=== PATIENT | female | born 1935 | race Caucasian/White ===

== ENCOUNTER 2016-08-02 23:30 | Emergency (ER) | payer OTHER, MEDICARE ==
[~2016-08-02] VITALS: Ht 152.4 cm; Wt 95.0 kg
[~2016-08-02 23:30] MED LIST: DORZ2SOL20 OPR; FLV1 PO; IBUP-1449 PO; OMEP20TA14 PO; SYMIN/8045 INH; VENL37.593 PO
[2016-08-02 23:40] VITALS: Ht 152.4 cm; Wt 95.0 kg
--- NOTE | 2016-08-03 00:04 | EMERGENCY ROOM VISIT NOTE ---
History Report prepared by Maria Victoria: Sendy Stiles Under the Supervision of: Dr. Mango Leos M.D. First contact with patient: 23:50 Chief Complaint: WEAKNESS Stated Complaint: WEAKNESS,LETHARGY, INCREASED PULSE-120 History of Present Illness The patient is an 81 year old female who presents to the Emergency Room with complaints of persistent weakness that began in April, but has worsened over past week. The patient states that she has a history of mesothelioma, and states that she had chemotherapy this past summer. She states that in April she finished radiation and since then has not been feeling well. The patient notes fatigue, decrease in appetite, and a decrease in fluid intake. Per the patient's family, they came to visit the patient for her birthday and noticed that the patient wasn't feeling well. They note that they took the patients vitals and noted that she is tachycardic, so they were concerned for dehydration. The patient states that she feels dizzy if she moves too quickly. She denies any vision changes, headaches, loss of consciousness, chest pain, abdominal pain, vomiting, rash, hematochezia, or melena. The patient states that her last bowel movement was this morning and states that it was normal. She states that her urine today has been foul smelling and has been dark in color. The patient states that she has had previous UTIs, but they have not been chronic. She notes that she was slightly anemic in the past, but denies any history of blood transfusions. The patient notes a history of hypertension , but denies any history of heart problems in the past. Source of History: patient Onset: April, over the past week Position: other (global) Quality: other (weakness) Timing: worsening, other (persistent) Associated Symptoms: + fatigue, + urinary symptoms (foul smelling and dark in color), No LOC, No abdominal pain, No chest pain, No headache, No hematochezia, No melena, No rash, No vomiting Note: Associated Symptoms: tachycardic heart rate Review of Systems See HPI for pertinent positives & negatives. A total of 10 systems reviewed and were otherwise negative. 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 (10) Monoclonal gammopathy of undetermined significance (11) Osteoarthritis (12) Osteopenia (13) Pleural effusion exudative (14) Thoracic compression fracture (15) Vitamin D deficiency Surgical Problems: (1) History of back surgery (2) History of bilateral salpingo-oophorectomy (BSO) (3) History of bronchoscopy (4) History of cardiac catheterization (5) History of cholecystectomy (6) History of colonoscopy (7) History of esophagogastroduodenoscopy (8) History of hysterectomy (9) History of knee replacement Family History Cancer Diabetes mellitus FH: lung disease Gallbladder disease Heart disease Hypertension Social History Smoking Status: Never Smoker Alcohol Use: none Drug Use: none Marital Status: Housing Status: lives with family Occupation Status: unemployed, other Current/Historical Medications Scheduled Cephalexin Monohydrate (Keflex), 500 MG PO TID Dorzolamide Hcl-Timolol Maleat (Cosopt Oph), 1 DROP OPR BID Losartan Potassium & Hydrochlo (Hyzaar), 1 TAB PO DAILY Omeprazole Magnesium (Prilosec Otc), 40 MG PO DAILY Venlafaxine Hcl (Effexor Xr), 75 MG PO DAILY Scheduled PRN Budesonide/Formoterol Fumarate (Symbicort 80/4.5 Inhaler), 2 PUFFS INH BID PRN for Shortness of Breath Ibuprofen Tab (Motrin), 400 MG PO QID PRN for Pain Allergies Coded Allergies: No Known Allergies (Verified , 10/06/15) Physical Exam Vital Signs Date Time Temp Pulse Resp B/P Pulse Ox O2 Delivery O2 Flow Rate FiO2 08/03/16 02:29 37.2 103 21 136/69 97 08/03/16 01:28 107 24 139/79 95 Room Air 08/03/16 00:59 106 21 156/70 100 Room Air 08/03/16 00:15 105 08/03/16 00:01 106 20 127/69 94 Room Air 109 103/66 115 94/61 08/02/16 23:40 36.7 114 20 132/77 94 Room Air Physical Exam GENERAL: Patient is well appearing and in minimal distress. HEENT: Pale conjunctivae. No acute trauma, normocephalic atraumatic, mucous membranes dry, no nasal congestion, no scleral icterus. NECK: No stridor, no adenopathy, no meningismus, trachea is midline. LUNGS: No dyspnea. Clear to auscultation and equal bilaterally. No wheeze, no rhonchi. HEART: Tachycardic rate and regular rhythm. No murmurs, rubs, gallops appreciated. ABDOMEN: Soft, nontender, bowel sounds positive, no masses appreciated, no peritonitis. BACK: No midline tenderness, no CVA tenderness EXTREMITIES: Normal motion all extremities, no cyanosis, no edema. NEUROLOGIC: Alert and oriented, no acute motor or sensory deficits, no focal weakness, cranial nerves grossly intact. SKIN: No rash, no jaundice, no diaphoresis. Medical Decision & Procedures ER Provider Diagnostic Interpretation: X ray results are stated below per my interpretation: Chest: elevated right hemidiaphragm with mild/moderate effusion. Some diffuse scarring of lungs. Elevated diaphragm is similar to previous. Laboratory Results 08/02/16 23:58 Red Blood Count 3.79, Mean Corpuscular Volume 90.2, Mean Corpuscular Hemoglobin 31.4, Mean Corpuscular Hemoglobin Concent 34.8, Mean Platelet Volume 9.2, Neutrophils (%) (Auto) 65.8, Lymphocytes (%) (Auto) 16.9, Monocytes (%) (Auto) 10.0, Eosinophils (%) (Auto) 6.0, Basophils (%) (Auto) 0.5, Neutrophils # (Auto ) 5.06, Lymphocytes # (Auto) 1.30, Monocytes # (Auto) 0.77, Eosinophils # (Auto ) 0.46, Basophils # (Auto) 0.04 08/02/16 23:58 Test 08/02/16 23:58 08/03/16 00:30 White Blood Count 7.69 K/uL (4.8-10.8) Red Blood Count 3.79 M/uL (4.2-5.4) Hemoglobin 11.9 g/dL (12.0-16.0) Hematocrit 34.2 % (37-47) Mean Corpuscular Volume 90.2 fL (80-100) Mean Corpuscular Hemoglobin 31.4 pg (25-34) Mean Corpuscular Hemoglobin Concent 34.8 g/dl (32-36) Platelet Count 127 K/uL (130-400) Mean Platelet Volume 9.2 fL (7.4-10.4) Neutrophils (%) (Auto) 65.8 % Lymphocytes (%) (Auto) 16.9 % Monocytes (%) (Auto) 10.0 % Eosinophils (%) (Auto) 6.0 % Basophils (%) (Auto) 0.5 % Neutrophils # (Auto) 5.06 K/uL (1.4-6.5) Lymphocytes # (Auto) 1.30 K/uL (1.2-3.4) Monocytes # (Auto) 0.77 K/uL (0.11-0.59) Eosinophils # (Auto) 0.46 K/uL (0-0.5) Basophils # (Auto) 0.04 K/uL (0-0.2) RDW Standard Deviation 43.9 fL (36.4-46.3) RDW Coefficient of Variation 13.4 % (11.5-14.5) Immature Granulocyte % (Auto) 0.8 % Immature Granulocyte # (Auto) 0.06 K/uL (0.00-0.02) Prothrombin Time 12.1 SECONDS (9.0-12.0) Prothromb Time International Ratio 1.1 (0.9-1.1) Activated Partial Thromboplast Time 25.2 SECONDS (21.0-31.0) Partial Thromboplastin Ratio 1.0 Anion Gap 12.0 mmol/L (3-11) Est Creatinine Clear Calc Drug Dose 38.5 ml/min Estimated GFR () 49.4 Estimated GFR (Non- 42.7 BUN/Creatinine Ratio 22.5 (10-20) Calcium Level 9.6 mg/dl (8.5-10.1) Phosphorus Level 2.3 mg/dl (2.5-4.9) Magnesium Level 1.7 mg/dl (1.8-2.4) Total Bilirubin 0.4 mg/dl (0.2-1) Direct Bilirubin 0.1 mg/dl (0-0.2) Aspartate Amino Transf (AST/SGOT) 33 U/L (15-37) Alanine Aminotransferase (ALT/SGPT) 27 U/L (12-78) Alkaline Phosphatase 109 U/L (45-117) Total Creatine Kinase 36 U/L (26-192) Creatine Kinase MB < 0.5 ng/ml (0.5-3.6) Creatine Kinase MB Ratio (0-3.0) Troponin I < 0.015 ng/ml (0-0.045) Pro-B-Type Natriuretic Peptide 156 pg/ml (0-1800) Total Protein 7.6 gm/dl (6.4-8.2) Albumin 3.0 gm/dl (3.4-5.0) Lipase 65 U/L (73-393) Urine Color DK YELLOW Urine Appearance CLOUDY (CLEAR) Urine pH 5.0 (4.5-7.5) Urine Specific [place] 1.023 (1.000-1.030) Urine Protein NEG (NEG) Urine Glucose (UA) NEG (NEG) Urine Ketones TRACE (NEG) Urine Occult Blood NEG (NEG) Urine Nitrite NEG (NEG) Urine Bilirubin NEG (NEG) Urine Urobilinogen NEG (NEG) Urine Leukocyte Esterase MODERATE (NEG) Urine WBC (Auto) >30 /hpf (0-5) Urine RBC (Auto) 0-4 /hpf (0-4) Urine Hyaline Casts (Auto) 5-10 /lpf (0-5) Urine Epithelial Cells (Auto) >30 /lpf (0-5) Urine Bacteria (Auto) 4+ (NEG) Urine Pathogenic Casts /lpf (0) Urine Mucus PRESENT (NONE PRSENT) Laboratory results as reviewed by me. Medications Administered Medications (Trade) Dose Ordered Sig/Carol Route Start Time Stop Time Status Last Admin Dose Admin Sodium Chloride 500 ml @ 999 mls/hr Q31M STAT IV 08/03/16 00:00 08/03/16 00:30 DC 08/03/16 00:08 999 MLS/HR Sodium Chloride (Nss 500ml) 500 ml @ 999 mls/hr Q31M STAT IV 08/03/16 00:36 08/03/16 01:06 DC 08/03/16 00:42 999 MLS/HR Ceftriaxone Sodium (Rocephin Inj) 1 gm NOW STAT IV 08/03/16 01:32 08/03/16 01:34 DC 08/03/16 01:41 1 GM ECG Indication: weakness Rate (beats per minute): 110 Rhythm: sinus tachycardia Findings: no acute ischemic change, no ectopy ED Course 2351: The patient was evaluated in room B7. A complete history and physical exam was performed. 0000: Ordered Sodium Chloride 500 ml @ 999 mls/hr IV. 0036: I reevlauated the patient and she is doing well. I discussed the exam findings with her and the patient's family notes that the patient had a chest x- ray that revealed slight fluid on the right lung. Ordered Sodium Chloride 500 ml @ 999 mls/hr IV. 0128: I reevaluated the patient at this time and she is resting comfortably. I discussed the exam findings with her and her family and I discussed the treatment plan. They all verbalized complete understanding and agreement. I offered further evaluation for the treatment, but she declined. She is ready to go home and will follow up with her appointment with her PCP tomorrow. 0132: Ordered Rocephin Inj 1 gm IV. Medical Decision Differential: Sepsis, Infectious (UTI/Pneumonia/Meningitis/etc), Metabolic/ Electrolyte Abnormality, Cardiac, Hepatic, Endocrine, Toxicologic, Neurologic, amongst other pathologies entertained. 81 yr old female with generalized weakness, strong urine, and lack of appetite. She is dehydrated appearing and BP much improved with fluid boluses. She is mildly tachycardic which improved with fluid though still a bit over 100. She is not in any distress and is feeling better. CXR with right pleural effusion with some lung scarring though I suspect this is chronic and notes recent CT Chest with same (not done at this hospital). She is having no respiratory distress and is not hypoxic nor SHOB and has clear lung sounds thus I feel this is unlikely infectious lung process. UA is clearly consistent with UTI. Given symptoms felt round IV rocephin reasonable and will do Keflex as outpatient given local resistance patterns. I discussed option of watching her in hospital but she would prefer to go home and her family members (who happen to be nurses) feel comfortable with her at home. She has PCP appointment in 12 hours and I stressed importance of keeping this so that repeat vitals can be optained. Stressed keeping well hydrated and if worsening symptoms or other concerns she will need to return for further evaluation. She has no headache, no neuro deficits, no falls and after discussing with family will hold on CT head as neurologic process unlikely. Impression Primary Impression: UTI (urinary tract infection) Additional Impression: Dehydration Scribe Attestation The scribe's documentation has been prepared under my direction and personally reviewed by me in its entirety. I confirm that the note above accurately reflects all work, treatment, procedures, and medical decision making performed by me. Departure Information Dispostion Home / Self-Care Prescriptions Cephalexin Monohydrate (Keflex) 500 Mg Cap 500 MG PO TID for 7 Days, #21 CAP Prov: Mango Leos M.D. 08/03/16 Referrals Vicente Jaquez M.D. (PCP) Forms HOME CARE DOCUMENTATION FORM, IMPORTANT VISIT INFORMATION Patient Instructions A Signature Page, ED UTI Pyelonephritis Female, My [facility] Additional Instructions Please keep your appointment later today with your Primary Provider as planned. Discuss review of your chest xray, labs, and have your vital signs rechecked. Rest and make sure to keep well hydrated. Problem Qualifiers Primary Impression: UTI (urinary tract infection) Urinary tract infection type: acute cystitis Hematuria presence: without hematuria Qualified Codes: N30.00 - Acute cystitis without hematuria
[2016-08-03] MEDS ORDERED: VENL75CA PO (00:30)
[2016-08-03] MEDS ORDERED: LOSA100T2 PO (00:31)
[2016-08-03 00:35] LABS: BASO % 0.5 %; BASO ABS # 0.04 K/uL (0-0.2); COMPLETE YES; HEMATOCRIT 34.2 % (37-47); IG% 0.8 %; LYMPH % 16.9 %; MEAN CELL VOLUME 90.2 fL (80-100); MEAN CORPUSCULAR HEMOGLOBIN 31.4 pg (25-34); MEAN CORPUSCULAR HGB CONC 34.8 g/dl (32-36); MEAN PLATELET VOLUME 9.2 fL (7.4-10.4); NEUT % 65.8 %; PLATELET COUNT 127 K/uL (130-400); RED BLOOD COUNT 3.79 M/uL (4.2-5.4); WHITE BLOOD COUNT 7.69 K/uL (4.8-10.8)
[2016-08-03] MEDS ORDERED: SODIUM CHLORIDE 0.9% 500ML 500 ML IV STA ×2 (00:36)
[2016-08-03 00:46] LABS: INR 1.1 (0.9-1.1); PROTHROMBIN TIME (PATIENT) 12.1 SECONDS (9.0-12.0)
[2016-08-03 00:54] LABS: ALT/SGPT 27 U/L (12-78); AST/SGOT 33 U/L (15-37); BLOOD UREA NITROGEN 27 mg/dl (7-18); BUN/CREATININE RATIO 22.5 (10-20); CALCIUM 9.6 mg/dl (8.5-10.1); CARBON DIOXIDE 27 mmol/L (21-32); CHLORIDE 98 mmol/L (98-107); GLUCOSE 112 mg/dl (70-99); MAGNESIUM 1.7 mg/dl (1.8-2.4); POTASSIUM 3.2 mmol/L (3.5-5.1); SODIUM 137 mmol/L (136-145)
[2016-08-03 00:56] LABS: ALKALINE PHOSPHATASE 109 U/L (45-117); PHOSPHORUS 2.3 mg/dl (2.5-4.9)
[2016-08-03 01:11] LABS: URINE APPEARANCE CLOUDY (CLEAR); URINE COLOR DK YELLOW; URINE EPITHELIAL CELL AUTO >30 /lpf (0-5); URINE NITRITE NEG (NEG); URINE SPECIFIC GRAVITY 1.023 (1.000-1.030); UROBILINOGEN NEG (NEG); ZZUR CULT IF INDIC CLEAN CATCH YES
[2016-08-03 01:16] LABS: MANUAL MICROSCOPIC REQUIRED? NO; REVIEW REQ? YES
[2016-08-03 01:23] LABS: URINE BILIRUBIN NEG (NEG)
[2016-08-03 01:25] LABS: URINE MUCUS PRESENT (NONE PRSENT)
[2016-08-03] MEDS ORDERED: CEFTRIAXONE SOD INJ 1 GM ADDVIAL IV STA (01:32)
[2016-08-03] MEDS ORDERED: CEPH500C PO (01:33)
[2016-08-03 02:29] VITALS: BP 136/69; PULSE 103; TEMP 37.2; O2SAT 97
--- NOTE | 2016-08-03 07:05 | DIAGNOSTIC IMAGING REPORT ---
CHEST ONE VIEW PORTABLE CLINICAL HISTORY: Weakness. History of mesothelioma. COMPARISON STUDY: Chest CT December 28, 2015. FINDINGS: There is no pneumothorax. Right hemithorax volume loss is noted. There is elevation of the right hemidiaphragm with a suspected small to moderate right pleural effusion. There is asymmetric interstitial thickening and nodular opacities within the right lung. Left lung is clear. Cardiac size is stable. IMPRESSION: Interval development of a [id number] right pleural effusion with asymmetric interstitial thickening and nodular opacities within the right lung. While nonspecific, the findings raise the possibility of disease progression although an infectious process could appear similar. Electronically signed by: Angelito Mehta M.D. 08/03/2016 7:03 AM Dictated Date/Time: 08/03/2016 6:57 AM
== END 2016-08-03 02:27 | disposition home or self-care (01) ==
LOC: C.EDB 23:31
DX: N39.0 Urinary tract infection, site not specified (principal); N30.00 Acute cystitis without hematuria; Z85.9 Personal history of malignant neoplasm, unspecified; I10 Essential (primary) hypertension; Z98.890 Other specified postprocedural states; Z90.49 Acquired absence of other specified parts of digestive tract; Z90.710 Acquired absence of both cervix and uterus; Z96.659 Presence of unspecified artificial knee joint; Z80.9 Family history of malignant neoplasm, unspecified; Z83.3 Family history of diabetes mellitus; Z82.49 Family history of ischemic heart disease and other diseases of the circulatory system

== ENCOUNTER → 2016-08-10 | Outpatient (CLI) | payer OTHER, MEDICARE ==
[~2016-08-10] MED LIST changes: +CEPH500C PO; +CHOL2000 PO; +DEXL60CA4 PO; +FLUO1TAB12; -FLV1 PO; +LOSA100T2 PO; +LOSA100T65 PO; +MAGN250T9 PO; +VENL75CA PO
--- NOTE | 2016-08-10 14:02 | DIAGNOSTIC IMAGING REPORT ---
VIDEO SWALLOW HISTORY: Z92.3 S/P radiation [id number] TECHNIQUE: Video fluoroscopic evaluation of swallowing was performed in the AP and lateral projections by the speech pathology staff. The patient is fed nectar-thick and thin liquid barium, a barium coated wafer, and barium pudding. FLUOROSCOPY TIME: 2.5 minutes. A cine loop was submitted. COMPARISON STUDY: None. FINDINGS: There is normal hyoid excursion and epiglottic deflection. No significant penetration or aspiration identified. Swallowing function is within normal limits. Mild esophageal dysmotility. IMPRESSION: 1. No aspiration identified. Mild esophageal dysmotility. 2. Please see the speech pathologist report for detailed findings and recommendations. Electronically signed by: Justin More M.D. 08/10/2016 2:00 PM Dictated Date/Time: 08/10/2016 1:56 PM
[2016-08-10 14:27] LABS: BASO % 0.5 %; BASO ABS # 0.04 K/uL (0-0.2); COMPLETE YES; EOS % 6.3 %; HEMATOCRIT 35.1 % (37-47); IG% 0.4 %; LYMPH % 9.2 %; LYMPH ABS # 0.68 K/uL (1.2-3.4); MEAN CELL VOLUME 91.6 fL (80-100); MEAN CORPUSCULAR HEMOGLOBIN 30.8 pg (25-34); MEAN CORPUSCULAR HGB CONC 33.6 g/dl (32-36); MEAN PLATELET VOLUME 9.3 fL (7.4-10.4); MONO % 9.2 %; NEUT % 74.4 %; PLATELET COUNT 150 K/uL (130-400); RED BLOOD COUNT 3.83 M/uL (4.2-5.4); WHITE BLOOD COUNT 7.41 K/uL (4.8-10.8)
--- NOTE | 2016-08-10 14:36 | SWALLOWING EVALUATION ---
HISTORY: This 81 year-old woman was referred for a VFSS at [facility] in order to rule out aspiration due to reported choking episodes with both food and liquids. The patient reports that she feels as though she has "an obstruction" in her throat at times as well. She indicated that she had swallowing difficulties prior to receiving her radiation and chemotherapy treatments, but they have worsened since these therapies have been completed. She also reports a poor appetite as food does not taste good, in addition to weight loss. PMH is significant for: mesothelioma (diagnosed summer), s/p VATS, COPD, anxiety and anemia. Radiation and chemotherapy treatments were completed on April of 2016. Currently the patient's diet level is regular. PROCEDURE: The patient was seen in the Radiology Department of [facility] for the VFSS. Cursory examination of the oral cavity revealed adequate dentition. Movement of the articulators was wnl. The patient was seated upright in a wheelchair and was viewed in both the Anterior-Posterior (A-P) and Lateral planes. Volitional phonation exercises completed in the A-P plane revealed bilateral vocal fold movement and vocal intensity within functional limits. In the lateral plane, the patient was given the following boluses: 1 tsp. thin liquid barium x 2, single swallow thin liquid barium self-presented and clinician-presented from a cup, sequential swallows of thin liquid barium self-presented from a straw, 1 tsp. nectar-thick liquid barium, single swallow nectar-thick liquid barium self-presented and clinician-presented from a cup, 1 tsp. barium pudding, and 1 club cracker with barium paste. The patient was then repositioned into the A-P plane and given the following boluses: 1 tsp. nectar-thick liquid barium and 1 tsp. barium pudding. RESULTS: Oral Stage: Lip closure was adequate. The patient was able to orally contain a liquid bolus upon command without lateral or posterior loss. Mastication was slow as was lingual motion for bolus transport. There was a collection of retention along the tongue after the swallow. The initiation of the pharyngeal swallow was delayed and occurred when the bolus head reached the valleculae. Pharyngeal Stage: Soft palate elevation was complete. Laryngeal elevation revealed complete superior movement of the thyroid cartilage with complete approximation of the arytenoids to the epiglottic base. Anterior hyoid excursion and epiglottic deflection were complete. Laryngeal vestibular closure was complete, with no evidence of contrast or air in the vestibule at the height of the swallow. The pharyngeal stripping wave and pharyngeal contraction were complete. The opening to the pharyngoesophageal segment was complete with distention and duration, without any bolus flow obstruction. Tongue base retraction was incomplete with a narrow column of contrast being noted between the tongue base and pharyngeal wall during the swallow. There was mild retention located in the valleculae after the swallow. There was no evidence of laryngeal penetration or aspiration for this study. Retention that remained in the pharynx was minimal. Esophageal Stage: There was mid-distal esophageal retention, suggestive of esophageal dysmotility. A liquid wash assisted to clear a majority of this retention. A prominent cricopharyngeus impression was also noted. SUMMARY/RECOMMENDATIONS: This patient presents with normal oral-pharyngeal swallowing. The patient does present with signs of esophageal dysfunction. The following is recommended: 1. Regular "slippery" diet and thin liquids. 2. Aspiration precautions, straws OK. Fully upright for meals and for 30-60 minutes after meals are complete. 3. Safe swallow strategies: Alternate solids and liquids. Small frequent meals and rest breaks during meals as needed. 4. Consider follow up with PCP or GI specialist for management of esophageal dysfunction (further testing and/or management of medications as appropriate). May also need to consider a Nutrition consult as needed due to poor appetite and risk of weight loss. A summary of the results and recommendations was discussed with the patient and understanding was verbalized. Both verbal and written information was provided and reviewed with the patient to improve comfort while eating (avoiding dry, thick, pasty, or doughy foods). She verbalized understanding. The patient reported she currently takes reflux medications but does not feel this is not assisting. Thank you for referral of this patient. Please contact me at if any additional information is needed.
[2016-08-10 14:44] LABS: BLOOD UREA NITROGEN 19 mg/dl (7-18); BUN/CREATININE RATIO 20.2 (10-20); CALCIUM 9.8 mg/dl (8.5-10.1); CARBON DIOXIDE 28 mmol/L (21-32); CHLORIDE 97 mmol/L (98-107); CREATININE 0.94 mg/dl (0.60-1.20); GLUCOSE 133 mg/dl (70-99); MAGNESIUM 1.5 mg/dl (1.8-2.4); POTASSIUM 3.1 mmol/L (3.5-5.1); SODIUM 136 mmol/L (136-145)
--- NOTE | 2016-08-17 06:31 | CODING QUERY MEDICAL NECESSITY ---
SUPPORTING DIAGNOSIS NEEDED Dr. Jaquez, A supporting diagnosis is required for the test/procedure performed on this patient in order for us to be reimbursed by the patient's insurance. Please provide a supporting diagnosis for the following test/procedure listed below next to the test name along with your signature. *If there is no additional diagnosis for this patient that would support the following test/procedure please document that below next to the test/procedure. Test(s)/Procedure(s) that require a supporting diagnosis: * ([id number]) B12 VITAMIN LEVEL DIAGNOSIS: DATE OF SERVICE: 08/10/16 Provider Signature: Date: Thank you Lalo Florez [facility] Information Management Once completed, please kindly fax back to [phone] For questions please call [phone]
== END | disposition home or self-care (01) ==
LOC: C.RAD 13:00
PROVIDERS: ATTEND Internal Medicine Geriatric Medicine
DX: R13.10 Dysphagia, unspecified (principal); Z92.3 Personal history of irradiation; N39.0 Urinary tract infection, site not specified; I10 Essential (primary) hypertension; E87.6 Hypokalemia; R53.83 Other fatigue; E55.9 Vitamin D deficiency, unspecified

== ENCOUNTER → 2016-08-15 | Outpatient (CLI) | payer OTHER, MEDICARE ==
[~2016-08-15] MED LIST changes: -CEPH500C PO
--- NOTE | 2016-08-15 12:48 | DIAGNOSTIC IMAGING REPORT ---
CHEST 2 VIEWS ROUTINE CLINICAL HISTORY: Cough, shortness of breath, malaise. COMPARISON STUDY: 08/03/2016 FINDINGS: The cardiac and mediastinal contours remain stable. There is a persistent right pleural effusion. There are diffuse right lung airspace opacity similar to the prior study. There is more focal right basilar consolidation.[ IMPRESSION: Persistent right lung volume loss, right pleural effusion, and diffuse interstitial right lung opacities. Electronically signed by: Jordy Sousa M.D. 08/15/2016 12:46 PM Dictated Date/Time: 08/15/2016 12:44 PM
== END | disposition home or self-care (01) ==
LOC: C.RADBC 12:25
PROVIDERS: ATTEND Internal Medicine Geriatric Medicine
DX: J90 Pleural effusion, not elsewhere classified (principal)

== ENCOUNTER 2016-08-30 20:32 | Inpatient (IN) | payer OTHER, MEDICARE ==
[~2016-08-30] VITALS: Ht 152.4 cm; Wt 87.4 kg
[~2016-08-30 20:32] MED LIST changes: -CHOL2000 PO; -DEXL60CA4 PO; -FLUO1TAB12; -LOSA100T65 PO; -MAGN250T9 PO; -VENL37.593 PO
[2016-08-30] MEDS ORDERED: LEVALBUTEROL 1.25MG/0.5ML NEB INH STA (20:56)
[2016-08-30] MEDS ORDERED: IPRATROPIUM BROMIDE NEB SOLN 0.02% 2.5 ML VIAL INH STA (20:56)
[2016-08-30] MEDS ORDERED: SODIUM CHLORIDE 0.9% 1000ML 1,000 ML IV STA (21:00)
--- NOTE | 2016-08-30 21:02 | EMERGENCY ROOM VISIT NOTE ---
History Report prepared by Maria Victoria: Phillip Kulkarni Under the Supervision of: Dr. Josué Tello M.D. 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 Per the patient's family, the patient suffers from Mesothelioma. The patient's oxygen perfusion level at home was 84% RA. Her heart rate was in the 100s. The patient denies chest pain, fevers, or any additional associated symptoms other than a dry cough. She denies a personal history or family history of blood clots. Source of History: patient, family Onset: BUSINESS INTEGRATION MANAGER Position: other (Respiratory System ) Timing: worsening Modifying Factors (Relieving): other (None) Associated Symptoms: + cough, No chest pain, No fevers Review of Systems See HPI for pertinent positives & negatives. A total of 10 systems reviewed and were otherwise negative. 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 (10) Monoclonal gammopathy of undetermined significance (11) Osteoarthritis (12) Osteopenia (13) Pleural effusion exudative (14) SIRS (systemic inflammatory response syndrome) (15) Thoracic compression fracture (16) Vitamin D deficiency Surgical Problems: (1) History of back surgery (2) History of bilateral salpingo-oophorectomy (BSO) (3) History of bronchoscopy (4) History of cardiac catheterization (5) History of cholecystectomy (6) History of colonoscopy (7) History of esophagogastroduodenoscopy (8) History of hysterectomy (9) History of knee replacement Family History Cancer Diabetes mellitus FH: lung disease Gallbladder disease Heart disease Hypertension Social History Smoking Status: Unknown if Ever Smoked Alcohol Use: none Drug Use: none Marital Status: Housing Status: lives with family Occupation Status: unemployed, other Current/Historical Medications Scheduled Cholecalciferol (Vitamin D3), 2,000 UNIT PO QAM Dexlansoprazole (Dexilant), 60 MG PO DAILYBB Dorzolamide Hcl-Timolol Maleat (Cosopt Oph), 1 DROP OPR BID Fluoxetine Hcl (Fluoxetine Hcl), UD Losartan Potassium (Cozaar), 100 MG PO QAM Magnesium (Magnesium), 250 MG PO QPM Venlafaxine Hcl (Venlafaxine Extended Rel), 37.5 MG PO UD Allergies Coded Allergies: No Known Allergies (Verified , 08/30/16) Physical Exam Vital Signs Date Time Temp Pulse Resp B/P Pulse Ox O2 Delivery O2 Flow Rate FiO2 08/30/16 22:45 100 20 163/69 95 Nasal Cannula 2.0 08/30/16 21:12 106 20 97 Nasal Cannula 2.0 08/30/16 21:04 96 Nasal Cannula 2.0 08/30/16 21:04 96 Nasal Cannula 2.0 08/30/16 20:57 96 2.0 08/30/16 20:51 104 08/30/16 20:38 36.9 115 20 134/76 84 Room Air Physical Exam GENERAL: Patient is in no acute distress. HEENT: No acute trauma, normocephalic atraumatic, mucous membranes moist, no nasal congestion, no scleral icterus. NECK: No stridor, no adenopathy, no meningismus, trachea is midline. LUNGS: Decreased breath sounds bilaterally. Breath sounds equal. Wheezing bilaterally, crackles on right. HEART: Mild tachycardia. No murmurs. Regular rhythm. ABDOMEN: Soft, nontender, bowel sounds positive, no hernias, no peritonitis. EXTREMITIES: No cyanosis or edema, full range of motion of all the joints without pain or difficulty, no signs for acute trauma. NEUROLOGIC: Oriented x 3, no acute motor or sensory deficits, no focal weakness. SKIN: No rash, no jaundice, no diaphoresis. Medical Decision & Procedures ER Provider Diagnostic Interpretation: X ray results and stated below per my interpretation and radiologist interpretation. Other radiology results and stated below per my review and radiologist interpretation: CHEST ONE VIEW PORTABLE CLINICAL HISTORY: Respiratory distress COMPARISON STUDY: 08/15/2016 FINDINGS: The cardiac and mediastinal contours remain stable. There is elevation right hemidiaphragm. There is right-sided volume loss. There is right-sided pleural thickening/fluid. There are persistent diffuse right lung interstitial opacities. Since the prior study, the patient has developed moderate left lung interstitial opacities. Diagnostic considerations include pulmonary edema versus a bilateral inflammatory process. Clinical and radiographic follow-up is recommended.[ IMPRESSION: 1. Persistent volume loss in the right hemithorax, right-sided pleural fluid/thickening, and diffuse interstitial opacities 2. Interval development of moderate left lung interstitial opacities. 3. Diagnostic considerations include pneumonia versus pulmonary edema. Clinical and radiographic follow-up is recommended Electronically signed by: Jordy Sousa M.D. 08/30/2016 9:29 PM Dictated Date/Time: 08/30/2016 9:[address] ANGIOGRAM OF THE CHEST CLINICAL HISTORY: Respiratory distress. Atypical chest pain. Hypoxia. Mesothelioma. COMPARISON STUDY: No previous studies for comparison. TECHNIQUE: Following the IV administration of 112 mL of Optiray-320, CT angiogram of the thorax was performed from the thoracic inlet to the lung bases utilizing the pulmonary embolus protocol. Images are reviewed in the axial, sagittal, and coronal planes. IV contrast was administered without complication. MIP imaging was performed. CT DOSE: 438.56 mGy.cm FINDINGS: There is a stable 17 mm hypodensity within the left lobe of the liver. There are mildly enlarged mediastinal and hilar lymph nodes, similar to the preceding study. There was no evidence of thoracic aortic dilatation. There were no pulmonary artery filling defects to indicate acute pulmonary embolism. There is mild right-sided pleural thickening. As a small amount of perihepatic fluid on the right. There is extensive right lung pulmonary consolidation. There is bronchiectasis. There are multifocal groundglass opacities within the left lung. Diagnostic considerations include pneumonia versus pulmonary edema. There is a lower thoracic compression fracture. IMPRESSION: 1. No CT evidence of acute pulmonary embolism 2. No CT evidence of acute thoracic aortic aneurysm or dissection 3. Diffuse esophageal thickening 4. Mild mediastinal and hilar adenopathy unchanged from the prior study 5. Extensive right lung consolidation with bronchiectasis. 6. Multifocal left lung groundglass opacities, consistent with either a multifocal pneumonia or alveolar edema. Clinical and radiographic follow-up is recommended. Electronically signed by: Jordy Sousa M.D. 08/30/2016 10:31 PM Dictated Date/Time: 08/30/2016 10:25 PM Laboratory Results 08/30/16 20:35 Red Blood Count 3.89, Mean Corpuscular Volume 89.5, Mean Corpuscular Hemoglobin 30.1, Mean Corpuscular Hemoglobin Concent 33.6, Mean Platelet Volume 9.3, Neutrophils (%) (Auto) 83.6, Lymphocytes (%) (Auto) 7.1, Monocytes (%) (Auto) 6.4, Eosinophils (%) (Auto) 1.9, Basophils (%) (Auto) 0.2, Neutrophils # (Auto) 10.03, Lymphocytes # (Auto) 0.85, Monocytes # (Auto) 0.77, Eosinophils # (Auto) 0.23, Basophils # (Auto) 0.03 08/30/16 20:35 Test 08/30/16 20:35 08/30/16 22:58 White Blood Count 12.01 K/uL (4.8-10.8) Red Blood Count 3.89 M/uL (4.2-5.4) Hemoglobin 11.7 g/dL (12.0-16.0) Hematocrit 34.8 % (37-47) Mean Corpuscular Volume 89.5 fL (80-100) Mean Corpuscular Hemoglobin 30.1 pg (25-34) Mean Corpuscular Hemoglobin Concent 33.6 g/dl (32-36) Platelet Count 178 K/uL (130-400) Mean Platelet Volume 9.3 fL (7.4-10.4) Neutrophils (%) (Auto) 83.6 % Lymphocytes (%) (Auto) 7.1 % Monocytes (%) (Auto) 6.4 % Eosinophils (%) (Auto) 1.9 % Basophils (%) (Auto) 0.2 % Neutrophils # (Auto) 10.03 K/uL (1.4-6.5) Lymphocytes # (Auto) 0.85 K/uL (1.2-3.4) Monocytes # (Auto) 0.77 K/uL (0.11-0.59) Eosinophils # (Auto) 0.23 K/uL (0-0.5) Basophils # (Auto) 0.03 K/uL (0-0.2) RDW Standard Deviation 46.0 fL (36.4-46.3) RDW Coefficient of Variation 14.1 % (11.5-14.5) Immature Granulocyte % (Auto) 0.8 % Immature Granulocyte # (Auto) 0.10 K/uL (0.00-0.02) Prothrombin Time 12.7 SECONDS (9.0-12.0) Prothromb Time International Ratio 1.2 (0.9-1.1) Activated Partial Thromboplast Time 27.1 SECONDS (21.0-31.0) Partial Thromboplastin Ratio 1.0 Anion Gap 11.0 mmol/L (3-11) Est Creatinine Clear Calc Drug Dose 46.2 ml/min Estimated GFR () 66.4 Estimated GFR (Non- 57.3 BUN/Creatinine Ratio 19.6 (10-20) Calcium Level 9.5 mg/dl (8.5-10.1) Total Bilirubin 0.7 mg/dl (0.2-1) Aspartate Amino Transf (AST/SGOT) 33 U/L (15-37) Alanine Aminotransferase (ALT/SGPT) 25 U/L (12-78) Alkaline Phosphatase 144 U/L (45-117) Troponin I < 0.015 ng/ml (0-0.045) Pro-B-Type Natriuretic Peptide 508 pg/ml (0-1800) Total Protein 7.7 gm/dl (6.4-8.2) Albumin 2.5 gm/dl (3.4-5.0) Globulin 5.2 gm/dl (2.5-4.0) Albumin/Globulin Ratio 0.5 (0.9-2) Lactic Acid Level 1.1 mmol/L (0.4-2.0) Laboratory results reviewed by me. Medications Administered Medications (Trade) Dose Ordered Sig/Carol Route Start Time Stop Time Status Last Admin Dose Admin Levalbuterol (Xopenex 1.25MG/ 0.5ML Neb) 1.25 mg NOW STAT INH 08/30/16 20:56 08/30/16 21:01 DC 08/30/16 21:12 1.25 MG Ipratropium [place] 0.5 mg 0.5 mg NOW STAT INH 08/30/16 20:56 08/30/16 21:01 DC 08/30/16 21:12 0.5 MG Sodium Chloride (Nss 1000ml) 1,000 ml @ 200 mls/hr Q5H STAT IV 08/30/16 21:00 08/31/16 01:59 08/30/16 21:00 200 MLS/HR Piperacillin Sod/ Tazobactam Sod (Zosyn Iv) 4.5 gm NOW STAT IV 08/30/16 21:52 08/30/16 21:54 DC 08/30/16 22:23 4.5 GM ECG Indication: SOB/dyspnea Rate (beats per minute): 108 Rhythm: sinus tachycardia Findings: no ectopy, other (Poor r-wave progression) ED Course 2054: The patient was evaluated in room C2. A complete history and physical exam was performed. 2055: Ordered Ipratropium [place] 0.5 mg INH, Levalbuterol 1.25 mg INH. 2099: Ordered Sodium Chloride 1,000 ml @ 200 mls/hr IV. 2151: Ordered Zosyn IV 4.5 gm IV. 2237: I updated the patient of the treatment plan. She is agreeable at this time. 2242: Discussed the patient's case with Dr. Kerr ([facility] [place] The patient will be evaluated for further management. Medical Decision Differential diagnosis includes but is not limited to worsening mesothelioma, bronchitis, pneumonia, CHF, anemia, cardiac ischemia, pneumothorax, pe There is a mild leukocytosis which could be consistent with infection, no concerning anemia. No significant electrolyte abnormality, kidney failure or hepatitis. Chest x-ray shows chronic changes to the right lung, there is a pneumonia to the left lung which appears new. Blood cultures are pending. EKG shows a sinus tachycardia, no acute ischemia. Cardiac enzyme testing 1 is not consistent with acute cardiac injury. Lactic acid level is not elevated making sepsis less likely. Chest CT does show pneumonia on the left, there was no pulmonary embolus. BNP is not elevated making CHF less likely. The patient presents with hypoxia, cough and fatigue. She appears to have pneumonia by workup. She received a Xopenex Atrovent neb, IV saline. She received IV Zosyn as antibiotic coverage. The patient requires admission/observation. I did speak to the patient and to case management. I talked to the family as well. The on-call hospitalist was consulted. Consults Time Called: 2239 Consulting Physician: Dr. Kerr ([facility] [place] Returned Call: 2242 Discussed the patient's case with Dr. Kerr ([facility] [place] The patient will be evaluated for further management. Impression Primary Impression: Hypoxia Additional Impression: Pneumonia Scribe Attestation The scribe's documentation has been prepared under my direction and personally reviewed by me in its entirety. I confirm that the note above accurately reflects all work, treatment, procedures, and medical decision making performed by me. Departure Information Dispostion Being Evaluated By Hospitalist Referrals Devin Jaquez M.D. (PCP) Patient Instructions My [facility] Problem Qualifiers
[2016-08-30 21:12] VITALS: PULSE 106; O2SAT 97
--- NOTE | 2016-08-30 21:30 | DIAGNOSTIC IMAGING REPORT ---
CHEST ONE VIEW PORTABLE CLINICAL HISTORY: Respiratory distress COMPARISON STUDY: 08/15/2016 FINDINGS: The cardiac and mediastinal contours remain stable. There is elevation right hemidiaphragm. There is right-sided volume loss. There is right-sided pleural thickening/fluid. There are persistent diffuse right lung interstitial opacities. Since the prior study, the patient has developed moderate left lung interstitial opacities. Diagnostic considerations include pulmonary edema versus a bilateral inflammatory process. Clinical and radiographic follow-up is recommended.[ IMPRESSION: 1. Persistent volume loss in the right hemithorax, right-sided pleural fluid/thickening, and diffuse interstitial opacities 2. Interval development of moderate left lung interstitial opacities. 3. Diagnostic considerations include pneumonia versus pulmonary edema. Clinical and radiographic follow-up is recommended Electronically signed by: Jordy Sousa M.D. 08/30/2016 9:29 PM Dictated Date/Time: 08/30/2016 9:26 PM
[2016-08-30] MEDS ORDERED: DEXL60CA4 PO (21:33)
[2016-08-30] MEDS ORDERED: FLUO1TAB12 (21:33)
[2016-08-30] MEDS ORDERED: MAGN250T9 PO (21:33)
[2016-08-30] MEDS ORDERED: VENL37.593 PO (21:33)
[2016-08-30] MEDS ORDERED: CHOL2000 PO (21:33)
[2016-08-30] MEDS ORDERED: LOSA100T65 PO (21:33)
[2016-08-30 21:34] LABS: BASO % 0.2 %; BASO ABS # 0.03 K/uL (0-0.2); COMPLETE YES; EOS % 1.9 %; HEMATOCRIT 34.8 % (37-47); IG% 0.8 %; LYMPH % 7.1 %; LYMPH ABS # 0.85 K/uL (1.2-3.4); MEAN CELL VOLUME 89.5 fL (80-100); MEAN CORPUSCULAR HEMOGLOBIN 30.1 pg (25-34); MEAN CORPUSCULAR HGB CONC 33.6 g/dl (32-36); MEAN PLATELET VOLUME 9.3 fL (7.4-10.4); MONO % 6.4 %; NEUT % 83.6 %; PLATELET COUNT 178 K/uL (130-400); RED BLOOD COUNT 3.89 M/uL (4.2-5.4); WHITE BLOOD COUNT 12.01 K/uL (4.8-10.8)
[2016-08-30 21:40] LABS: ALT/SGPT 25 U/L (12-78); AST/SGOT 33 U/L (15-37); BLOOD UREA NITROGEN 18 mg/dl (7-18); BUN/CREATININE RATIO 19.6 (10-20); CALCIUM 9.5 mg/dl (8.5-10.1); CARBON DIOXIDE 24 mmol/L (21-32); CHLORIDE 102 mmol/L (98-107); CREATININE 0.94 mg/dl (0.60-1.20); GLUCOSE 114 mg/dl (70-99); POTASSIUM 4.3 mmol/L (3.5-5.1); SODIUM 137 mmol/L (136-145)
[2016-08-30 21:45] LABS: ALB/GLOB RATIO 0.5 (0.9-2); ALKALINE PHOSPHATASE 144 U/L (45-117); INR 1.2 (0.9-1.1); PROTHROMBIN TIME (PATIENT) 12.7 SECONDS (9.0-12.0)
[2016-08-30] MEDS ORDERED: PIPERACILLIN/TAZOBACTAM 4.5 GM/100ML D5W IV STA (21:52)
[2016-08-30] MEDS ORDERED: OPTIRAY 320 IV PRN (22:00)
--- NOTE | 2016-08-30 22:32 | DIAGNOSTIC IMAGING REPORT ---
CT ANGIOGRAM OF THE CHEST CLINICAL HISTORY: Respiratory distress. Atypical chest pain. Hypoxia. Mesothelioma. COMPARISON STUDY: No previous studies for comparison. TECHNIQUE: Following the IV administration of 112 mL of Optiray-320, CT angiogram of the thorax was performed from the thoracic inlet to the lung bases utilizing the pulmonary embolus protocol. Images are reviewed in the axial, sagittal, and coronal planes. IV contrast was administered without complication. MIP imaging was performed. CT DOSE: 438.56 mGy.cm FINDINGS: There is a stable 17 mm hypodensity within the left lobe of the liver. There are mildly enlarged mediastinal and hilar lymph nodes, similar to the preceding study. There was no evidence of thoracic aortic dilatation. There were no pulmonary artery filling defects to indicate acute pulmonary embolism. There is mild right-sided pleural thickening. As a small amount of perihepatic fluid on the right. There is extensive right lung pulmonary consolidation. There is bronchiectasis. There are multifocal groundglass opacities within the left lung. Diagnostic considerations include pneumonia versus pulmonary edema. There is a lower thoracic compression fracture. IMPRESSION: 1. No CT evidence of acute pulmonary embolism 2. No CT evidence of acute thoracic aortic aneurysm or dissection 3. Diffuse esophageal thickening 4. Mild mediastinal and hilar adenopathy unchanged from the prior study 5. Extensive right lung consolidation with bronchiectasis. 6. Multifocal left lung groundglass opacities, consistent with either a multifocal pneumonia or alveolar edema. Clinical and radiographic follow-up is recommended. Electronically signed by: Jordy Sousa M.D. 08/30/2016 10:31 PM Dictated Date/Time: 08/30/2016 10:25 PM
[2016-08-30] MEDS ORDERED: PIPERACILL/TAZOBAC IV 4.5 GM in DEXTROSE 5% 100ML 100 ML IV STA (23:24)
[2016-08-30] MEDS ORDERED: MAGNESIUM HYDROXIDE SUSP 30 ML UDC PO PRN (23:30)
[2016-08-30] MEDS ORDERED: ACETAMINOPHEN 325 MG TAB PO PRN (23:30)
[2016-08-30] MEDS ORDERED: ALUMINUM/MAGNESIUM/SIMETH (MAALOX MAX) 30 ML UDC PO PRN (23:30)
[2016-08-30] MEDS ORDERED: ONDANSETRON INJ 2 MG/ML 2 ML VIAL IV PRN (23:30)
[2016-08-31] VITALS (13 sets, daily range): BP systolic 123–145; BP diastolic 65–85; PULSE 80–98; TEMP 36.7–37.5; O2SAT 87–95; BMI 36.6
[2016-08-31] MEDS ORDERED: LEVOFLOXACIN / D5W 750 MG in PREMIXED IN D5W 150 ML IV SCH (01:01)
[2016-08-31] MEDS ORDERED: PIPERACILL/TAZOBAC CONSULT ACTIVE PRN (01:15)
[2016-08-31] MEDS ORDERED: LEVOFLOXACIN CONSULT ACTIVE PRN (01:15)
--- NOTE | 2016-08-31 03:19 | History and Physical ---
History & Physical Date & Time of Service: Aug 31, 2016 at 03:15 Chief Complaint: Hypoxia, Sirs Primary Care Physician: Vicente Jaquez M.D. History of Present Illness this is an 81 yo f with a h/o mesothelioma that is presenting to us with weakness and general fatigue which has been worsening since Aug 21. The patient states that she has been having increasing fatigue and has been checking her O2 sat periodically at home. They have been running in the 88-89% range and her pulse has been in the low hundreds. She also feels like her appetite has been becoming very poor. She denies any fever or chest pain at home but increasing SOBOE that resolves with rest. She recently was seen by her PCP for a 2 step however because of fatigue they were unable to complete it. This evening the patient had an episode of coughing and her sat dropped to the 70s which concerned the daughter and they brought her into the ED. She was evaluated in the ED and found to have a leukocytosis and a consolidation in the RLL concerning for PNA and bronchiectasis. She was given Past Medical/Surgical History Surgical Problems: (1) History of back surgery Status: Resolved (2) History of hysterectomy Status: Resolved (3) History of knee replacement Status: Resolved Family History Cancer Diabetes mellitus FH: lung disease Gallbladder disease Heart disease Hypertension Social History Smoking Status: Unknown if Ever Smoked Drug Use: none Marital Status: Occupational Status: unemployed, other Immunizations History of Influenza Vaccine: Yes Influenza Vaccine Date: May 13, 2009 History of Tetanus Vaccine?: No History of Pneumococcal: Yes Pneumococcal Date: May 27, 2005 History of Hepatitis B Vaccine: No Multi-Drug Resistant Organisms History of MDRO: No Allergies Coded Allergies: No Known Allergies (Verified , 08/30/16) Home Medications Scheduled Cholecalciferol (Vitamin D3), 2,000 UNIT PO QAM Dexlansoprazole (Dexilant), 60 MG PO DAILYBB Dorzolamide Hcl-Timolol Maleat (Cosopt Oph), 1 DROP OPR BID Fluoxetine Hcl (Fluoxetine Hcl), UD Losartan Potassium (Cozaar), 100 MG PO QAM Magnesium (Magnesium), 250 MG PO QPM Venlafaxine Hcl (Venlafaxine Extended Rel), 37.5 MG PO UD Review of Systems Constitutional: No fever Eyes: No worsening of vision ENT: No hearing loss Respiratory: + cough, + dyspnea at rest, + dyspnea on exertion, + shortness of breath, No sputum, No wheezing Cardiovascular: No chest pain Abdomen: No constipation, No diarrhea, No nausea, No pain, No vomiting Musculoskeletal: No joint pain, No muscle pain Neurologic: + balance problems, + weakness, No memory loss, No numbness/ tingling Endocrine: + fatigue Integumentary: No rash Physical Exam Vital Signs Date Time Temp Pulse Resp B/P Pulse Ox O2 Delivery O2 Flow Rate FiO2 08/31/16 01:23 36.8 94 20 143/85 94 Nasal Cannula 2.0 08/31/16 00:12 91 18 153/80 95 08/30/16 22:45 100 20 163/69 95 Nasal Cannula 2.0 08/30/16 21:12 106 20 97 Nasal Cannula 2.0 08/30/16 21:04 96 Nasal Cannula 2.0 08/30/16 21:04 96 Nasal Cannula 2.0 08/30/16 20:57 96 2.0 08/30/16 20:51 104 08/30/16 20:38 36.9 115 20 134/76 84 Room Air General Appearance: WD/WN, no apparent distress Head: normocephalic, atraumatic Eyes: normal inspection ENT: normal ENT inspection Neck: supple Respiratory/Chest: no respiratory distress, no accessory muscle use, + decreased breath sounds (right base along with crackles noted) Cardiovascular: regular rate, rhythm, no murmur Abdomen/GI: normal bowel sounds, non tender, soft Back: normal inspection Extremities/Musculoskelatal: normal inspection, no calf tenderness, no pedal edema Neurologic/Psych: alert, normal mood/affect, oriented x 3 Skin: normal color, warm/dry, no rash Lymphatic: no adenopathy Diagnostics Laboratory Results Results Past 24 Hours Test 08/30/16 20:35 08/30/16 22:58 Range/Units White Blood Count 12.01 4.8-10.8 K/uL Red Blood Count 3.89 4.2-5.4 M/uL Hemoglobin 11.7 12.0-16.0 g/dL Hematocrit 34.8 37-47 % Mean Corpuscular Volume 89.5 80-100 fL Mean Corpuscular Hemoglobin 30.1 25-34 pg Mean Corpuscular Hemoglobin Concent 33.6 32-36 g/dl Platelet Count 178 130-400 K/uL Mean Platelet Volume 9.3 7.4-10.4 fL Neutrophils (%) (Auto) 83.6 % Lymphocytes (%) (Auto) 7.1 % Monocytes (%) (Auto) 6.4 % Eosinophils (%) (Auto) 1.9 % Basophils (%) (Auto) 0.2 % Neutrophils # (Auto) 10.03 1.4-6.5 K/uL Lymphocytes # (Auto) 0.85 1.2-3.4 K/uL Monocytes # (Auto) 0.77 0.11-0.59 K/uL Eosinophils # (Auto) 0.23 0-0.5 K/uL Basophils # (Auto) 0.03 0-0.2 K/uL RDW Standard Deviation 46.0 36.4-46.3 fL RDW Coefficient of Variation 14.1 11.5-14.5 % Immature Granulocyte % (Auto) 0.8 % Immature Granulocyte # (Auto) 0.10 0.00-0.02 K/uL Prothrombin Time 12.7 9.0-12.0 SECONDS Prothromb Time International Ratio 1.2 0.9-1.1 Activated Partial Thromboplast Time 27.1 21.0-31.0 SECONDS Partial Thromboplastin Ratio 1.0 Sodium Level 137 136-145 mmol/L Potassium Level 4.3 3.5-5.1 mmol/L Chloride Level 102 98-107 mmol/L Carbon Dioxide Level 24 21-32 mmol/L Anion Gap 11.0 3-11 mmol/L Blood Urea Nitrogen 18 7-18 mg/dl Creatinine 0.94 0.60-1.20 mg/dl Est Creatinine Clear Calc Drug Dose 46.2 ml/min Estimated GFR () 66.4 Estimated GFR (Non- 57.3 BUN/Creatinine Ratio 19.6 10-20 Random Glucose 114 70-99 mg/dl Calcium Level 9.5 8.5-10.1 mg/dl Total Bilirubin 0.7 0.2-1 mg/dl Aspartate Amino Transf (AST/SGOT) 33 15-37 U/L Alanine Aminotransferase (ALT/SGPT) 25 12-78 U/L Alkaline Phosphatase 144 45-117 U/L Troponin I < 0.015 0-0.045 ng/ml Pro-B-Type Natriuretic Peptide 508 0-1800 pg/ml Total Protein 7.7 6.4-8.2 gm/dl Albumin 2.5 3.4-5.0 gm/dl Globulin 5.2 2.5-4.0 gm/dl Albumin/Globulin Ratio 0.5 0.9-2 Lactic Acid Level 1.1 0.4-2.0 mmol/L Microbiology Results 08/30/16 Blood Culture, Received Pending 08/30/16 Blood Culture, Received Pending Diagnostic Radiology [~ rep ct add3]] CT ANGIOGRAM OF THE CHEST CLINICAL HISTORY: Respiratory distress. Atypical chest pain. Hypoxia. Mesothelioma. COMPARISON STUDY: No previous studies for comparison. TECHNIQUE: Following the IV administration of 112 mL of Optiray-320, CT angiogram of the thorax was performed from the thoracic inlet to the lung bases utilizing the pulmonary embolus protocol. Images are reviewed in the axial, sagittal, and coronal planes. IV contrast was administered without complication. MIP imaging was performed. CT DOSE: 438.56 mGy.cm FINDINGS: There is a stable 17 mm hypodensity within the left lobe of the liver. There are mildly enlarged mediastinal and hilar lymph nodes, similar to the preceding study. There was no evidence of thoracic aortic dilatation. There were no pulmonary artery filling defects to indicate acute pulmonary embolism. There is mild right-sided pleural thickening. As a small amount of perihepatic fluid on the right. There is extensive right lung pulmonary consolidation. There is bronchiectasis. There are multifocal groundglass opacities within the left lung. Diagnostic considerations include pneumonia versus pulmonary edema. There is a lower thoracic compression fracture. IMPRESSION: 1. No CT evidence of acute pulmonary embolism 2. No CT evidence of acute thoracic aortic aneurysm or dissection 3. Diffuse esophageal thickening 4. Mild mediastinal and hilar adenopathy unchanged from the prior study 5. Extensive right lung consolidation with bronchiectasis. 6. Multifocal left lung groundglass opacities, consistent with either a multifocal pneumonia or alveolar edema. Clinical and radiographic follow-up is recommended. CLINICAL HISTORY: Respiratory distress COMPARISON STUDY: 08/15/2016 FINDINGS: The cardiac and mediastinal contours remain stable. There is elevation right hemidiaphragm. There is right-sided volume loss. There is right-sided pleural thickening/fluid. There are persistent diffuse right lung interstitial opacities. Since the prior study, the patient has developed moderate left lung interstitial opacities. Diagnostic considerations include pulmonary edema versus a bilateral inflammatory process. Clinical and radiographic follow-up is recommended.[ IMPRESSION: 1. Persistent volume loss in the right hemithorax, right-sided pleural fluid/thickening, and diffuse interstitial opacities 2. Interval development of moderate left lung interstitial opacities. 3. Diagnostic considerations include pneumonia versus pulmonary edema. Clinical and radiographic follow-up is recommended Impression Assessment and Plan This is an 81 yo f that is presenting to us with right lower lobe pna in the setting of SIRS. history of Mesothelioma SIRS criteria as evidenced by hypoxia, tachy most likely secondary to pulmonary source - tele admission - zosyn and levo - repeat CXR in am - O2 per nursing protocol - blood culture pending - sputum culture - duoneb - repeat cbc in am H/O mesothelioma would like a hem onc consult because they follow with someone out of town - will discuss with day team would also like palliative care discussion Depression - continue fluoxetine and venlafaxine Glaucoma - cont cospot HTN - cont losartan DVT prophylaxis - lovenox full code Advanced Directives Existing Living Will: Yes Existing Power of Fluid Pump Operator: No Resuscitation Status FULL RESUSCITATION VTE Prophylaxis VTE Risk Assessment Done? Y/N: Yes Risk Level: Moderate Given or contraindicated: Enoxaparin (Lovenox)SQ Social Service Consult None Apply Note Total Time: Critical Care 30 - 74 minutes Additional Copies To Vicente Jaquez M.D. Assessment and Plan Attending Addendum: I have physically seen and examined this patient, have directed their medical care, have supervised the medical residents activities, and agree with the H&P as noted above, with the following changes: NONE The patient is awake, well-developed and adequately nourished, alert and oriented 3, normocephalic and atraumatic, looks fatigued, lying in bed and in no acute distress. HEENT--PERRL, EOMI, mucous membranes and oropharynx dry. Neck--supple, no JVD or bruits, thyroid normal, trachea midline, no adenopathy. Heart--normal S1 and S2, no extra beats, no murmurs, rubs or gallops. Lungs--decreased breath sounds at the bases bilaterally, no respiratory distress , no accessory muscle use. Abdomen--normal bowel sounds and soft, nontender and nondistended, no hernias or masses, no organomegaly. Extremities--no cyanosis, clubbing or edema. There are good distal pulses b/l. Dermatologic--normal skin turgor, normal color, warm and dry, no abnormal lymph nodes, no rash. Neurologic--cranial nerves II through XII grossly intact, motor and sensory examination normal. Rheumatologic--normal range of motion, nontender, muscles and joints. Psychiatric--normal affect. Assessment and Plan: Mesothelioma/extensive right lung consolidation with bronchiectasis/multifocal left lung pneumonia--patient be admitted to the telemetry unit for close oxygen monitoring. We'll place on vancomycin IV renal dosing, and Zosyn IV, and Levaquin IV along with Xopenex and Atrovent nebulizers and expectorants. Continue nasal cannula 2 L O2 titrated to keep pulse ox greater than or equal to 92%. Mesothelioma--family reports that her last CT showed some progression. She follows with [facility], but does need to establish with a local oncologist , to be able to get local chemotherapy treatment. GERD--on Dexilant 60 mg by mouth daily, formulary interchange. Depression--continue fluoxetine 20mg daily, and venlafaxine ER 37.5 mg by mouth daily. Hypertension--continue losartan 100 mg every morning. Glaucoma--continue Cosopt 1 drop OPR twice a day.
[2016-08-31] MEDS: PIPERACILL/TAZOBAC IV 3.375 GM in DEXTROSE 5% 100ML IV SCH ×3 (03:44→20:27)
[2016-08-31] MEDS: PANTOprazole SOD 40 MG TAB PO SCH (06:18)
--- NOTE | 2016-08-31 07:14 | DIAGNOSTIC IMAGING REPORT ---
CHEST ONE VIEW PORTABLE CLINICAL HISTORY: pnea dyspnea COMPARISON STUDY: 09/09/2016 FINDINGS: No significant change radiographically. Diffuse increased parenchymal density right and to a lesser extent left hemithorax. Chronic elevation right hemidiaphragm. No major interval change in the prior study. No true consolidative components at the current time. IMPRESSION: Nonspecific bilateral parenchymal infiltrative and or pulmonary edematous change. No change in the prior study. Chronic elevation right hemidiaphragm. Electronically signed by: Michael Shell M.D. 08/31/2016 7:13 AM Dictated Date/Time: 08/31/2016 7:12 AM
[2016-08-31] MEDS: LOSARTAN POTASSIUM 50 MG TAB PO SCH (07:42)
[2016-08-31] MEDS: CHOLECALCIFEROL 1000 INTER.UNIT TAB PO SCH (07:42)
[2016-08-31] MEDS: DORZOLAMIDE/TIMOLOL 22.3/6.8MG/ML 10 ML BTL OPR SCH ×2 (07:43→20:28)
[2016-08-31] MEDS: ENOXAPARIN 40 MG/0.4 ML SYR SQ SCH (07:44)
[2016-08-31] MEDS: FLUOXETINE HCL 20 MG CAP PO SCH (07:44)
[2016-08-31] MEDS ORDERED: PNEUMOCOCCAL ADMINISTRATION CHARGE ONE (08:00)
[2016-08-31] MEDS ORDERED: PNEUMOCOCCAL POLYSACCHARIDES 25 MCG/0.5 ML VIAL/SYR IM. ONE (08:00)
[2016-08-31] MEDS: ALBUT/IPRATROP 3MG/0.5MG NEB 3 ML VIAL INH SCH ×4 (08:22→19:15)
[2016-08-31 10:43] LABS: INFLUENZA A PCR Neg for Influ A (NEG); INFLUENZA B PCR Neg for Influ B (NEG)
--- NOTE | 2016-08-31 11:50 | PULMONARY CONSULTATION ---
DATE OF CONSULTATION: 08/31/2016 HISTORY OF PRESENT ILLNESS: The patient is an 81-year-old female who was admitted to the hospital with shortness of breath and nonproductive cough since about 21 of August. Cami Valdez PA-C, has asked me to evaluate the patient from a pulmonary standpoint, who saw probably this morning. The patient is comfortable at the present time on oxygen and respiratory rate of 18. She states she has been having a bit of a cough since about the 06 of August. It is nonproductive. She denies fevers or night sweats or any rigors or chills. She states she has some shortness of breath and profound fatigue to the point that she has difficulty with even getting out of her house because of the fatigue. She was seen as an outpatient and attempted a 6-minute walk test was done because of the fatigue, she was unable to do that. Oxygen saturation was running about 88%. She then presented to the Emergency Room, seen by Dr. Josué Tello with worsening shortness of breath. Oxygen saturation was 84% on room air, pulse was in the 100s. She was complaining of a cough which was nonproductive. Examination in the Emergency Room revealed decreased breath sounds bilaterally, some wheezing, crackles on the right side. CT of the chest revealed some volume loss in the right hemithorax with some right-sided pleural thickening and significant interstitial opacities in the left lung as well. She has been placed on IV antimicrobial agents including Levaquin and Zosyn and states she does feel a little bit better today. She recently saw the oncologist at [facility] in [place]. 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 Apparently, oncologist is going to talk with the patient's family and the patient regarding possible further treatment versus no treatment. She carries a history of mesothelioma diagnosed in September of 2015. She underwent a VATS procedure at that time by Dr. Fortune. She has been treated with chemotherapy with cisplatin and probably Alimta and had been seen by Dr. Elizabeth in the past who gets most of her care at [facility]. She also states she received about 25 radiation treatments to the right hemithorax and all that stopped last year. She has been fairly active at home according to the patient until she developed this weakness and cough which is nonproductive about the 06 of August. No one in her family has been ill. Her travel history other than going to [place] has been unremarkable. She has no pets at home that have been ill. PAST MEDICAL HISTORY: Significant for mesothelioma, back surgery, hysterectomy, total knee arthroplasty, hypertension, anxiety and possible COPD. ALLERGIES: None. SOCIAL HISTORY: Unremarkable. From an occupational standpoint, she has not had any industrial exposures. FAMILY HISTORY: Significant for colon cancer and cancer of the ovaries, diabetes, heart disease, gallbladder disease, and hypertension. She is up to date with immunizations, although she may not have had a tetanus vaccine. Again, she has no allergies. MEDICATIONS: Noted. PHYSICAL EXAMINATION: VITAL SIGNS: She states her blood pressure has been under good control. There is no history of any coronary disease or angina. Her vital signs are stable and she is afebrile. Temperature was 36.9 at the time of admission, her pulse is 115 and is down to 80 now, respiratory rate of 18, blood pressure 138/79, oxygen saturation 93% on 4 liters. HEENT: TMs are unremarkable on exam. Nose exam unremarkable. Posterior pharynx normal with no thrush noted. NECK: No adenopathy is palpable anywhere. She is a bit weak, had difficulty with sitting up because of the weakness, but very pleasant as usual. No nodes are palpable in the supraclavicular, axillary or inguinal area. CHEST: Shows good expansion of the thorax with deep inspiration. No fremitus is noted. SKIN: Unremarkable. HEART: Regular rate and rhythm. No murmurs are heard. LUNGS: Reveal bronchial breath sounds at the right base. Left lung reveals few crackles at the left mid lung field just inferior to the left scapula. No dullness to percussion is noted. ABDOMEN: Soft and nontender. No organomegaly noted. EXTREMITIES: She has no cyanosis, clubbing or edema. She has a tattoo on her left ankle of several dolphins. DATA: The electrocardiogram reveals sinus tachycardia with poor R-wave progression across the precordium consistent with age undetermined anterior infarction, compared to previous EKG of 08/03/2016, no change is noted. LABORATORY DATA: White count is elevated at 12,000, hemoglobin and hematocrit 11.7 and 34.8% with platelet count 178,000; differential included 83.6% neutrophils and 7.1% lymphocytes. Chemistry profile was unremarkable. Glucose of 114. Liver function studies normal. Alkaline phosphatase slightly elevated at 144, troponins unremarkable. INR is 1.2. Influenza A and B, PCR pending. Blood cultures are pending. Chest x-ray revealed some consolidative changes at the right base. Volume loss of the right hemithorax, thickening of the right pleura and opacities in the left mid lung field as well. CT of the chest reveals extensive left lung infiltrates, mostly multifocal ground-glass infiltrates with change consistent with some bronchiectasis and pulmonary consolidation in the right lower lobe as well. She has a cyst in the liver, appears to be in the left hepatic lobe as well. Extensive air bronchograms are noted in the right lung with some very minimal thickening of the pleura, perhaps a very small right-sided pleural effusion. Bit of right-sided volume loss is noted as well with slight shift of the mediastinum. The nodular densities in the left lung seemed to be having more of a peripheral distribution as well. IMPRESSION: 1. Bilateral pneumonia. She has bronchial breath sounds at the left base consistent with atelectasis at the right base as well. This would explain the cough, weakness and hypoxemia and elevated white count. Community-acquired pneumonia needs to be considered. 2. Mesothelioma of the right hemithorax, status post VATS procedure September of 2015 with possible involvement of the omentum. She has received chemotherapy and radiation through [facility] in [place]. 3. History of chronic obstructive pulmonary disease, although she states she has never been a tobacco user. 4. Hypertension, under good control. 5. Very mild anemia. RECOMMENDATIONS: 1. Continue with her present medications including Levaquin and Zosyn. She is not producing any significant sputum, so I think the sputum Gram stain, [employer] LICENSE[employer] be difficult to obtain. 2. Follow blood pressure carefully on the Cozaar. 3. SCDs and Lovenox. I spoke with the patient about being up and out of bed as much as possible and she understands. 4. Sent the records from [facility] from her last visit regarding possible involvement of the omentum with mesothelioma. 5. High flow O2. Keep saturation above 90%. At this point, I do not think she needs any inhalers which she could use the DuoNeb 4 times a day as needed. Certainly, Lovenox prophylactic doses and SCDs would be helpful since she has had significant risk for developing DVT. There is no clinical evidence of DVT at this point. Thanks for asking me to evaluate Ms Jacobsen and I would be glad to following her during her hospital stay.
[2016-08-31] MEDS ORDERED: ZOLPIDEM TARTRATE 5 MG TAB PO PRN (12:15)
--- NOTE | 2016-08-31 13:15 | Hospitalist Progress Note ---
Hospitalist Progress Note Date of Service Aug 31, 2016. (Cami Valdez PA-C) Subjective Patient is still complaining of sever weakness. She has difficulty even moving around in bed. Also feeling significantly short of breath. "Can't breathe." Complaining of a dry cough. No fever or chills. No nausea, abdominal pain, chest pain or heart palpitations. Additional Comments: 6 system review negative. Please see pertinent positives in the history of present illness section. (Cami Valdez PA-C) Objective Vital Signs Date Time Temp Pulse Resp B/P Pulse Ox O2 Delivery O2 Flow Rate FiO2 08/31/16 11:29 36.7 80 20 139/67 91 Nasal Cannula 4.0 08/31/16 08:22 84 18 93 Nasal Cannula 4.0 08/31/16 08:00 Nasal Cannula 4.0 08/31/16 07:33 37.0 82 20 138/79 93 Nasal Cannula 4.0 08/31/16 04:00 94 Nasal Cannula 2.0 08/31/16 03:55 37.1 82 18 139/78 91 Nasal Cannula 2.0 08/31/16 01:23 36.8 94 20 143/85 94 Nasal Cannula 2.0 08/31/16 00:12 91 18 153/80 95 08/30/16 22:45 100 20 163/69 95 Nasal Cannula 2.0 08/30/16 21:12 106 20 97 Nasal Cannula 2.0 08/30/16 21:04 96 Nasal Cannula 2.0 08/30/16 21:04 96 Nasal Cannula 2.0 08/30/16 20:57 96 2.0 08/30/16 20:51 104 08/30/16 20:38 36.9 115 20 134/76 84 Room Air (Cami Valdez PA-C) Physical Exam General Appearance: + mild distress (mild respiratory distress) Neck: no JVD Respiratory/Chest: + pertinent finding (crackles significantly at the right base. Also mildly on the left base. No significant wheezing. Positive tachypnea. Saturating 93% on 4 L of oxygen per nasal cannula.) Cardiovascular: regular rate, rhythm Abdomen: normal bowel sounds, non tender, soft Extremities: non-tender, no pedal edema Neurologic/Psychiatric: no motor/sensory deficits, oriented x 3 Skin: warm/dry (Cami Valdez PA-C) Laboratory Results Last 24 Hours Test 08/30/16 20:35 08/30/16 22:58 08/31/16 06:30 White Blood Count 12.01 K/uL Red Blood Count 3.89 M/uL Hemoglobin 11.7 g/dL Hematocrit 34.8 % Mean Corpuscular Volume 89.5 fL Mean Corpuscular Hemoglobin 30.1 pg Mean Corpuscular Hemoglobin Concent 33.6 g/dl Platelet Count 178 K/uL Mean Platelet Volume 9.3 fL Neutrophils (%) (Auto) 83.6 % Lymphocytes (%) (Auto) 7.1 % Monocytes (%) (Auto) 6.4 % Eosinophils (%) (Auto) 1.9 % Basophils (%) (Auto) 0.2 % Neutrophils # (Auto) 10.03 K/uL Lymphocytes # (Auto) 0.85 K/uL Monocytes # (Auto) 0.77 K/uL Eosinophils # (Auto) 0.23 K/uL Basophils # (Auto) 0.03 K/uL RDW Standard Deviation 46.0 fL RDW Coefficient of Variation 14.1 % Immature Granulocyte % (Auto) 0.8 % Immature Granulocyte # (Auto) 0.10 K/uL Prothrombin Time 12.7 SECONDS Prothromb Time International Ratio 1.2 Activated Partial Thromboplast Time 27.1 SECONDS Partial Thromboplastin Ratio 1.0 Sodium Level 137 mmol/L Potassium Level 4.3 mmol/L Chloride Level 102 mmol/L Carbon Dioxide Level 24 mmol/L Anion Gap 11.0 mmol/L Blood Urea Nitrogen 18 mg/dl Creatinine 0.94 mg/dl Est Creatinine Clear Calc Drug Dose 46.2 ml/min Estimated GFR () 66.4 Estimated GFR (Non- 57.3 BUN/Creatinine Ratio 19.6 Random Glucose 114 mg/dl Calcium Level 9.5 mg/dl Total Bilirubin 0.7 mg/dl Aspartate Amino Transf (AST/SGOT) 33 U/L Alanine Aminotransferase (ALT/SGPT) 25 U/L Alkaline Phosphatase 144 U/L Troponin I < 0.015 ng/ml Pro-B-Type Natriuretic Peptide 508 pg/ml Total Protein 7.7 gm/dl Albumin 2.5 gm/dl Globulin 5.2 gm/dl Albumin/Globulin Ratio 0.5 Lactic Acid Level 1.1 mmol/L Influenza Type A (RT-PCR) Neg for Influ A Influenza Type B (RT-PCR) Neg for Influ B (Cami Valdez, PA-C) Assessment and Plan 81-year-old female presents the emergency department with severe dyspnea on exertion, progressive weakness-acute respiratory failure with hypoxia. + SIRS secondary to severe RLL PNA Acute respiratory Failure with hypoxia secondary to severe RLL PNA and underlying mesothelioma -Continue broad spectrum coverage: zosyn, levaquin -Scheduled DuoNeb Xopenex/ipratropium QID scheduled prn q 2 hr -sputum cx/blood cx pending -check MRSA swab -Pulm consult -Onc consult-(typically follows at [facility] in [place]) Wants to follow with Onc locally -f/u Flu Weakness-likely secondary to hypoxia -pt will need O2 at home -will need 2 step when close to d/c HTN-BP controlled -Cozaar 100 mg daily -Hydralazine 10 mg IV q 6 hr PRN Depression-depressed affect noted -Effexor ER 37.5 mg daily -Prozac 20 mg daily Glaucoma -Cosopt gtt DVT prophylaxis -Lovenox 40 mg subQ daily -TEDS, SCDs CODE STATUS -LEVEL I FULL CODE (Cami Valdez PA-C) PA Physician Supervision Note: I interviewed and examined the patient. Discussed with Cami Valdez PAC and agree with findings and plan as documented in the note. Any exceptions or clarifications are listed here: None PT improved with antibiotic use but significant oxygen requirement, daughters at bedside, still with high oxygen need lungs couarse rhonchi b/l R>L abd soft nt B/L pneumonia mostly on right, concern for gram negative, treat with levaquin and zosyn, augment oxygen and pulmonary med to follow Documented By: Kian Gale (Kian Gale M.D.)
--- NOTE | 2016-08-31 15:03 | Oncology Consultation ---
Oncology/Heme Consultation Date of Consultation: Aug 31, 2016. Attending Physician: Rich Kerr M.D. Reason for Consultation: History of mesothelioma History of Present Illness Ms. 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 She is received the bulk of her oncologic care at [facility]. She states that she receive 5 or 6 treatments of chemotherapy followed by radiation therapy and that was all completed in April or early May of last year. She is now minute with worsening performance status and shortness of breath. She reviews with me that with her last CT image at [facility] that there was a comment about may be her stomach being involved. She gives really no symptoms related to stomach problems. She has been losing weight she states for the past 2 months she's lost about 15 pounds. She denies nausea or vomiting or change in bowel habits or any abdominal pain. Fortunately pain recently has not been a very major issue. She denies fever or shaking chills. She denies a productive cough. Past Medical/Surgical History Medical Problems: (1) Dehydration Status: Acute (2) Hypoxia Status: Acute (3) Hypoxia Status: Acute (4) Pneumonia Status: Acute (5) Pneumonitis Status: Acute (6) UTI (urinary tract infection) Status: Acute Family History Cancer Diabetes mellitus FH: lung disease Gallbladder disease Heart disease Hypertension Social History Smoking Status: Never Smoker Drug Use: none Marital Status: Housing Status: lives with family Occupation Status: unemployed, other Allergies Coded Allergies: No Known Allergies (Verified , 08/30/16) Home Medications Scheduled Cholecalciferol (Vitamin D3), 2,000 UNIT PO QAM Dexlansoprazole (Dexilant), 60 MG PO DAILYBB Dorzolamide Hcl-Timolol Maleat (Cosopt Oph), 1 DROP OPR BID Fluoxetine Hcl (Fluoxetine Hcl), UD Losartan Potassium (Cozaar), 100 MG PO QAM Magnesium (Magnesium), 250 MG PO QPM Venlafaxine Hcl (Venlafaxine Extended Rel), 37.5 MG PO UD Current Inpatient Medications Current Inpatient Medications Medications (Trade) Dose Ordered Sig/Carol Route Start Time Stop Time Status Last Admin Dose Admin Ioversol (Optiray 320) 100 ml UD PRN IV 08/30/16 22:00 09/03/16 21:59 Acetaminophen (Tylenol Tab) 650 mg Q4H PRN PO 08/30/16 23:30 09/29/16 23:29 Al Hydrox/Mg Hydrox/Simethicone (Maalox Max Susp) 15 ml Q4H PRN PO 08/30/16 23:30 09/29/16 23:29 Magnesium Hydroxide (Milk Of Magnesia Susp) 30 ml Q12H PRN PO 08/30/16 23:30 09/29/16 23:29 Ondansetron HCl (Zofran Inj) 4 mg Q6H PRN IV 08/30/16 23:30 09/29/16 23:29 Piperacillin Sod/ Tazobactam Sod (Consult) 1 ea UD PRN N/A 08/31/16 01:15 09/30/16 01:14 Levofloxacin 1 ea 1 ea UD PRN N/A 08/31/16 01:15 09/30/16 01:14 Piperacillin Sod/ Tazobactam Sod 3.375 gm/Dextrose 115 ml @ 28.75 mls/ hr Q8H IV 08/31/16 04:00 09/07/16 03:59 08/31/16 11:22 28.75 MLS/HR Levofloxacin/Prmx (Levaquin / D5W/ Premixed D5W) 150 ml @ 100 mls/hr Q48H IV 09/02/16 02:00 09/07/16 02:30 Dorzolamide/ Timolol (Cosopt Op Soln) 1 drops BID OPR 08/31/16 09:00 09/30/16 08:59 08/31/16 07:43 1 DROPS Losartan Potassium (coZAAR TAB) 100 mg QAM PO 08/31/16 09:00 09/30/16 08:59 08/31/16 07:42 100 MG Cholecalciferol (Vitamin D Tab) 2,000 inter.unit QAM PO 08/31/16 09:00 09/30/16 08:59 08/31/16 07:42 2,000 INTER.UNIT Pantoprazole Sodium (Protonix Tab) 40 mg DAILYBB PO 08/31/16 06:00 09/30/16 05:59 08/31/16 06:18 40 MG Magnesium Oxide (Mag-Ox Tab) 400 mg QPM PO 08/31/16 21:00 09/30/16 20:59 Fluoxetine HCl (Prozac Cap) 20 mg QAM PO 08/31/16 09:00 09/30/16 08:59 08/31/16 07:44 20 MG Albuterol/ Ipratropium (Duoneb) 3 ml QIDR INH 08/31/16 08:00 09/30/16 07:59 08/31/16 08:22 3 ML Enoxaparin Sodium (Lovenox Inj) 40 mg QAM SQ 08/31/16 09:00 09/30/16 08:59 08/31/16 07:44 40 MG Venlafaxine HCl (effeXOR EXTENDED REL CAP) 37.5 mg Q3D@2100 PO 08/31/16 21:00 09/30/16 20:59 Zolpidem Tartrate (Ambien Tab) 5 mg HS PRN PO 08/31/16 12:15 09/30/16 12:14 Review of Systems Constitutional: Negative for night sweats, or fever, she has had about a 15 pound weight loss in the past 2 months. Eyes: Negative for event change of vision ENT: Negative for epistaxis, nasal discharge, sore throat, or deafness Cardiovascular: Negative for chest pain, palpitations, dizziness, diaphoresis Respiratory: Negative for new shortness of breath, although from what I can gather she is chronically short of breath, she did denies hemoptysis, or purulent cough Gastrointestinal: Negative for diarrhea, hematemesis, melena, nausea, vomiting , or dyspepsia Integumentary (skin): Negative for rash or jaundice discoloration Genitourinary: Negative for urinary frequency, hematuria, or dysuria Neurological: Negative for weakness, seizure activity, headache, or dizziness Lymphatic/Hematologic: Negative for petechiae, bleeding or new adenopathy Musculoskeletal: Negative for new joint or back pain Allergic/Immunologic: Negative for unusual rash or pruritis. Physical Exam Date Time Temp Pulse Resp B/P Pulse Ox O2 Delivery O2 Flow Rate FiO2 08/31/16 11:29 36.7 80 20 139/67 91 Nasal Cannula 4.0 08/31/16 08:22 84 18 93 Nasal Cannula 4.0 08/31/16 08:00 Nasal Cannula 4.0 08/31/16 07:33 37.0 82 20 138/79 93 Nasal Cannula 4.0 08/31/16 04:00 94 Nasal Cannula 2.0 08/31/16 03:55 37.1 82 18 139/78 91 Nasal Cannula 2.0 08/31/16 01:23 36.8 94 20 143/85 94 Nasal Cannula 2.0 08/31/16 00:12 91 18 153/80 95 08/30/16 22:45 100 20 163/69 95 Nasal Cannula 2.0 08/30/16 21:12 106 20 97 Nasal Cannula 2.0 08/30/16 21:04 96 Nasal Cannula 2.0 08/30/16 21:04 96 Nasal Cannula 2.0 08/30/16 20:57 96 2.0 08/30/16 20:51 104 08/30/16 20:38 36.9 115 20 134/76 84 Room Air Constitutional: vitals are stable. Eyes: Eyes are VIOLA EOMI without conjuctival erythema or icterus. ENT: External examination was negative for masses. Neck: Negative for masses or palpable thyromegaly Respiratory: Lung sounds were generally clear but decreased bilaterally Cardiovascular: Heart was RRR without significant murmur, gallops aoe rubs Gastrointestinal: No palpable hepatic or splenomegaly. The abdomen was soft with normal bowel sounds. Lymphatic system: there was no palpable peripheral lymphadenopathy Musculoskeletal System: The musculoskeletal system seemed concordant with age. Skin: The skin was negative for jaundice. Neurologic exam: The exam was negative for any focal findings. Deep tendon reflexes were equal and symmetrical. Psychiatric exam: Was essentially negative with normal mood and effect. Breast exam: Was not done Extremities: Negative for edema or erythema Laboratory Results Last 24 Hours Test 08/30/16 20:35 08/30/16 22:58 08/31/16 06:30 White Blood Count 12.01 K/uL Red Blood Count 3.89 M/uL Hemoglobin 11.7 g/dL Hematocrit 34.8 % Mean Corpuscular Volume 89.5 fL Mean Corpuscular Hemoglobin 30.1 pg Mean Corpuscular Hemoglobin Concent 33.6 g/dl Platelet Count 178 K/uL Mean Platelet Volume 9.3 fL Neutrophils (%) (Auto) 83.6 % Lymphocytes (%) (Auto) 7.1 % Monocytes (%) (Auto) 6.4 % Eosinophils (%) (Auto) 1.9 % Basophils (%) (Auto) 0.2 % Neutrophils # (Auto) 10.03 K/uL Lymphocytes # (Auto) 0.85 K/uL Monocytes # (Auto) 0.77 K/uL Eosinophils # (Auto) 0.23 K/uL Basophils # (Auto) 0.03 K/uL RDW Standard Deviation 46.0 fL RDW Coefficient of Variation 14.1 % Immature Granulocyte % (Auto) 0.8 % Immature Granulocyte # (Auto) 0.10 K/uL Prothrombin Time 12.7 SECONDS Prothromb Time International Ratio 1.2 Activated Partial Thromboplast Time 27.1 SECONDS Partial Thromboplastin Ratio 1.0 Sodium Level 137 mmol/L Potassium Level 4.3 mmol/L Chloride Level 102 mmol/L Carbon Dioxide Level 24 mmol/L Anion Gap 11.0 mmol/L Blood Urea Nitrogen 18 mg/dl Creatinine 0.94 mg/dl Est Creatinine Clear Calc Drug Dose 46.2 ml/min Estimated GFR () 66.4 Estimated GFR (Non- 57.3 BUN/Creatinine Ratio 19.6 Random Glucose 114 mg/dl Calcium Level 9.5 mg/dl Total Bilirubin 0.7 mg/dl Aspartate Amino Transf (AST/SGOT) 33 U/L Alanine Aminotransferase (ALT/SGPT) 25 U/L Alkaline Phosphatase 144 U/L Troponin I < 0.015 ng/ml Pro-B-Type Natriuretic Peptide 508 pg/ml Total Protein 7.7 gm/dl Albumin 2.5 gm/dl Globulin 5.2 gm/dl Albumin/Globulin Ratio 0.5 Lactic Acid Level 1.1 mmol/L Influenza Type A (RT-PCR) Neg for Influ A Influenza Type B (RT-PCR) Neg for Influ B Assessment & Plan History of mesothelioma status post chemoradiotherapy. Scans will be reviewed. Treatment for possible underlying pneumonia is ongoing. We will need to obtain records we can from [facility]. I have given the patient a contact number for this clinic and we will see that she has a follow-up in our clinic.. She would prefer to receive her get further therapy for her cancer locally.
[2016-08-31] MEDS: MAGNESIUM OXIDE 400 MG TAB PO SCH (20:28)
[2016-08-31] MEDS: VENLAFAXINE HCL XR 37.5 MG CAPXR PO SCH (20:29)
[2016-09-01] VITALS (23 sets, daily range): BP systolic 104–146; BP diastolic 48–82; PULSE 54–94; TEMP 36.4–37.3; O2SAT 84–99
--- NOTE | 2016-09-01 01:13 | Progress Note ---
Progress Note acute hypoxia and SOB repeat cxr suspicious for congestion, lasix 40 mg IV troponin, BNP, echo, CXR in am
[2016-09-01] MEDS ORDERED: FUROSEMIDE INJ 40 MG in SYRINGE 0 ML IV STA (01:21)
[2016-09-01] MEDS: ALBUT/IPRATROP 3MG/0.5MG NEB 3 ML VIAL INH SCH ×6 (01:48→23:22)
[2016-09-01] MEDS: PIPERACILL/TAZOBAC IV 3.375 GM in DEXTROSE 5% 100ML IV SCH (04:16)
[2016-09-01] MEDS: PANTOprazole SOD 40 MG TAB PO SCH (06:26)
[2016-09-01] MEDS ORDERED: VANCOMYCIN INJ 1,000 MG in SODIUM CHLORIDE 0.9% 250ML 250 ML IV STA (06:47)
--- NOTE | 2016-09-01 06:53 | DIAGNOSTIC IMAGING REPORT ---
CHEST ONE VIEW PORTABLE CLINICAL HISTORY: Desaturation hypoxia COMPARISON STUDY: 08/31/2016 FINDINGS: Unchanged study radiographically. Persistent parenchymal infiltrative change and pleural thickening right and to a somewhat lesser extent left hemithorax. Chronic elevation right hemidiaphragm. Persistent mid mediastinal fullness. IMPRESSION: No change compared to the prior study.. Electronically signed by: Michael Shell M.D. 09/01/2016 6:52 AM Dictated Date/Time: 09/01/2016 6:51 AM
[2016-09-01] MEDS ORDERED: SODIUM CHLORIDE 0.9% IV SCH (07:00)
[2016-09-01] MEDS ORDERED: VORICONAZOLE IV SCH (07:00)
[2016-09-01] MEDS ORDERED: VANCOMYCIN CONSULT ACTIVE PRN (07:15)
[2016-09-01 07:17] LABS: HEMATOCRIT 29.8 % (37-47); MEAN CELL VOLUME 89.5 fL (80-100); MEAN CORPUSCULAR HGB CONC 33.6 g/dl (32-36); MEAN PLATELET VOLUME 9.2 fL (7.4-10.4); PLATELET COUNT 125 K/uL (130-400); RED BLOOD COUNT 3.33 M/uL (4.2-5.4); WHITE BLOOD COUNT 12.72 K/uL (4.8-10.8)
[2016-09-01] MEDS ORDERED: METHYLPREDNISOLONE IV 125 MG in SYRINGE 0 ML IV ONE (07:30)
--- NOTE | 2016-09-01 07:39 | PULMONARY PROGRESS NOTE ---
DATE: 09/01/2016 The patient has deteriorated throughout the night. She developed hypoxemia with tachypnea, respiratory rate of 34, treated with Lasix with fairly good diuresis with an output of about 1550 mL. Respiratory rate has come down into the 20's. Chest x-ray shows bilateral infiltrates which are considerably worse with probable fluid on the right side and interstitial infiltrate in the entire left lung consistent with pneumonia. CBC is pending. She denies cough, just states she is weak. I did speak with her daughter extensively today. Apparently, the patient had a CAT scan done about the 21 of August at [facility] and was told that her chest looked good with minimal abnormalities at the right base with involvement of the mesothelioma probably in the mesentery. It has not been biopsied and not confirmed. Over the last 3 weeks she has had worsening shortness of breath associated with nonproductive cough. She had been placed on Levaquin and Zosyn. Presently she has a respiratory rate of 28 with no paradoxical respiratory motion. She is lying at about 40 degrees, states she is comfortable but weak. Oxygen saturation is 92% on 100% FIO2 and that is considerably worse. She was 95% on 6 liters at 8:00 p.m. last night. PHYSICAL EXAMINATION: VITAL SIGNS: Weight is 85.1 kilograms and was 85 kilograms at the time of admission. HEENT: Unremarkable. No thrush noted. No subcutaneous emphysema noted. No adenopathy is noted. HEART: Regular rate and rhythm. Heart sounds are distant. I do not detect any murmurs or rubs. LUNGS: Reveal coarse breath sounds bilaterally. Few crackles at the right base. There is no fremitus. I do not really detect any rales. ABDOMEN: Soft, nontender. It is just slightly distended. EXTREMITIES: Reveal no cyanosis, clubbing or edema and there is no clinical evidence of DVT. CBC and PRP are pending. Influenza PCR for A and B is negative. Coagulation profile was unremarkable. Blood cultures are pending. MRSA DNA surveillance screen was negative. Chest x-ray is noted as above. The report from the radiologist is pending. IMPRESSION: 1. Bilateral pneumonia. I suspect she probably has pneumonia in the right lower lobe along the area where she had the VATS procedure and also extensive pneumonitis in the left lung. She has had a good diuresis. The chest x-ray certainly could be consistent with pulmonary edema with an elevated white count and her weakness, no cardiac disease and an EKG that showed no acute changes. Still concerned about an infectious process. 2. Mesothelioma of the right pleural space with possible involvement now of the omentum or abdominal organs, status post chemotherapy and radiation therapy through [facility]. RECOMMENDATIONS: 1. Check blood gas. 2. Recommend an echocardiogram, BNP. Continue with diuresis. 3. Check magnesium and phosphorus. 4. High flow O2. Continue with her present antimicrobial agents. I would add on vancomycin as well just to cover the remote possibility of staph even though the MRSA surveillance screen is negative. 5. Transfer the patient to the intensive care unit. I spoke with the patient regarding that and she agreed. I spoke with her daughter and she agreed. Apparently she will be transferred down to room 110. If she would continue to be tachypneic or the blood gas shows an acidosis then endotracheal intubation would be warranted. After that bronchoscopy could be done to assess right lower lobe; obtain cultures if needed. She can be followed carefully in the ICU by the rail car loader.
[2016-09-01] MEDS ORDERED: [UNRECOGNIZED DRUG - REMARK] PRN (07:45)
[2016-09-01 07:46] LABS: CALCIUM 8.9 mg/dl (8.5-10.1); CREATININE 0.94 mg/dl (0.60-1.20); MAGNESIUM 1.5 mg/dl (1.8-2.4); POTASSIUM 3.2 mmol/L (3.5-5.1)
[2016-09-01 07:49] LABS: BASO % 0.2 %; BASO ABS # 0.03 K/uL (0-0.2); COMPLETE YES; IG% 0.6 %; LYMPH % 7.5 %; LYMPH ABS # 0.96 K/uL (1.2-3.4); MONO % 7.4 %; NEUT % 82.3 %; POLYCHROMASIA 1+
[2016-09-01 07:50] LABS: ISTAT ARTERIAL BLOOD GAS HCO3 26 meq/L (19-24); ISTAT ARTERIAL BLOOD GAS PCO2 38 mmHg (35-46); ISTAT ARTERIAL BLOOD GAS PO2 46 mmHg (80-95); ISTAT ARTERIAL BLOOD GAS pH 7.43 (7.35-7.45); ISTAT CARBON DIOXIDE 27 mEq/l (24-31); ISTAT HEMATOCRIT 29 % (37-47); ISTAT HEMOGLOBIN 9.9 g/dl (12.0-16.0); ISTAT SODIUM 132 mEq/L (135-144)
[2016-09-01] MEDS ORDERED: VANCOMYCIN INJ 2,100 MG in SODIUM CHLORIDE 0.9% 500ML 500 ML IV ONE (08:00)
--- NOTE | 2016-09-01 08:00 | Clinical Documentation Query ---
VERONA Finney : CLINICAL DOCUMENTATION QUERY Patient is an 81 year old female admitted with bilateral right > left pneumonia with concern for gram negative organisms. Early this a.m. (09/01), hospitalist notified of increasing oxygen requirements and labored, shallow breathing. Ascending crackles noted per nursing staff. Portable chest radiograph per nocturnal physician "suspicious for congestion". Patient was administered Lasix IV and diuresed > 1 liter. Echocardiogram is pending. Patient subsequently transferred to ICU, seen in consultation by pulmonary medicine, and was ordered Bi-PAP therapy. In your clinical opinion is this patient being managed for: ( ) Acute pulmonary edema ( ) Other explanation of clinical findings (Please Explain) ( xx ) Unable to determine (Please Define) this maybe ards or radiation pneumonitis ( ) Need to Discuss ( ) Not Agree The medical record reflects the following clinical findings, treatment, and risk factors. Clinical Indicators: As above Treatment: Patient was administered Lasix IV and diuresed > 1 liter. Echocardiogram is pending. Patient subsequently transferred to ICU, seen in consultation by pulmonary medicine, and was ordered Bi-PAP therapy. Risk Factors: Age, IVF adminstration, infection, underlying pulmonary disease. Please clarify and document your clinical opinion in the progress notes and discharge summary. Terms such as "probable", "suspected", "likely", "questionable", "possible", or "still to be ruled out" are acceptable. IF IN AGREEMENT, YOU MUST DOCUMENT ABOVE DIAGNOSTIC STATEMENT IN DAILY PROGRESS NOTES AND DISCHARGE SUMMARY. This document is not part of the patient's record. Thank You, Alfonso West, RN [phone]
--- NOTE | 2016-09-01 08:09 | Clinical Documentation Query ---
KIN Aquino : CLINICAL DOCUMENTATION QUERY Patient is an 81 year old female admitted with bilateral right > left pneumonia with concern for gram negative organisms. Early this a.m. (09/01), hospitalist notified of increasing oxygen requirements and labored, shallow breathing. Ascending crackles noted per nursing staff. Portable chest radiograph per nocturnal physician "suspicious for congestion". Progress note stated "The chest x-ray certainly could be consistent with pulmonary edema". Patient was administered Lasix IV and diuresed > 1 liter. Echocardiogram is pending. Patient subsequently transferred to ICU, seen in consultation by pulmonary medicine, and was ordered Bi-PAP therapy. In your clinical opinion is this patient being managed for: ( ) Acute pulmonary edema ( ) Other explanation of clinical findings (Please Explain) ( ) Unable to determine (Please Define) ( ) Need to Discuss ( ) Not Agree The medical record reflects the following clinical findings, treatment, and risk factors. Clinical Indicators: As above Treatment: Patient was administered Lasix IV and diuresed > 1 liter. Echocardiogram is pending. Patient subsequently transferred to ICU, seen in consultation by pulmonary medicine, and was ordered Bi-PAP therapy. Risk Factors: Age, IVF adminstration, infection, underlying pulmonary disease. Please clarify and document your clinical opinion in the progress notes and discharge summary. Terms such as "probable", "suspected", "likely", "questionable", "possible", or "still to be ruled out" are acceptable. IF IN AGREEMENT, YOU MUST DOCUMENT ABOVE DIAGNOSTIC STATEMENT IN DAILY PROGRESS NOTES AND DISCHARGE SUMMARY. This document is not part of the patient's record. Thank You, Alfonso West, MYRNA [phone]
[2016-09-01 08:14] LABS: IMMUNOGLOBULN M 21.7 mg/dL (40-230)
[2016-09-01] MEDS ORDERED: MAGNESIUM SULFATE 1GM / D5W 1 GM in PREMIXED IN D5W 100 ML IV ONE (08:45)
[2016-09-01] MEDS ORDERED: ENOXAPARIN 40 MG/0.4 ML SYR SQ SCH (09:00)
[2016-09-01] MEDS ORDERED: VENLAFAXINE HCL XR 37.5 MG CAPXR PO SCH (09:00)
--- NOTE | 2016-09-01 09:06 | DIAGNOSTIC IMAGING REPORT ---
CHEST ONE VIEW PORTABLE CLINICAL HISTORY: sob dyspnea COMPARISON STUDY: 09/01/2016 1:14 AM FINDINGS: Diffuse bilateral parenchymal fibrotic change. Superimposed component of congestive failure. Pleural thickening lateral right hemithorax stable. Chronic elevation right hemithorax diaphragm. IMPRESSION: Congestive failure with superimposed infiltrative change right hemithorax. No major change radiographically from the prior day. Electronically signed by: Michael Shell M.D. 09/01/2016 9:05 AM Dictated Date/Time: 09/01/2016 9:03 AM
[2016-09-01] MEDS: POTASSIUM CHLR 10 MEQ / WTR 10 MEQ in PREMIXED WATER 100 ML IV SCH ×3 (09:09→12:53)
[2016-09-01] MEDS: FLUOXETINE HCL 20 MG CAP PO SCH (09:10)
[2016-09-01] MEDS: DORZOLAMIDE/TIMOLOL 22.3/6.8MG/ML 10 ML BTL OPR SCH ×2 (09:10→20:17)
[2016-09-01] MEDS: LOSARTAN POTASSIUM 50 MG TAB PO SCH (09:10)
[2016-09-01] MEDS: ENOXAPARIN 40 MG/0.4 ML SYR SQ SCH (09:11)
[2016-09-01] MEDS: CHOLECALCIFEROL 1000 INTER.UNIT TAB PO SCH (09:11)
--- NOTE | 2016-09-01 09:13 | Hematology/Oncology Prog Note ---
Hematology/Onc Progress Note Date of Service Sep 01, 2016. Diagnoses Lalo mesothelioma Pneumonitis/ pneumonia/ Medications Medications Administered Medications (Trade) Dose Ordered Sig/Carol Route Start Time Stop Time Status Last Admin Dose Admin Levalbuterol (Xopenex 1.25MG/ 0.5ML Neb) 1.25 mg NOW STAT INH 08/30/16 20:56 08/30/16 21:01 DC 08/30/16 21:12 1.25 MG Ipratropium [place] 0.5 mg 0.5 mg NOW STAT INH 08/30/16 20:56 08/30/16 21:01 DC 08/30/16 21:12 0.5 MG Sodium Chloride (Nss 1000ml) 1,000 ml @ 200 mls/hr Q5H STAT IV 08/30/16 21:00 08/31/16 01:02 DC 08/30/16 21:00 200 MLS/HR Piperacillin Sod/ Tazobactam Sod 4.5 gm 4.5 gm NOW STAT IV 08/30/16 21:52 08/30/16 21:54 DC 08/30/16 22:23 4.5 GM Levofloxacin 750 mg/Prmx 150 ml @ 100 mls/hr DAILY@0100 IV 08/31/16 01:01 08/31/16 03:01 DC 08/31/16 02:00 100 MLS/HR Piperacillin Sod/ Tazobactam Sod/ Dextrose (Zosyn Iv/D5 100ml) 115 ml @ 28.75 mls/ hr Q8H IV 08/31/16 04:00 09/07/16 03:59 09/01/16 04:16 28.75 MLS/HR Dorzolamide/ Timolol (Cosopt Op Soln) 1 drops BID OPR 08/31/16 09:00 09/30/16 08:59 08/31/16 20:28 1 DROPS Losartan Potassium (coZAAR TAB) 100 mg QAM PO 08/31/16 09:00 09/30/16 08:59 08/31/16 07:42 100 MG Cholecalciferol (Vitamin D Tab) 2,000 inter.unit QAM PO 08/31/16 09:00 09/30/16 08:59 08/31/16 07:42 2,000 INTER.UNIT Pantoprazole Sodium (Protonix Tab) 40 mg DAILYBB PO 08/31/16 06:00 09/30/16 05:59 09/01/16 06:26 40 MG Magnesium Oxide (Mag-Ox Tab) 400 mg QPM PO 08/31/16 21:00 09/30/16 20:59 08/31/16 20:28 400 MG Fluoxetine HCl (Prozac Cap) 20 mg QAM PO 08/31/16 09:00 09/30/16 08:59 08/31/16 07:44 20 MG Albuterol/ Ipratropium (Duoneb) 3 ml QIDR INH 08/31/16 08:00 09/30/16 07:59 09/01/16 01:48 3 ML Enoxaparin Sodium (Lovenox Inj) 40 mg QAM SQ 08/31/16 09:00 09/30/16 08:59 08/31/16 07:44 40 MG Venlafaxine HCl 37.5 mg 37.5 mg Q3D@2100 PO 08/31/16 21:00 09/30/16 20:59 08/31/16 20:29 37.5 MG Furosemide 40 mg/ Syringe 4 ml @ 4 mls/min NOW STAT IV 09/01/16 01:21 09/01/16 01:22 DC 09/01/16 01:27 4 MLS/MIN Methylprednisolone Sodium Succinate/ Syringe (Solu-Medrol IV/ Syringe) 2 ml @ 1.5 mls/min TODAY@0730 ONCE IV 09/01/16 07:30 09/01/16 07:36 DC 09/01/16 07:03 1.5 MLS/MIN Subjective She became more short of breath during evening. She is now on ICU. She denies any pain. Family is at the bedside. She has remained afebrile Review of Systems: Constitutional: Negative for night sweats, or fever Eyes: Negative for event change of vision ENT: Negative for epistaxis, nasal discharge, sore throat, or deafness Cardiovascular: Negative for chest pain, palpitations, dizziness, diaphoresis Respiratory: Negative for new shortness of breath,hemoptysis, or purulent cough Gastrointestinal: Negative for diarrhea, hematemesis, melena, nausea, vomiting , or dyspepsia Integumentary (skin): Negative for rash or jaundice discoloration Genitourinary: Negative for urinary frequency, hematuria, or dysuria Neurological: Negative for weakness, seizure activity, headache, or dizziness Lymphatic/Hematologic: Negative for petechiae, bleeding or new adenopathy Musculoskeletal: Negative for new joint or back pain Allergic/Immunologic: Negative for unusual rash or pruritis. Vital Signs Vital Signs Past 12 Hours Date Time Temp Pulse Resp B/P Pulse Ox O2 Delivery O2 Flow Rate FiO2 09/01/16 07:19 37.3 86 34 92 15.0 09/01/16 04:00 92 Non-Rebreather 15.0 100 09/01/16 03:57 37.3 86 34 134/78 92 Non-Rebreather 15.0 09/01/16 01:00 88 24 97 Non-Rebreather 100 09/01/16 00:01 84 Nasal Cannula 6.0 Non-Rebreather 08/31/16 23:50 37.5 98 22 145/70 87 Nasal Cannula 6.0 Physical Exam Constitutional: vitals are stable. Eyes: Eyes are VIOLA EOMI without conjuctival erythema or icterus. ENT: External examination was negative for masses. Neck: Negative for masses or palpable thyromegaly Respiratory: Lung sounds were generally decreased bilaterally Cardiovascular: Heart was RRR without significant murmur, gallops aoe rubs Gastrointestinal: No palpable hepatic or splenomegaly. The abdomen was soft with normal bowel sounds. Lymphatic system: there was no palpable peripheral lymphadenopathy Musculoskeletal System: The musculoskeletal system seemed concordant with age. Skin: The skin was negative for jaundice. Neurologic exam: The exam was negative for any focal findings. Deep tendon reflexes were equal and symmetrical. Psychiatric exam: Was essentially negative with normal mood and effect. Breast exam: Not done Extremities: Negative for edema or erythema Laboratory Last 24 Hours Test 09/01/16 01:20 09/01/16 06:50 09/01/16 07:37 Troponin I < 0.015 ng/ml Pro-B-Type Natriuretic Peptide 434 pg/ml White Blood Count 12.72 K/uL Red Blood Count 3.33 M/uL Hemoglobin 10.0 g/dL Hematocrit 29.8 % Mean Corpuscular Volume 89.5 fL Mean Corpuscular Hemoglobin 30.0 pg Mean Corpuscular Hemoglobin Concent 33.6 g/dl Platelet Count 125 K/uL Mean Platelet Volume 9.2 fL Neutrophils (%) (Auto) 82.3 % Lymphocytes (%) (Auto) 7.5 % Monocytes (%) (Auto) 7.4 % Eosinophils (%) (Auto) 2.0 % Basophils (%) (Auto) 0.2 % Neutrophils # (Auto) 10.45 K/uL Lymphocytes # (Auto) 0.96 K/uL Monocytes # (Auto) 0.94 K/uL Eosinophils # (Auto) 0.26 K/uL Basophils # (Auto) 0.03 K/uL RDW Standard Deviation 46.3 fL RDW Coefficient of Variation 14.1 % Immature Granulocyte % (Auto) 0.6 % Immature Granulocyte # (Auto) 0.08 K/uL Polychromasia 1+ Sodium Level 136 mmol/L Potassium Level 3.2 mmol/L Chloride Level 98 mmol/L Carbon Dioxide Level 25 mmol/L Anion Gap 13.0 mmol/L Blood Urea Nitrogen 15 mg/dl Creatinine 0.94 mg/dl Est Creatinine Clear Calc Drug Dose 46.2 ml/min Estimated GFR () 66.4 Estimated GFR (Non- 57.3 BUN/Creatinine Ratio 16.0 Random Glucose 98 mg/dl Calcium Level 8.9 mg/dl Phosphorus Level 3.8 mg/dl Magnesium Level 1.5 mg/dl Immunoglobulin G 891.0 mg/dL Immunoglobulin A 276.0 mg/dL Immunoglobulin M 21.7 mg/dL Bedside Hemoglobin 9.9 g/dl Bedside Hematocrit 29 % Bedside Blood Gas pH (LAB) 7.43 Bedside Blood Gas pCO2 (LAB) 38 mmHg Bedside Blood Gas pO2 (LAB) 46 mmHg Bedside Blood Gas HCO3 (LAB) 26 meq/L Bedside Blood Gas Total CO2 27 mEq/l Bedside Blood Gas Base Excess (LAB) 1.0 meq/L Bedside Blood Gas O2 Saturation 83.0 % Bedside Sodium 132 mEq/L Bedside Potassium 3.2 mEq/L Assessment & Plan Reviewing the CT scan and with blood cultures being negative and remaining afebrile but worsening shortness of breath I have to wonder whether there is a significant element of underlying radiation pneumonitis. Bronchograms are seen fairly prominently throughout the affected right lung. With that then I would ask that steroids be given in fairly large doses perhaps 40-60 mg Solu-Medrol IV every 8 hours. I did review the x-rays with the family and explained the rationale for using steroids along with the antibiotics. The daughter help to gather the records we can from [facility]. She showed me a x-ray or CT report from June last on at [facility] a comments about some consolidative changes most likely radiation related in the right lung. It also comments about some omental thickening that is new compared to prior films with the concern that there may be mesothelioma affecting the abdomen. The rationale for using steroids was reviewed with Dr. Reardon as well as Dr. Gil. Appreciate everyone's help.
--- NOTE | 2016-09-01 10:19 | Progress Note ---
Progress Note ID Consult Dictated #[id number] A/P: 1. B/L infiltrates - PNA. ? component of mesothelioma, ? acute CHF as well 2. Leukocytosis -Continue abx for now, agree with addition of vanco -Blood cultures negative to date, continue to follow -If able, obtain sputum -May require broch -Continue supportive care -Will follow, thank you
--- NOTE | 2016-09-01 10:25 | Critical Care Consultation ---
Critical Care Consultation Date of Consultation: Sep 01, 2016. Attending Physician: Rich Kerr M.D. Reason for Consultation: Hypoxia, ICU admission History of Present Illness 81 yo female with significant PMHx of mesothelioma treated in [place] with chemotherapy and radiotherapy finished in Apr), Increasingly tired with a dry cough over a 3 week period with decreasing O2 saturations at home. Went to see PCP on Aug 30 and was prescribed home O2 but advised if getting worse to present to the ER. She presented later the same day with worsening shortness of breath 84% sats on RA (improved to 96% with 2L NC) and sinus tachycardia @ 115 bpm and she was treated with Zosyn and Levaquin for pneumonia. She has become progressively more hypoxic since admission and needing 15L non rebreather. She was assessed overnight as she was becoming increasingly hypoxic and given 40mg IV lasix. On rounds this morning she was saturating at 92% oxygen when seen by Dr Jules and advised transferring the patient to ICU for closer monitoring. The patient was seen shortly after transfer at around 7:20am. She was feeling significantly short of breath and was complaining of a very dry mouth. Denies chest pain. ROS below. Past Medical/Surgical History PMHx Mesothelioma s/p chemo and radiotherapy MGUS Depression and anxiety Osteopenia Osteoarthritis IBS Vit D deficiency Anemia HTN GERD Dysphagia PSHx Back surgery Total abdominal Hysterectomy + BSO Knee replacement Family History Cancer Diabetes mellitus FH: lung disease Gallbladder disease Heart disease Hypertension Social History Smoking Status: Never Smoker Drug Use: none Marital Status: Housing Status: lives with family Occupation Status: unemployed, other Allergies Coded Allergies: No Known Allergies (Verified , 08/30/16) Home Medications Scheduled Cholecalciferol (Vitamin D3), 2,000 UNIT PO QAM Dexlansoprazole (Dexilant), 60 MG PO DAILYBB Dorzolamide Hcl-Timolol Maleat (Cosopt Oph), 1 DROP OPR BID Fluoxetine Hcl (Fluoxetine Hcl), UD Losartan Potassium (Cozaar), 100 MG PO QAM Magnesium (Magnesium), 250 MG PO QPM Venlafaxine Hcl (Venlafaxine Extended Rel), 37.5 MG PO UD Current Inpatient Medications Current Inpatient Medications Medications (Trade) Dose Ordered Sig/Carol Route Start Time Stop Time Status Last Admin Dose Admin Ioversol (Optiray 320) 100 ml UD PRN IV 08/30/16 22:00 09/03/16 21:59 Acetaminophen (Tylenol Tab) 650 mg Q4H PRN PO 08/30/16 23:30 09/29/16 23:29 Al Hydrox/Mg Hydrox/Simethicone (Maalox Max Susp) 15 ml Q4H PRN PO 08/30/16 23:30 09/29/16 23:29 Magnesium Hydroxide (Milk Of Magnesia Susp) 30 ml Q12H PRN PO 08/30/16 23:30 09/29/16 23:29 Ondansetron HCl (Zofran Inj) 4 mg Q6H PRN IV 08/30/16 23:30 09/29/16 23:29 Piperacillin Sod/ Tazobactam Sod (Consult) 1 ea UD PRN N/A 08/31/16 01:15 09/30/16 01:14 Levofloxacin 1 ea 1 ea UD PRN N/A 08/31/16 01:15 09/30/16 01:14 Piperacillin Sod/ Tazobactam Sod 3.375 gm/Dextrose 115 ml @ 28.75 mls/ hr Q8H IV 08/31/16 04:00 09/07/16 03:59 09/01/16 04:16 28.75 MLS/HR Levofloxacin/Prmx (Levaquin / D5W/ Premixed D5W) 150 ml @ 100 mls/hr Q48H IV 09/02/16 02:00 09/07/16 02:30 Dorzolamide/ Timolol (Cosopt Op Soln) 1 drops BID OPR 08/31/16 09:00 09/30/16 08:59 09/01/16 09:10 1 DROPS Losartan Potassium (coZAAR TAB) 100 mg QAM PO 08/31/16 09:00 09/30/16 08:59 09/01/16 09:10 100 MG Cholecalciferol (Vitamin D Tab) 2,000 inter.unit QAM PO 08/31/16 09:00 09/30/16 08:59 09/01/16 09:11 2,000 INTER.UNIT Pantoprazole Sodium (Protonix Tab) 40 mg DAILYBB PO 08/31/16 06:00 09/30/16 05:59 09/01/16 06:26 40 MG Magnesium Oxide (Mag-Ox Tab) 400 mg QPM PO 08/31/16 21:00 09/30/16 20:59 08/31/16 20:28 400 MG Fluoxetine HCl (Prozac Cap) 20 mg QAM PO 08/31/16 09:00 09/30/16 08:59 09/01/16 09:10 20 MG Albuterol/ Ipratropium (Duoneb) 3 ml QIDR INH 08/31/16 08:00 09/30/16 07:59 09/01/16 01:48 3 ML Enoxaparin Sodium (Lovenox Inj) 40 mg QAM SQ 08/31/16 09:00 09/30/16 08:59 09/01/16 09:11 40 MG Venlafaxine HCl (effeXOR EXTENDED REL CAP) 37.5 mg Q3D@2100 PO 08/31/16 21:00 09/30/16 20:59 08/31/16 20:29 37.5 MG Zolpidem Tartrate 5 mg 5 mg HS PRN PO 08/31/16 12:15 09/30/16 12:14 Vancomycin HCl 1000 mg/Sodium Chloride 270 ml @ 125 mls/hr Q12 IV 09/01/16 09:00 09/08/16 08:59 UNV Vancomycin HCl/ Sodium Chloride (Vancomycin Inj/ Nss 500ml) 542 ml @ 200 mls/hr TODAY@0800 ONCE IV 09/01/16 08:00 09/01/16 10:42 Vancomycin HCl 1 ea 1 ea UD PRN N/A 09/01/16 07:15 10/01/16 07:14 Potassium Chloride 10 meq/ Prmx 100 ml @ 100 mls/hr Q1H IV 09/01/16 08:15 09/01/16 11:14 09/01/16 09:09 100 MLS/HR Magnesium Sulfate 1 gm/Prmx 100 ml @ 100 mls/hr TODAY@0845 ONCE IV 09/01/16 08:45 09/01/16 09:44 09/01/16 09:09 100 MLS/HR Methylprednisolone Sodium Succinate/ Syringe (Solu-Medrol IV/ Syringe) 0.64 ml @ 1.5 mls/min Q8 IV 09/01/16 14:00 10/01/16 13:59 Review of Systems Constitutional: No chills, No fever Eyes: No worsening of vision ENT: + problem reported (very dry mouth (on 15L non re-breather)) Respiratory: + cough, + dyspnea at rest, + shortness of breath, No hemoptysis, No wheezing Cardiovascular: No chest pain Abdomen: No GI bleeding, No constipation, No diarrhea, No nausea, No pain, No vomiting Musculoskeletal: No joint pain, No muscle pain Genitourinary - Female: + problem reported (leonard cath inserted currently), No dysuria (previous to admission), No hematuria Hematologic / Lymphatic: No abnormal bleeding/bruising Integumentary: No rash Physical Exam Date Time Temp Pulse Resp B/P Pulse Ox O2 Delivery O2 Flow Rate FiO2 09/01/16 07:19 37.3 86 34 92 15.0 09/01/16 04:00 92 Non-Rebreather 15.0 100 09/01/16 03:57 37.3 86 34 134/78 92 Non-Rebreather 15.0 09/01/16 01:00 88 24 97 Non-Rebreather 100 09/01/16 00:01 84 Nasal Cannula 6.0 Non-Rebreather 08/31/16 23:50 37.5 98 22 145/70 87 Nasal Cannula 6.0 08/31/16 20:00 95 Nasal Cannula 6.0 08/31/16 19:38 36.8 93 20 135/65 95 6.0 08/31/16 19:15 84 18 93 Nasal Cannula 4.0 08/31/16 16:00 Nasal Cannula 5.0 08/31/16 15:57 37.1 89 20 123/76 92 4.0 08/31/16 15:41 88 18 92 Nasal Cannula 5.0 08/31/16 12:00 Nasal Cannula 4.0 08/31/16 11:29 36.7 80 20 139/67 91 Nasal Cannula 4.0 08/31/16 11:27 94 18 92 Nasal Cannula 4.0 General Appearance: + moderate distress (respiratory), + obese Head: normocephalic, atraumatic Eyes: normal inspection, PERRL, EOMI (grossly) ENT: normal ENT inspection, + pertinent finding (jennifer mouth and pale lips) Neck: no JVD Respiratory/Chest: + decreased breath sounds (R > L), + accessory muscle use, + crackles (bilateral), + pertinent finding (reduced right sided lung movement) Cardiovascular: no edema, no JVD, no murmur, normal peripheral pulses, + tachycardia Abdomen/GI: normal bowel sounds, non tender, soft, no pulsatile mass Back: no CVA tenderness Extremities/Musculoskelatal: no calf tenderness (mild sensitivity b/l longstanding, no swelling or erythema) Neurologic/Psych: no motor/sensory deficits (gross upper and lower motor and sensory examination, generlized weakness), alert Skin: + pallor (lips), + pertinent finding (cool peripheries with prolonged cap refill 4s, centrally WNL) Laboratory Results Last 24 Hours Test 09/01/16 01:20 09/01/16 06:50 09/01/16 07:37 Troponin I < 0.015 ng/ml Pro-B-Type Natriuretic Peptide 434 pg/ml White Blood Count 12.72 K/uL Red Blood Count 3.33 M/uL Hemoglobin 10.0 g/dL Hematocrit 29.8 % Mean Corpuscular Volume 89.5 fL Mean Corpuscular Hemoglobin 30.0 pg Mean Corpuscular Hemoglobin Concent 33.6 g/dl Platelet Count 125 K/uL Mean Platelet Volume 9.2 fL Neutrophils (%) (Auto) 82.3 % Lymphocytes (%) (Auto) 7.5 % Monocytes (%) (Auto) 7.4 % Eosinophils (%) (Auto) 2.0 % Basophils (%) (Auto) 0.2 % Neutrophils # (Auto) 10.45 K/uL Lymphocytes # (Auto) 0.96 K/uL Monocytes # (Auto) 0.94 K/uL Eosinophils # (Auto) 0.26 K/uL Basophils # (Auto) 0.03 K/uL RDW Standard Deviation 46.3 fL RDW Coefficient of Variation 14.1 % Immature Granulocyte % (Auto) 0.6 % Immature Granulocyte # (Auto) 0.08 K/uL Polychromasia 1+ Sodium Level 136 mmol/L Potassium Level 3.2 mmol/L Chloride Level 98 mmol/L Carbon Dioxide Level 25 mmol/L Anion Gap 13.0 mmol/L Blood Urea Nitrogen 15 mg/dl Creatinine 0.94 mg/dl Est Creatinine Clear Calc Drug Dose 46.2 ml/min Estimated GFR () 66.4 Estimated GFR (Non- 57.3 BUN/Creatinine Ratio 16.0 Random Glucose 98 mg/dl Calcium Level 8.9 mg/dl Phosphorus Level 3.8 mg/dl Magnesium Level 1.5 mg/dl Immunoglobulin G 891.0 mg/dL Immunoglobulin A 276.0 mg/dL Immunoglobulin M 21.7 mg/dL Bedside Hemoglobin 9.9 g/dl Bedside Hematocrit 29 % Bedside Blood Gas pH (LAB) 7.43 Bedside Blood Gas pCO2 (LAB) 38 mmHg Bedside Blood Gas pO2 (LAB) 46 mmHg Bedside Blood Gas HCO3 (LAB) 26 meq/L Bedside Blood Gas Total CO2 27 mEq/l Bedside Blood Gas Base Excess (LAB) 1.0 meq/L Bedside Blood Gas O2 Saturation 83.0 % Bedside Sodium 132 mEq/L Bedside Potassium 3.2 mEq/L Diagnostic Results CT ANGIOGRAM OF THE CHEST CLINICAL HISTORY: Respiratory distress. Atypical chest pain. Hypoxia. Mesothelioma. COMPARISON STUDY: No previous studies for comparison. TECHNIQUE: Following the IV administration of 112 mL of Optiray-320, CT angiogram of the thorax was performed from the thoracic inlet to the lung bases utilizing the pulmonary embolus protocol. Images are reviewed in the axial, sagittal, and coronal planes. IV contrast was administered without complication. MIP imaging was performed. CT DOSE: 438.56 mGy.cm FINDINGS: There is a stable 17 mm hypodensity within the left lobe of the liver. There are mildly enlarged mediastinal and hilar lymph nodes, similar to the preceding study. There was no evidence of thoracic aortic dilatation. There were no pulmonary artery filling defects to indicate acute pulmonary embolism. There is mild right-sided pleural thickening. As a small amount of perihepatic fluid on the right. There is extensive right lung pulmonary consolidation. There is bronchiectasis. There are multifocal groundglass opacities within the left lung. Diagnostic considerations include pneumonia versus pulmonary edema. There is a lower thoracic compression fracture. IMPRESSION: 1. No CT evidence of acute pulmonary embolism 2. No CT evidence of acute thoracic aortic aneurysm or dissection 3. Diffuse esophageal thickening 4. Mild mediastinal and hilar adenopathy unchanged from the prior study 5. Extensive right lung consolidation with bronchiectasis. 6. Multifocal left lung groundglass opacities, consistent with either a multifocal pneumonia or alveolar edema. Clinical and radiographic follow-up is recommended. Electronically signed by: Jordy Sousa M.D. 08/30/2016 10:31 PM Dictated Date/Time: 08/30/2016 10:25 PM CHEST ONE VIEW PORTABLE - 09/01/2016 CLINICAL HISTORY: sob dyspnea COMPARISON STUDY: 09/01/2016 1:14 AM FINDINGS: Diffuse bilateral parenchymal fibrotic change. Superimposed component of congestive failure. Pleural thickening lateral right hemithorax stable. Chronic elevation right hemithorax diaphragm. IMPRESSION: Congestive failure with superimposed infiltrative change right hemithorax. No major change radiographically from the prior day. Electronically signed by: Michael Shell M.D. 09/01/2016 9:05 AM Dictated Date/Time: 09/01/2016 9:03 AM Assessment & Plan 81 yo female with mesothelioma Neuro: Appears tired from respiratory distress. Depression and anxiety: currently in transition from venlafaxine to fluoxetine. Repeat EKG to assess for QTc. Cardiovascular: BP stable: Continue Losartan 100 mg QAM ?pulmonary edema: appears dry currently therefore will hold of additional Lasix dosing. BNP WNL. Echo ordered, pending. Previous stress echo in 2013 normal, no previous MIs. Serial troponins negative Pulm: Pneumonia - continue levaquin and Zosyn. Will add vancomycin. Hold off fungal coverage at this stage as suspect respiratory failure more likely from pneumonitis. Lactic acid 1.1 overnight. Acute hypoxic respiratory failure - pH 7.43, pCO2 38, pO2 46 on 15L non re- breather, HCO3 26. Radiation pneumonitis - 125mg methylprednisone IV startd this morning, will continue with Q8H 40mg IV. Duonebs increase to Q4H. GI: No acute issues. Monitor BM : Hypokalemia - replacement ordered by Dr Gale x3 10 meq KCl IV Hypomagnesemia - 1.7, replace with 1g IV Mg sulphate UO good s/p lasix, continue to monitor closely. Cr stable. Repeat labs in the afternoon. Endo: Continue Vit D 2000 IU daily PO added to labs from this morning VTE + GI Prophylaxis Lovenox 40 mg SC. SCDs Pantoprazole 40 mg IV daily (on Dexilant as O/P) Code: Full Disposition - Continued ICU stay as possible need for BiPAP or ventilation if patient tires or hypoxia worsens. Resident Physician Supervision Note: I interviewed and examined the patient. Discussed with Dr. Gil and agree with findings and plan as documented in the note. Any exceptions or clarifications can be found in my dictated addendum. Documented By: Michelle Reardon Resident Tracking Resident Involvement: Resident Care Provided Care Provided: Adult Hospital Medicine (ICU admission)
--- NOTE | 2016-09-01 10:36 | Pharmacy Progress Note ---
Pharmacy Antibiotic Consult Date of Service: Sep 01, 2016. Pharmacy Dosing Scope Pharmacy is consulted to initiate Vancomycin IV dosing therapy, order appropriate labs and adjust drug dose/frequency. Subjective The patient is a 81 year old female admitted on Aug 30, 2016 at 23:27. Objective Height (Feet): 5 Height (Inches): 0.00 Weight (Kilograms): 85.100 Lab Results (24hrs): Laboratory Tests Test 09/01/16 06:50 BUN/Creatinine Ratio 16.0 Blood Urea Nitrogen 15 mg/dl Creatinine 0.94 mg/dl White Blood Count 12.72 K/uL Red Blood Count 3.33 M/uL Hemoglobin 10.0 g/dL Hematocrit 29.8 % Mean Corpuscular Volume 89.5 fL Mean Corpuscular Hemoglobin 30.0 pg Mean Corpuscular Hemoglobin Concent 33.6 g/dl Platelet Count 125 K/uL Mean Platelet Volume 9.2 fL Neutrophils (%) (Auto) 82.3 % Lymphocytes (%) (Auto) 7.5 % Monocytes (%) (Auto) 7.4 % Eosinophils (%) (Auto) 2.0 % Basophils (%) (Auto) 0.2 % Neutrophils # (Auto) 10.45 K/uL Lymphocytes # (Auto) 0.96 K/uL Monocytes # (Auto) 0.94 K/uL Eosinophils # (Auto) 0.26 K/uL Basophils # (Auto) 0.03 K/uL Micro Results: Item Value Date Time MRSA DNA Surveillance Screen - Final Complete 08/31/16 0000 Nasal Specimen Negative for MRSA by DNA Probe Blood Culture - Preliminary Resulted 08/30/16 2202 Blood NO GROWTH TO DATE. Blood Culture - Preliminary Resulted 08/30/16 2158 Blood NO GROWTH TO DATE. Recent Pertinent Medications Item Value Date Time Piperacillin Sod/ 120 ml @ 30 mls/hr 09/01/16 1200 Tazobactam Sod Q8H/IV 4.5 gm/Dextrose Levofloxacin 750 150 ml @ 100 mls/hr 09/02/16 0200 mg/Prmx Q48H/IV Assessment & Plan 81 yo F w/ history of mesothelioma, admitted to ICU overnight due to respiratory decompensation. Patient on broad spectrum antibiotics- Levaquin and Zosyn IV- but it was decided that since she decompensated that it would be reasonable to add Vancomycin IV at this time. Cultures have been negative thus far. ID consult placed. 1. Vancomycin * Loading dose: 2100 mg IV X 1 dose then: * Continue 1300 mg IV every 18 hours * Estimated kinetics: ke=.038 hr-1, T1/2= ~18 hours * I decided to dose her on her half life (aggressively) due to ICU status/lung source * Pt is at risk for drug accumulation given BMI >35 kg/m2 but this may help my level be closer to 20 mcg/mL * Goal trough level estimate: between 15 - 20 mcg/mL. * A trough level has been ordered for: @1530 prior to the 1600 dose. 2. Zosyn * Due to overnight events, increase to 4.5 g IV every 8 hours * This more aggressive dose has been selected to the BMI, ICU status and lung source 3. Levaquin * Reduced to 750 mg IV every 48 hours due to CrCl <50 mL/min * Will adjust up if necessary Pharmacy will continue to follow and will adjust dose/frequency as necessary. Thank you
--- NOTE | 2016-09-01 11:07 | INFECT. DISEASE CONSULTATION ---
DATE OF CONSULTATION: 09/01/2016 DATE OF CONSULTATION: 09/01/2016. REQUESTING PHYSICIAN: Dr. Gale. HISTORY OF PRESENT ILLNESS: This is an 81-year-old female who was admitted from home after she had worsening cough and shortness of breath at home. She does have a history of mesothelioma which was treated with VATS procedure in addition to chemotherapy in [place]. She was diagnosed with mesothelioma in September 2015 and it appears that she finished her treatment in April or May of this year. Since 08/21/2016 she has had progressive cough. She also was having O2 desaturations at home. For these reasons, she was brought to the hospital. A CAT scan done in the Emergency Room on the showed a right consolidation in the area and opacities in the left lung. She did have a negative PE but did have lymphadenopathy. Her most recent chest x-ray was done this morning which showed pleural thickening with superimposed CHF and infiltrates. She was initially placed on Levaquin and Zosyn and was tolerating these well. She is being followed by pulmonary. Overnight she had acute desaturation. She was treated with Lasix for suspected congestive heart failure. She did have a diuresis of almost 2 liters of fluid but continued to have progressive shortness of breath. For this reason, she was transferred to the intensive care unit this morning. My exam was done in the ICU. On my examination, she is lethargic and unable to provide review of systems. She currently is on high flow O2 but has not yet been intubated. On admission, she did have a flu swab which was negative. Her blood cultures were obtained in the Emergency Room as well and did reveal negative results so far. She has had leukocytosis and today it is 12.7. She is also being treated with IV steroids. She has not had sputum culture or any interventions done to date. PAST MEDICAL HISTORY: Significant for mesothelioma diagnosed in September of 2015. Chronic O2 therapy. PAST SURGICAL HISTORY: Significant for back surgery, hysterectomy, knee replacement and VATS. FAMILY HISTORY: Noncontributory. SOCIAL HISTORY: Not recorded for alcohol use, drug use or tobacco use. I am unable to obtain any information from the patient on my examination. She is and lives with family. Per the H\T\P, there are no recent sick contacts that I can elicit. ALLERGIES: She has no known drug allergies. CURRENT MEDICATIONS: Include Levaquin, Solu-Medrol, vancomycin, potassium, magnesium, Effexor, Ambien, eyedrops, Cozaar, vitamin D, Prozac, Lovenox, DuoNebs, Protonix, Tylenol, Maalox, milk of magnesia and Zofran. PHYSICAL EXAMINATION: VITAL SIGNS: She has been afebrile since admission, pulse 88, respiratory rate 24, blood pressure 134/78, oxygen saturation currently is 95% on high-flow O2. GENERAL: She is lethargic on my examination. LUNGS: On the left are fairly clear; however, breath sounds on the right side are significantly diminished. I do not appreciate any wheezing. HEART: Rate is regular. ABDOMEN: Soft. There is no edema. Shukla catheter is in place with yellow urine. LABORATORY STUDIES: CBC today reveals a white blood cell count of 12.7, hemoglobin 10.0, hematocrit 29.8, platelets are 125. Chemistry panel today reveals a sodium of 136, potassium 3.2, chloride 98, bicarbonate 25, BUN 15, creatinine 0.9, glucose of 98. Again, the flu PCR in the Emergency Room was negative. Blood cultures in the Emergency Room are negative. Findings of CAT scan and chest x-ray this morning are as above. ASSESSMENT AND PLAN: 1. Bilateral infiltrates. 2. Leukocytosis. At this time, she should be continued on broad-spectrum antibiotics. Vancomycin was added today upon her transfer to the ICU. She did have a negative MRSA swab; however, that does not exclude the possibility for MRSA pneumonia and this can be continued. Should she have any fevers. A repeat blood culture should be obtained. To this point, she has not had a productive cough and sputum culture has not been done. Of concern is worsening process in the lungs due to underlying mesothelioma. She is being followed by pulmonary and hematology/oncology currently. If she does not have clinical improvement on multiple broad-spectrum antibiotics. A discussion regarding a bronchoscopy or other diagnostic procedure should be entertained. Certainly if she does have productive cough a sputum culture should be obtained. Otherwise, cultures can be obtained via bronchoscopy. Her blood cultures are negative to date. We will continue to follow and she will be maintained on broad-spectrum antibiotics.
--- NOTE | 2016-09-01 11:30 | Hospitalist Progress Note ---
Hospitalist Progress Note Date of Service Sep 01, 2016. (Cami Valdez PA-C) Subjective Pt evaluation today including: conversation w/ patient, physical exam, chart review, lab review, review of studies, conversation w/ senior analytic consultant, review of inpatient medication list Patient reports increasing shortness of breath throughout the night. Currently on high flow oxygen. History is limited. Denies any chest discomfort. Additional Comments: Unable to obtain secondary to respiratory distress (Cami Valdez PA-C) this pt was moved in acute respiratory distress, high oxygen requirement and concern for radiation pneumonitis (Kian Gale M.D.) Objective Vital Signs Date Time Temp Pulse Resp B/P Pulse Ox O2 Delivery O2 Flow Rate FiO2 09/01/16 07:30 88 24 95 Nasal Cannula 100 09/01/16 07:19 37.3 86 34 92 15.0 09/01/16 04:00 92 Non-Rebreather 15.0 100 09/01/16 03:57 37.3 86 34 134/78 92 Non-Rebreather 15.0 09/01/16 01:00 88 24 97 Non-Rebreather 100 09/01/16 00:01 84 Nasal Cannula 6.0 Non-Rebreather 08/31/16 23:50 37.5 98 22 145/70 87 Nasal Cannula 6.0 08/31/16 20:00 95 Nasal Cannula 6.0 08/31/16 19:38 36.8 93 20 135/65 95 6.0 08/31/16 19:15 84 18 93 Nasal Cannula 4.0 08/31/16 16:00 Nasal Cannula 5.0 08/31/16 15:57 37.1 89 20 123/76 92 4.0 08/31/16 15:41 88 18 92 Nasal Cannula 5.0 08/31/16 12:00 Nasal Cannula 4.0 08/31/16 11:29 36.7 80 20 139/67 91 Nasal Cannula 4.0 08/31/16 11:27 94 18 92 Nasal Cannula 4.0 (Cami Valdez PA-C) Physical Exam General Appearance: + moderate distress (moderate respiratory distress, appears fatigued) Eyes: EOMI Neck: no JVD Respiratory/Chest: + pertinent finding (significant crackles noted throughout the right lower lobe and right middle lobe. Crackles also noted at the left base. Mild wheezing diffusely. Positive tachypnea.) Cardiovascular: + pertinent finding (occasionally irregular. No murmur auscultated.) Abdomen: normal bowel sounds, non tender, soft Extremities: non-tender, no pedal edema Skin: warm/dry (Cami Valdez PA-C) General Appearance: WD/WN, + severe distress Respiratory/Chest: + respiratory distress, + accessory muscle use Cardiovascular: regular rate, rhythm, + systolic murmur Abdomen: normal bowel sounds, non tender, soft Extremities: no pedal edema, no calf tenderness Neurologic/Psychiatric: alert, oriented x 3 (Kian Gale M.D.) Laboratory Results 09/01/16 06:50 Red Blood Count 3.33, Mean Corpuscular Volume 89.5, Mean Corpuscular Hemoglobin 30.0, Mean Corpuscular Hemoglobin Concent 33.6, Mean Platelet Volume 9.2, Neutrophils (%) (Auto) 82.3, Lymphocytes (%) (Auto) 7.5, Monocytes (%) (Auto) 7.4, Eosinophils (%) (Auto) 2.0, Basophils (%) (Auto) 0.2, Neutrophils # (Auto) 10.45, Lymphocytes # (Auto) 0.96, Monocytes # (Auto) 0.94, Eosinophils # (Auto) 0.26, Basophils # (Auto) 0.03 09/01/16 06:50 Test 09/01/16 01:20 09/01/16 06:50 09/01/16 07:37 09/01/16 10:59 Pro-B-Type Natriuretic Peptide 434 pg/ml (0-1800) White Blood Count 12.72 K/uL (4.8-10.8) Red Blood Count 3.33 M/uL (4.2-5.4) Hemoglobin 10.0 g/dL (12.0-16.0) Hematocrit 29.8 % (37-47) Mean Corpuscular Volume 89.5 fL (80-100) Mean Corpuscular Hemoglobin 30.0 pg (25-34) Mean Corpuscular Hemoglobin Concent 33.6 g/dl (32-36) Platelet Count 125 K/uL (130-400) Mean Platelet Volume 9.2 fL (7.4-10.4) Neutrophils (%) (Auto) 82.3 % Lymphocytes (%) (Auto) 7.5 % Monocytes (%) (Auto) 7.4 % Eosinophils (%) (Auto) 2.0 % Basophils (%) (Auto) 0.2 % Neutrophils # (Auto) 10.45 K/uL (1.4-6.5) Lymphocytes # (Auto) 0.96 K/uL (1.2-3.4) Monocytes # (Auto) 0.94 K/uL (0.11-0.59) Eosinophils # (Auto) 0.26 K/uL (0-0.5) Basophils # (Auto) 0.03 K/uL (0-0.2) RDW Standard Deviation 46.3 fL (36.4-46.3) RDW Coefficient of Variation 14.1 % (11.5-14.5) Immature Granulocyte % (Auto) 0.6 % Immature Granulocyte # (Auto) 0.08 K/uL (0.00-0.02) Polychromasia 1+ Anion Gap 13.0 mmol/L (3-11) Est Creatinine Clear Calc Drug Dose 46.2 ml/min Estimated GFR () 66.4 Estimated GFR (Non- 57.3 BUN/Creatinine Ratio 16.0 (10-20) Calcium Level 8.9 mg/dl (8.5-10.1) Phosphorus Level 3.8 mg/dl (2.5-4.9) Magnesium Level 1.5 mg/dl (1.8-2.4) Immunoglobulin G 891.0 mg/dL (700-1600) Immunoglobulin A 276.0 mg/dL (70-400) Immunoglobulin M 21.7 mg/dL (40-230) Bedside Hemoglobin 9.9 g/dl (12.0-16.0) Bedside Hematocrit 29 % (37-47) Bedside Blood Gas pH (LAB) 7.43 (7.35-7.45) Bedside Blood Gas pCO2 (LAB) 38 mmHg (35-46) Bedside Blood Gas pO2 (LAB) 46 mmHg (80-95) Bedside Blood Gas HCO3 (LAB) 26 meq/L (19-24) Bedside Blood Gas Total CO2 27 mEq/l (24-31) Bedside Blood Gas Base Excess (LAB) 1.0 meq/L (-9-1.8) Bedside Blood Gas O2 Saturation 83.0 % (90-95) Bedside Sodium 132 mEq/L (135-144) Bedside Potassium 3.2 mEq/L (3.3-5.0) Creatine Kinase MB Ratio (0-3.0) Last 24 Hours Test 09/01/16 01:20 09/01/16 06:50 09/01/16 07:37 09/01/16 10:59 Troponin I < 0.015 ng/ml Pro-B-Type Natriuretic Peptide 434 pg/ml White Blood Count 12.72 K/uL Red Blood Count 3.33 M/uL Hemoglobin 10.0 g/dL Hematocrit 29.8 % Mean Corpuscular Volume 89.5 fL Mean Corpuscular Hemoglobin 30.0 pg Mean Corpuscular Hemoglobin Concent 33.6 g/dl Platelet Count 125 K/uL Mean Platelet Volume 9.2 fL Neutrophils (%) (Auto) 82.3 % Lymphocytes (%) (Auto) 7.5 % Monocytes (%) (Auto) 7.4 % Eosinophils (%) (Auto) 2.0 % Basophils (%) (Auto) 0.2 % Neutrophils # (Auto) 10.45 K/uL Lymphocytes # (Auto) 0.96 K/uL Monocytes # (Auto) 0.94 K/uL Eosinophils # (Auto) 0.26 K/uL Basophils # (Auto) 0.03 K/uL RDW Standard Deviation 46.3 fL RDW Coefficient of Variation 14.1 % Immature Granulocyte % (Auto) 0.6 % Immature Granulocyte # (Auto) 0.08 K/uL Polychromasia 1+ Sodium Level 136 mmol/L Potassium Level 3.2 mmol/L Chloride Level 98 mmol/L Carbon Dioxide Level 25 mmol/L Anion Gap 13.0 mmol/L Blood Urea Nitrogen 15 mg/dl Creatinine 0.94 mg/dl Est Creatinine Clear Calc Drug Dose 46.2 ml/min Estimated GFR () 66.4 Estimated GFR (Non- 57.3 BUN/Creatinine Ratio 16.0 Random Glucose 98 mg/dl Calcium Level 8.9 mg/dl Phosphorus Level 3.8 mg/dl Magnesium Level 1.5 mg/dl Immunoglobulin G 891.0 mg/dL Immunoglobulin A 276.0 mg/dL Immunoglobulin M 21.7 mg/dL Bedside Hemoglobin 9.9 g/dl Bedside Hematocrit 29 % Bedside Blood Gas pH (LAB) 7.43 Bedside Blood Gas pCO2 (LAB) 38 mmHg Bedside Blood Gas pO2 (LAB) 46 mmHg Bedside Blood Gas HCO3 (LAB) 26 meq/L Bedside Blood Gas Total CO2 27 mEq/l Bedside Blood Gas Base Excess (LAB) 1.0 meq/L Bedside Blood Gas O2 Saturation 83.0 % Bedside Sodium 132 mEq/L Bedside Potassium 3.2 mEq/L Creatine Kinase MB Ratio (Cami Valdez PA-C) Diagnostic Results CHEST ONE VIEW PORTABLE CLINICAL HISTORY: sob dyspnea COMPARISON STUDY: 09/01/2016 1:14 AM FINDINGS: Diffuse bilateral parenchymal fibrotic change. Superimposed component of congestive failure. Pleural thickening lateral right hemithorax stable. Chronic elevation right hemithorax diaphragm. IMPRESSION: Congestive failure with superimposed infiltrative change right hemithorax. No major change radiographically from the prior day. Electronically signed by: Michael Shell M.D. 09/01/2016 9:05 AM Dictated Date/Time: 09/01/2016 9:03 AM The status of this report is Signed. Draft = Not yet reviewed or approved by Radiologist. Signed = Reviewed and approved by Radiologist. <AttendingPhy>Rich Kerr M.D.</AttendingPhy> <FamilyPhy>Vicente Jaquez M.D.</FamilyPhy> <PrimaryPhy>Vicente Jaquez M.D.</PrimaryPhy> <UnitNumber> [id number]</UnitNumber> <VisitNumber>[id number]</VisitNumber> <PatientName> LIBBY MIKE</PatientName> <DateOfBirth>1935</DateOfBirth> <Location> C.[facility]</Location> <ServiceDate>08/30/16</ServiceDate> <MNE>ESINDI</MNE> < OrderingPhy>Evette Balderas MD</OrderingPhy> <OrderingPhyMNE>f rep ord dr mackenzie</ OrderingPhyMNE> <DictatingPhyMNE>f rep dict dr mackenzie</DictatingPhyMNE> <CCListMNE> f rep ct tonie</CCListMNE> <AdmittingPhyMNE>f pt admit dr mackenzie</AdmittingPhyMNE> < AttendingPhyMNE>f pt attend dr mackenzie</AttendingPhyMNE> <ConsultingPhyMNE>f pt consult dr mackenzie</ConsultingPhyMNE> <FamilyPhyMNE>f pt fam dr mackenzie</FamilyPhyMNE> <OtherPhyMNE>f pt other dr mackenzie</OtherPhyMNE> < PrimaryPhyMNE>f pt prim care dr mackenzie</PrimaryPhyMNE> <ReferringPhyMNE>f pt referring dr mackenzie</ReferringPhyMNE> (Cami Valdez PA-C) Assessment and Plan 81-year-old female presents the emergency department with severe dyspnea on exertion, progressive weakness-acute respiratory failure with hypoxia. + SIRS secondary to severe RLL PNA. Patient decompensated overnight. Acute respiratory Failure with hypoxia secondary to severe RLL PNA and underlying mesothelioma -Decompensation with increased oxygen requirements noted overnight. -Evaluated by the street sweeper-Lasix 40 mg IV given, started on steroids, vancomycin and an antifungal -Critical care consulted-->transfer to the ICU -Repeat chest x-ray looks worsening infiltrative change particularly on the right-? ARDS secondary to PNA -Continue high flow O2 -Continue Vanc, Zosyn, Levaquin, solu-medrol 40 mg iv q 8 hr -d/c antifungal -check echo -trend cardiac enzymes throughout the day to eval for acute cardiac event causing failure -pulmonary following Mesothelioma -heme/onc following Hypokalemia -repleted HTN-BP controlled -Cozaar 100 mg daily -Hydralazine 10 mg IV q 6 hr PRN Depression- -Effexor ER 37.5 mg daily -Prozac 20 mg daily Glaucoma -Cosopt gtt DVT prophylaxis -Lovenox 40 mg subQ daily -TEDS, SCDs CODE STATUS -LEVEL I FULL CODE (Cami Valdez, PA-C) 81 F with history of mesothelioma, presents with progressive respiratory failure, maybe infectious or radiation pneumonitis, there is some question of progression of mesothelioma pneumonia, expanded to triple coverage, vancomycin, levaquin and zosyn, holding on antifungals per ID recommendation radiation pneumonitis, started on antibiotics acute respiratory failure, high flow o2 (Kian Gale M.D.)
--- NOTE | 2016-09-01 12:30 | ECHOCARDIOGRAM REPORT ---
*NOTICE TO RECEIVING [employer] This information is strictly Confidential and protected under [place] law. [place] law prohibits you from making any further disclosure of this information unless further disclosure is expressly permitted by the written consent of the person to whom it pertains or is authorized by law. A general authorization for the release of medical or other information is not sufficient for this purpose. Hospital accepts no responsibility if the information is made available to any other person, INCLUDING THE PATIENT. Interpretation Summary * Name: LIBBY MIKE Study Date: 09/01/2016 09:32 AM BP: 134/78 mmHg * Patient Location: .MSICU\S\E110\S\1 HR: 82 * : 1935 (M/d/yyyy) Gender: Female Height: 60 in * Age: 81 yrs Ethnicity: CA Weight: 187 lb * Ordering Physician: Evette Balderas * Referring Physician: Self, Referred * Performed By: [facility] * * Reason For Study: PULMONARY CONGESTION * BSA: 1.8 m2 * Low normal LV systolic function. * Left ventricular diastolic dysfunction. * Normal chamber dimensions. * No significant valvular abnormalities. * -- Conclusions -- * Aortic valve sclerosis moderate, without significant aortic valvular stenosis. Procedure Details * A complete two-dimensional transthoracic echocardiogram was performed (2D, M-mode, Doppler and color flow Doppler). Left Ventricle * The left ventricle is normal in size. * There is normal left ventricular wall thickness. * A full diastolic examination was done with clinical findings of Class I diastolic dysfunction. * Ejection Fraction = 50-55%. * Left ventricular systolic function is low normal. * The left ventricular wall motion is normal. Right Ventricle * The right ventricle is normal in size and function. Atria * The left atrial size is normal. * Right atrial size is normal. * No ASD detected; PFO is not assessed. Mitral Valve * There is moderate mitral annular calcification. * There is no mitral valve stenosis. * There is no mitral regurgitation noted. Tricuspid Valve * The tricuspid valve is not well visualized, but is grossly normal. * There is trace tricuspid regurgitation. Aortic Valve * The aortic valve is trileaflet. * Aortic valve sclerosis moderate, without significant aortic valvular stenosis. Pulmonic Valve * The pulmonary valve is inadequately visualized, but the Doppler data is adequate for interpretation. * There is no pulmonic valvular stenosis. * There is no significant pulmonary regurgitation. Great Vessels * The aortic root is normal size. Pericardium/Pleural * There is no pericardial effusion. MMode 2D Measurements and Calculations IVSd 1.0 cm IVSs 1.3 cm LVIDd 4.1 cm LVIDs 3.1 cm LVPWd 1.1 cm LVPWs 1.2 cm IVS/LVPW 10 FS 23.2 % EDV(Teich) 73.0 ml ESV(Teich) 38.7 ml EF(Teich) 47.0 % EDV(cubed) 67.5 ml ESV(cubed) 30.6 ml EF(cubed) 54.7 % % IVS thick 24.1 % % LVPW thick 17.5 % LV mass(C)d 139.6 grams LV mass(C)dI 77.0 grams/m\S\2 LV mass(C)s 125.9 grams LV mass(C)sI 69.4 grams/m\S\2 SV(Teich) 34.3 ml SI(Teich) 18.9 ml/m\S\2 SV(cubed) 37.0 ml SI(cubed) 20.4 ml/m\S\2 Ao root diam 3.7 cm Ao root area 11.0 cm\S\2 ACS 2.0 cm LA dimension 3.5 cm LA/Ao 0.94 LVOT diam 1.8 cm LVOT area 2.5 cm\S\2 LVAd ap4 20.3 cm\S\2 LVLd ap4 6.3 cm EDV(MOD-sp4) 54.8 ml EDV(sp4-el) 55.4 ml LVAs ap4 14.4 cm\S\2 LVLs ap4 5.5 cm ESV(MOD-sp4) 32.3 ml ESV(sp4-el) 32.2 ml EF(MOD-sp4) 41.1 % EF(sp4-el) 41.9 % LVAd ap2 23.3 cm\S\2 LVLd ap2 7.7 cm EDV(MOD-sp2) 57.7 ml EDV(sp2-el) 59.9 ml LVAs ap2 16.1 cm\S\2 LVLs ap2 6.2 cm ESV(MOD-sp2) 34.3 ml ESV(sp2-el) 35.2 ml EF(MOD-sp2) 40.5 % EF(sp2-el) 41.2 % LVLd %diff 17.7 % EDV(MOD-bp) 61.8 ml LVLs %diff 11.7 % ESV(MOD-bp) 34.4 ml EF(MOD-bp) 44.3 % SV(MOD-sp4) 22.5 ml SI(MOD-sp4) 12.4 ml/m\S\2 SV(MOD-sp2) 23.4 ml SI(MOD-sp2) 12.9 ml/m\S\2 SV(MOD-bp) 27.4 ml SI(MOD-bp) 15.1 ml/m\S\2 SV(sp4-el) 23.2 ml SI(sp4-el) 12.8 ml/m\S\2 SV(sp2-el) 24.7 ml SI(sp2-el) 13.6 ml/m\S\2 Doppler Measurements and Calculations MV E max adilia 95.4 cm/sec MV A max adilia 112.7 cm/sec MV E/A 0.85 MV P1/2t max adilia 80.6 cm/sec MV P1/2t 84.1 msec MVA(P1/2t) 2.6 cm\S\2 MV dec slope 280.7 cm/sec\S\2 MV dec time 0.15 sec Ao V2 max 133.9 cm/sec Ao max PG 7.2 mmHg Ao max PG (full) 4.0 mmHg SOHAM(V,A) 1.7 cm\S\2 SOHAM(V,D) 1.7 cm\S\2 LV V1 max PG 3.1 mmHg LV V1 max 88.3 cm/sec TR max adilia 264.8 cm/sec
[2016-09-01] MEDS: PIPERACILL/TAZOBAC IV 4.5 GM in DEXTROSE 5% 100ML IV SCH ×2 (12:53→20:17)
--- NOTE | 2016-09-01 14:11 | CRITICAL CARE CONSULTATION ---
DATE OF CONSULTATION: 09/01/2016 ADDENDUM Please accept this as an addendum to the care consultation done by Dr. Gil earlier today. CHIEF COMPLAINT: Shortness of breath. HISTORY OF PRESENT ILLNESS: The patient is an 81-year-old woman with a history of mesothelioma, which was diagnosed in September of 2015 when she presented with a right pleural effusion. She underwent a VATS with a wedge resection of the right lower lobe nodule as well as pleurectomy by Dr. Fortune. She has been receiving care at [facility] in [place] and has undergone radiation treatments as well as 5 or 6 treatments with chemotherapy. Since around the middle of July, she has had a cough and has been very fatigued. This has become worse over the past several weeks to the point where she requires assistance with her activities of daily living. She was at her primary care physician's office 2 days ago and was sent to the Emergency Department for oxygen saturations of 85% on room air and worsening shortness of breath. The patient was seen in the Emergency Department and given bronchodilators, normal saline and Zosyn. She underwent a CT of the chest, which showed no acute pulmonary embolism, thoracic aortic aneurysm or dissection. She has diffuse esophageal thickening; mild mediastinal and hilar adenopathy, which is unchanged; extensive right lung consolidation with bronchiectasis and multifocal left lung ground-glass opacities consistent with either a multifocal pneumonia or alveolar edema. She was admitted to the hospital and placed on Levaquin and vancomycin and over the past day, her oxygen requirements have increased. Last night, she was placed on 100% nonrebreather at some point and was transferred to the intensive care unit this morning due to oxygen saturations of 88%-90% on that 100% nonrebreather. On arrival to the intensive care unit, an ABG was performed, which showed pH 7.43, pCO2 of 38, pO2 of 46, and HCO3 of 26. She had been given Solu-Medrol 125 mg IV and Lasix 40 mg IV x1 prior to transfer to the ICU. Since then, she has been placed on a 40-liter high flow nasal cannula of 100%. The patient this morning reported that she feels lousy and primarily fatigued. She did complain of some mild shortness of breath. She denied chest pain, nausea or vomiting. Appetite has been poor. She denies productive cough, fevers or chills. She denies lower extremity swelling as well as hemoptysis. She is being seen by the oncology service as well as the infectious disease service, who was consulted today. I should note that upon transfer to the intensive care unit, her antibiotics were broadened to include vancomycin and voriconazole. She did not receive the voriconazole and it was discontinued for the time being. She is also being seen by Dr. Jules from the pulmonary service. PAST MEDICAL HISTORY: Also includes possible chronic obstructive pulmonary disease, thoracic vertebral compression fracture, osteoarthritis, irritable bowel syndrome and glaucoma. PAST SURGICAL HISTORY: Also includes cholecystectomy, breast biopsy and VATS. SOCIAL HISTORY: She has never smoked. Additional social history, family history, medications, and review of systems are as per Dr. Gil's consultation. PHYSICAL EXAMINATION: VITAL SIGNS: Temperature 37.3, heart rate 86, respiratory rate 34, and oxygen saturation 92% on 100% nonrebreather. HEENT: Pupils are equally round and reactive to light. Oral mucosa is dry. NECK: Veins are flat. LUNGS: Bibasilar crackles. No rhonchi or wheezes. HEART: Regular rate and rhythm. ABDOMEN: Soft, nondistended, and nontender. Active bowel sounds. EXTREMITIES: Warm. No edema. LABORATORY DATA: Labs had been reviewed and are significant for troponin negative x3. Potassium 3.2. White blood cell count 12.72, hemoglobin 9.9, hematocrit 29, and platelets 125. Negative influenza A and B. PRESENT MEDICATIONS: Acetaminophen, Maalox, DuoNeb, vitamin D, Cosopt ophthalmic solution, Lovenox, Prozac, Levaquin day #2, Cozaar, milk of magnesia, magnesium oxide, Solu-Medrol, Zofran, Protonix, Zosyn day #2, Effexor, and Ambien. Most recent imaging studies have been reviewed. IMPRESSION: 1. Acute hypoxemic respiratory failure secondary to pneumonia, possibly in combination with radiation pneumonitis. She has improved with some diuresis and is now saturating 99% on the high-flow nasal cannula. Her bronchodilator frequency has also been increased. She has been started on Solu-Medrol 40 mg IV q. 8 hours. 2. 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 Thus far, we do not have any records from the [facility]. She is status post radiation and chemotherapy. 3. Pneumonia with antibiotics now broadened to include vancomycin, Levaquin and Zosyn. The infectious disease service is also providing direction as far as antibiotics go. The voriconazole has been discontinued for now. 4. Hypokalemia and hypomagnesemia. 5. History of depression. 6. Glaucoma. 7. Possible esophageal dysmotility, status post speech evaluation in July of this year. 8. History of fibromyalgia and chronic fatigue. 9. History of vitamin D deficiency. PLAN: 1. Continue broad spectrum antibiotics and await culture data. 2. Continue Solu-Medrol and wean oxygen if we are able. I have discussed the potential for requiring mechanical ventilation with her family. She herself did not want to hear very much about it this morning. BiPAP may also be an option. So far, she is improving with her present therapy. 3. Continue gentle diuresis. 4. Followup echocardiogram results. 5. Continue DVT and GI prophylaxis. 6. Await any further documentation from [facility]. 7. Replete electrolytes. 8. Maintain n.p.o. with the exception of some ice chips until she is clearly improving from an oxygenation standpoint and work of breathing standpoint. 9. Many thanks to the consultants for their assistance in her care. Please call with any questions or concerns. Critical care time 60 minutes.
[2016-09-01] MEDS: METHYLPREDNISOLONE IV 40 MG in SYRINGE 0 ML IV SCH ×2 (15:01→20:18)
[2016-09-01] MEDS: MAGNESIUM OXIDE 400 MG TAB PO SCH (20:18)
[2016-09-02] VITALS (27 sets, daily range): BP systolic 102–131; BP diastolic 41–73; PULSE 52–83; TEMP 36.6–36.7; O2SAT 81–98
[2016-09-02] MEDS: LEVOFLOXACIN / D5W 750 MG in PREMIXED IN D5W 150 ML IV SCH (02:07)
[2016-09-02] MEDS: VANCOMYCIN INJ 1,300 MG in SODIUM CHLORIDE 0.9% 250ML 250 ML IV SCH ×2 (03:24→22:20)
[2016-09-02] MEDS: ALBUT/IPRATROP 3MG/0.5MG NEB 3 ML VIAL INH SCH ×6 (03:42→23:52)
[2016-09-02] MEDS: PIPERACILL/TAZOBAC IV 4.5 GM in DEXTROSE 5% 100ML IV SCH ×3 (04:11→20:30)
--- NOTE | 2016-09-02 05:56 | Hematology/Oncology Prog Note ---
Hematology/Onc Progress Note Date of Service Sep 02, 2016. Diagnoses mesothelioma Pneumonitis/ pneumonia/ Medications Medications Administered Medications (Trade) Dose Ordered Sig/Carol Route Start Time Stop Time Status Last Admin Dose Admin Levalbuterol (Xopenex 1.25MG/ 0.5ML Neb) 1.25 mg NOW STAT INH 08/30/16 20:56 08/30/16 21:01 DC 08/30/16 21:12 1.25 MG Ipratropium [place] 0.5 mg 0.5 mg NOW STAT INH 08/30/16 20:56 08/30/16 21:01 DC 08/30/16 21:12 0.5 MG Sodium Chloride (Nss 1000ml) 1,000 ml @ 200 mls/hr Q5H STAT IV 08/30/16 21:00 08/31/16 01:02 DC 08/30/16 21:00 200 MLS/HR Piperacillin Sod/ Tazobactam Sod 4.5 gm 4.5 gm NOW STAT IV 08/30/16 21:52 08/30/16 21:54 DC 08/30/16 22:23 4.5 GM Levofloxacin 750 mg/Prmx 150 ml @ 100 mls/hr DAILY@0100 IV 08/31/16 01:01 08/31/16 03:01 DC 08/31/16 02:00 100 MLS/HR Piperacillin Sod/ Tazobactam Sod 3.375 gm/Dextrose 115 ml @ 28.75 mls/ hr Q8H IV 08/31/16 04:00 09/01/16 10:13 DC 09/01/16 04:16 28.75 MLS/HR Levofloxacin/Prmx (Levaquin / D5W/ Premixed D5W) 150 ml @ 100 mls/hr Q48H IV 09/02/16 02:00 09/07/16 02:30 09/02/16 02:07 100 MLS/HR Dorzolamide/ Timolol (Cosopt Op Soln) 1 drops BID OPR 08/31/16 09:00 09/30/16 08:59 09/01/16 20:17 1 DROPS Losartan Potassium (coZAAR TAB) 100 mg QAM PO 08/31/16 09:00 09/30/16 08:59 09/01/16 09:10 100 MG Cholecalciferol (Vitamin D Tab) 2,000 inter.unit QAM PO 08/31/16 09:00 09/30/16 08:59 09/01/16 09:11 2,000 INTER.UNIT Pantoprazole Sodium (Protonix Tab) 40 mg DAILYBB PO 08/31/16 06:00 09/30/16 05:59 09/01/16 06:26 40 MG Magnesium Oxide (Mag-Ox Tab) 400 mg QPM PO 08/31/16 21:00 09/30/16 20:59 09/01/16 20:18 400 MG Fluoxetine HCl (Prozac Cap) 20 mg QAM PO 08/31/16 09:00 09/30/16 08:59 09/01/16 09:10 20 MG Albuterol/ Ipratropium (Duoneb) 3 ml QIDR INH 08/31/16 08:00 09/01/16 10:23 DC 09/01/16 07:30 3 ML Enoxaparin Sodium (Lovenox Inj) 40 mg QAM SQ 08/31/16 09:00 09/30/16 08:59 09/01/16 09:11 40 MG Venlafaxine HCl 37.5 mg 37.5 mg Q3D@2100 PO 08/31/16 21:00 09/30/16 20:59 08/31/16 20:29 37.5 MG Furosemide 40 mg/ Syringe 4 ml @ 4 mls/min NOW STAT IV 09/01/16 01:21 09/01/16 01:22 DC 09/01/16 01:27 4 MLS/MIN Methylprednisolone Sodium Succinate 125 mg/Syringe 2 ml @ 1.5 mls/min TODAY@0730 ONCE IV 09/01/16 07:30 09/01/16 07:36 DC 09/01/16 07:03 1.5 MLS/MIN Vancomycin HCl 1300 mg/Sodium Chloride 276 ml @ 125 mls/hr Q18H IV 09/02/16 04:00 09/09/16 03:59 09/02/16 03:24 125 MLS/HR Vancomycin HCl 2100 mg/Sodium Chloride 542 ml @ 200 mls/hr TODAY@0800 ONCE IV 09/01/16 08:00 09/01/16 10:42 DC 09/01/16 10:32 200 MLS/HR Potassium Chloride 10 meq/ Prmx 100 ml @ 100 mls/hr Q1H IV 09/01/16 08:15 09/01/16 11:14 DC 09/01/16 12:53 100 MLS/HR Magnesium Sulfate 1 gm/Prmx 100 ml @ 100 mls/hr TODAY@0845 ONCE IV 09/01/16 08:45 09/01/16 09:44 DC 09/01/16 09:09 100 MLS/HR Methylprednisolone Sodium Succinate 40 mg/Syringe 0.64 ml @ 1.5 mls/min Q8 IV 09/01/16 14:00 10/01/16 13:59 09/01/16 20:18 1.5 MLS/MIN Piperacillin Sod/ Tazobactam Sod/ Dextrose (Zosyn Iv/D5 100ml) 120 ml @ 30 mls/hr Q8H IV 09/01/16 12:00 09/06/16 23:59 09/02/16 04:11 30 MLS/HR Albuterol/ Ipratropium (Duoneb) 3 ml Q4R INH 09/01/16 12:00 10/01/16 11:59 09/02/16 03:42 3 ML Subjective She remains afebrile. She feels that she is breathing slightly better. Staff reflect that her oxygenation seems to be better rest however she does demonstrate O2 desaturation with most any movement Review of Systems: Constitutional: Negative for night sweats, or fever Eyes: Negative for event change of vision ENT: Negative for epistaxis, nasal discharge, sore throat, or deafness Cardiovascular: Negative for chest pain, palpitations, dizziness, diaphoresis Respiratory: Negative for new shortness of breath but remains continually short of breath. Negative for hemoptysis Gastrointestinal: Negative for diarrhea, hematemesis, melena, nausea, vomiting , or dyspepsia Integumentary (skin): Negative for rash or jaundice discoloration Genitourinary: Negative for urinary frequency, hematuria, or dysuria Neurological: Negative for weakness, seizure activity, headache, or dizziness Lymphatic/Hematologic: Negative for petechiae, bleeding or new adenopathy Musculoskeletal: Negative for new joint or back pain Allergic/Immunologic: Negative for unusual rash or pruritis. Vital Signs Vital Signs Past 12 Hours Date Time Temp Pulse Resp B/P Pulse Ox O2 Delivery O2 Flow Rate FiO2 09/02/16 04:00 High Flow Oxygen 45.0 90 09/02/16 03:58 36.6 77 24 121/60 95 45.0 90 09/02/16 03:43 77 20 95 Nasal Cannula 87 09/02/16 02:58 58 23 111/52 94 45.0 90 09/02/16 01:58 52 26 119/57 94 High Flow Oxygen 45.0 90 09/02/16 00:58 57 23 112/53 94 High Flow Oxygen 45.0 90 09/02/16 00:01 High Flow Oxygen 45.0 90 09/01/16 23:58 36.4 54 23 113/51 96 High Flow Oxygen 45.0 90 09/01/16 23:23 54 20 93 Nasal Cannula 90 09/01/16 22:58 54 24 106/58 93 High Flow Oxygen 45.0 90 09/01/16 21:58 56 22 111/48 95 High Flow Oxygen 45.0 90 09/01/16 20:58 55 24 113/58 95 High Flow Oxygen 45.0 90 09/01/16 20:00 97 High Flow Oxygen 45.0 90 09/01/16 19:58 36.6 59 23 122/55 99 High Flow Oxygen 45.0 90 09/01/16 19:29 58 20 98 Nasal Cannula 90 09/01/16 18:00 74 24 130/69 93 High Flow Oxygen 45.0 90 Physical Exam Constitutional: vitals are stable. Eyes: Eyes are VIOLA EOMI without conjuctival erythema or icterus. ENT: External examination was negative for masses. Neck: Negative for masses or palpable thyromegaly Respiratory: Lung sounds were generally clear but with decreased sounds bilaterally Cardiovascular: Heart was RRR without significant murmur, gallops aoe rubs Gastrointestinal: No palpable hepatic or splenomegaly. The abdomen was soft with normal bowel sounds. Lymphatic system: there was no palpable peripheral lymphadenopathy Musculoskeletal System: The musculoskeletal system seemed concordant with age. Skin: The skin was negative for jaundice. Neurologic exam: The exam was negative for any focal findings. Deep tendon reflexes were equal and symmetrical. Psychiatric exam: Was essentially negative with normal mood and effect. Extremities: Negative for significant or tender edema Assessment & Plan Mesothelioma Pneumonia/radiation pneumonitis She seems to be clinically stable. Remains afebrile. Antibiotics and parenteral steroids are ongoing.
[2016-09-02 06:11] LABS: COMPLETE YES; HEMATOCRIT 28.5 % (37-47); IG% 0.6 %; LYMPH % 6.6 %; LYMPH ABS # 0.44 K/uL (1.2-3.4); MEAN CELL VOLUME 89.9 fL (80-100); MEAN CORPUSCULAR HEMOGLOBIN 29.7 pg (25-34); MEAN PLATELET VOLUME 9.1 fL (7.4-10.4); MONO % 4.9 %; NEUT % 87.9 %; PLATELET COUNT 106 K/uL (130-400); RED BLOOD COUNT 3.17 M/uL (4.2-5.4); WHITE BLOOD COUNT 6.71 K/uL (4.8-10.8)
[2016-09-02] MEDS: METHYLPREDNISOLONE IV 40 MG in SYRINGE 0 ML IV SCH (06:12)
[2016-09-02] MEDS: PANTOprazole SOD 40 MG TAB PO SCH (06:12)
[2016-09-02 06:30] LABS: BUN/CREATININE RATIO 29.7 (10-20); CREATININE 0.91 mg/dl (0.60-1.20); POTASSIUM 3.5 mmol/L (3.5-5.1)
--- NOTE | 2016-09-02 08:27 | DIAGNOSTIC IMAGING REPORT ---
SINGLE VIEW CHEST CLINICAL HISTORY: Hypoxia. Mesothelioma. FINDINGS: An AP, portable, upright chest radiograph is compared to study dated 09/01/16 and correlated with chest CT dated 08/30/16. The examination is degraded by portable technique and patient rotation. The heart is mildly enlarged and there is atherosclerotic calcification of the thoracic aorta. There is no clear evidence of congestive failure. There is consolidative change seen throughout the left lower lung with elevation of the right hemidiaphragm. Milder patchy airspace opacities are noted throughout the left lung. A small left pleural effusion is identified. No pneumothorax is seen. The skeletal structures are osteopenic. The bony thorax is grossly intact. Cholecystectomy clips are noted. IMPRESSION: 1. There is dense consolidation in the right lower lung with elevation of the right hemidiaphragm. This is similar to previous. 2. Additional patchy airspace opacities are present throughout the left lung, and there is a trace left pleural effusion. Electronically signed by: Josué Peralta M.D. 09/02/2016 8:25 AM Dictated Date/Time: 09/02/2016 8:22 AM
--- NOTE | 2016-09-02 08:37 | PULMONARY PROGRESS NOTE ---
DATE: 09/02/2016 DATE: 09/02/2016. HISTORY OF PRESENT ILLNESS: The patient is comfortable receiving a breathing treatment this morning. She states she is feeling better. She has very poor appetite, is eating very little. She denies cough or chest pain. She slept fairly well. Respiratory rate is generally in the 20-26 range. Oxygen saturation is 92% on 90% FiO2 and she has been afebrile. I\T\O 13:58 in, 2525 out. Weight 85.2 kilogram. She was 85 kilograms on the 8th. Nurse's notes suggest she had a fairly good night last night, still has severe dyspnea with exertion with oxygen saturation 97%, dropping in 85% when awake and talking. Catheter is draining clear urine. OBJECTIVE: HEAD, EYES, EARS, NOSE, AND THROAT: Unremarkable. No thrush is noted. No adenopathy. No subcutaneous emphysema. HEART: Regular rate and rhythm. No murmurs are heard. LUNGS: Reveal coarse breath sounds bilaterally. Few crackles at the right base posterior. ABDOMEN: Soft, nontender. EXTREMITIES: She has no cyanosis, clubbing or edema. LABORATORY DATA: White count is down from 12,000 to 6.7, hemoglobin 8.4, hematocrit 28.5% with a platelet count slightly reduced at 106,000. It was 178,000 on the 8th. Blood gas from yesterday noted. BUN is 27, glucose 155. MRSA DNA surveillance screen is negative. Blood cultures are negative so far. Chest film yesterday revealed changes consistent with infiltrates bilaterally with possible heart failure as well. Echocardiogram reveals normal left ventricular size with class 1 diastolic dysfunction, LVEF of 50-55%, normal right atrium and right ventricle with normal right ventricular function. No significant pulmonary stenosis or pulmonary regurgitation is noted. No effusions are noted. Mild to moderate annular calcifications of the mitral valve were noted with no significant mitral insufficiency. Aortic valve was trileaflet, no abnormalities noted. IMPRESSION: 1. Bilateral pulmonary infiltrates. I still think with an elevated white count and her presentation this is most likely an infectious process. Radiation pneumonitis is a possibility as well although it usually occurs fairly quickly during the time of radiation or shortly thereafter. She is several months out from radiation therapy according to her daughter with whom I spoke yesterday. Nonetheless, certainly is a possibility as well. 2. Mesothelioma with a possible extension into the abdominal cavity. 3. Status post VATS procedure spring of last year with Dr. Fortune. RECOMMENDATIONS: 1. Continue with her present medications. Continue with the methylprednisolone. 2. Good DVT prophylaxis. Increase activity. Follow the platelet count carefully. 3. Continue with her present inhalers to enhance mucociliary clearance. At this point, she seems to be stable.
[2016-09-02 09:15] LABS: BUN/CREATININE RATIO 28.4 (10-20); CREATININE 0.99 mg/dl (0.60-1.20); POTASSIUM 3.3 mmol/L (3.5-5.1)
[2016-09-02] MEDS: ENOXAPARIN 40 MG/0.4 ML SYR SQ SCH (09:30)
[2016-09-02] MEDS: CHOLECALCIFEROL 1000 INTER.UNIT TAB PO SCH (09:31)
[2016-09-02] MEDS: FLUOXETINE HCL 20 MG CAP PO SCH (09:31)
[2016-09-02] MEDS: LOSARTAN POTASSIUM 50 MG TAB PO SCH (09:32)
[2016-09-02] MEDS: DORZOLAMIDE/TIMOLOL 22.3/6.8MG/ML 10 ML BTL OPR SCH ×2 (09:32→21:08)
[2016-09-02] MEDS: BOOST VANILLA PUDDING CUP PO SCH ×2 (11:47→16:04)
[2016-09-02] MEDS: BOOST VANILLA PO SCH ×4 (11:47→15:59)
[2016-09-02] MEDS ORDERED: MAGNESIUM SULFATE 1GM / D5W 1 GM in PREMIXED IN D5W 100 ML IV ONE (12:00)
[2016-09-02] MEDS ORDERED: POTASSIUM CHLORIDE 10 MEQ TABCR PO ONE (12:00)
--- NOTE | 2016-09-02 12:33 | CRITICAL CARE PROGRESS NOTE ---
DATE: 09/02/2016 There were no acute events overnight. The patient reports that she feels a little bit better today and that she rested relatively well last night. She remains on high-flow nasal cannula 45%, 90% FiO2. She is not coughing and she feels like her appetite is a little bit better. She is taking some p.o. today. She denies chest pain, nausea, vomiting, diarrhea. She is still short of breath with any little bit of activity. PHYSICAL EXAMINATION: VITAL SIGNS: Maximum temperature 36.6, heart rate 50s-70s, respiratory rate 21-26, blood pressure 104-119/50s to 60s. Oxygen saturation 94%. 24-hour fluid balance negative 1.1 liters. Last bowel movement was yesterday. GENERAL: She is awake, alert, in mild distress when she is talking. NEUROLOGIC: She is able to follow commands and move all 4 extremities. LUNGS: Coarse with decreased breath sounds in the right base and a few crackles there. No rhonchi or wheezes. HEART: Regular rate and rhythm. ABDOMEN: Obese, soft, nondistended, nontender. Hypoactive bowel sounds. EXTREMITIES: Warm, trace edema. LABORATORY DATA: Sodium 139, potassium 3.3, chloride 102, CO2 of 25, BUN 28, creatinine 0.99, blood sugar 156. White blood cell count 6.71, hemoglobin 9.4, hematocrit 28.5, platelets 106. Blood cultures 08/30/2016 no growth to date. Portable chest x-ray from the morning was reviewed and shows a right lower lobe infiltrate and elevation of the right hemidiaphragm. Patchy bilateral airspace opacities, left greater than right. MEDICATIONS: Tylenol, Maalox, albuterol, vitamin D, Cosopt ophthalmic solution, Lovenox, Prozac, Levaquin day 3, Cozaar, milk of magnesia, magnesium oxide, Solu-Medrol, Zofran, Protonix, Zosyn day 3, vancomycin day 2, Effexor ER. IMPRESSION: 1. Acute hypoxemic respiratory failure secondary to pneumonia, possibly in combination with radiation pneumonitis. She still is requiring high-flow nasal cannula, but her work of breathing is better today and she is overall very sick but stable from an oxygenation standpoint compared to yesterday. She continues to receive bronchodilators and Solu-Medrol. 2. Mesothelioma which may be metastatic to the omentum, status post radiation and chemotherapy at [facility] in [place]. 3. Pneumonia, on Levaquin, Zosyn and vancomycin. 4. Hypokalemia and hypomagnesemia. 5. History of depression. 6. History of vitamin D deficiency. 7. Glaucoma. PLAN: 1. Neurologic: Discontinue Ambien and avoid sedatives if at all possible. 2. Pulmonary: Continue bronchodilators, Solu-Medrol, and attempt to wean oxygen. Consider flutter valve or incentive spirometry. I do not see the need to diurese her any further presently. 3. Cardiovascular: Continue Cozaar for history of hypertension. 4. GI: Continue diet. Hold the diet if she worsens at all. I have ordered dietary supplements. 5. Infectious Disease: Await further culture data. Should she spike a fever or worsen, add voriconazole and consider bronchoscopy. 6. Renal: No acute active issues. 7. Prophylaxis: Continue Lovenox as well as proton pump inhibitor. Overall, she seems a little bit better compared to yesterday. She is certainly in better spirits. I will update her daughters when I see them again today. TRAV
[2016-09-02] MEDS: METHYLPREDNISOLONE IV 60 MG in SYRINGE 0 ML IV SCH ×2 (13:57→22:20)
--- NOTE | 2016-09-02 16:42 | Progress Note ---
Subjective Date of Service: Sep 02, 2016. Subjective pt looks better, cxr without worsening,cough with no sputum production Problem List Medical Problems: (1) Dehydration Status: Acute (2) Hypoxia Status: Acute (3) Hypoxia Status: Acute (4) Pneumonia Status: Acute (5) Pneumonitis Status: Acute (6) UTI (urinary tract infection) Status: Acute Review of Systems Constitutional: + fatigue, + weakness, No chills, No fever Respiratory: + cough, + dyspnea at rest, + dyspnea on exertion, + shortness of breath, No sputum Cardiac: No chest pain, No edema Abdomen: No diarrhea, No nausea, No pain, No vomiting Female : No dysuria, No urinary frequency Psychiatric: No anhedonism, No depression symptoms Objective Vital Signs Date Time Temp Pulse Resp B/P Pulse Ox O2 Delivery O2 Flow Rate FiO2 09/02/16 16:00 High Flow Oxygen 45.0 90 09/02/16 14:46 70 24 96 Nasal Cannula 85 09/02/16 14:00 36.7 82 23 106/61 87 Free Flow/Blowby 45.0 90 09/02/16 12:00 36.7 63 22 116/52 90 Free Flow/Blowby 45.0 90 09/02/16 12:00 90 Free Flow/Blowby 45.0 90 09/02/16 10:44 62 20 96 Nasal Cannula 89 09/02/16 10:00 36.7 61 19 113/62 97 Free Flow/Blowby 45.0 90 09/02/16 08:00 90 Free Flow/Blowby 45.0 90 09/02/16 08:00 36.7 57 15 120/73 90 Free Flow/Blowby 45.0 90 09/02/16 07:42 73 20 96 Nasal Cannula 88 09/02/16 05:58 63 21 104/61 84 09/02/16 04:58 56 26 117/60 92 09/02/16 04:00 High Flow Oxygen 45.0 90 09/02/16 03:58 36.6 77 24 121/60 95 45.0 90 09/02/16 03:43 77 20 95 Nasal Cannula 87 09/02/16 02:58 58 23 111/52 94 45.0 90 09/02/16 01:58 52 26 119/57 94 High Flow Oxygen 45.0 90 09/02/16 00:58 57 23 112/53 94 High Flow Oxygen 45.0 90 09/02/16 00:01 High Flow Oxygen 45.0 90 09/01/16 23:58 36.4 54 23 113/51 96 High Flow Oxygen 45.0 90 09/01/16 23:23 54 20 93 Nasal Cannula 90 09/01/16 22:58 54 24 106/58 93 High Flow Oxygen 45.0 90 09/01/16 21:58 56 22 111/48 95 High Flow Oxygen 45.0 90 09/01/16 20:58 55 24 113/58 95 High Flow Oxygen 45.0 90 09/01/16 20:00 97 High Flow Oxygen 45.0 90 09/01/16 19:58 36.6 59 23 122/55 99 High Flow Oxygen 45.0 90 09/01/16 19:29 58 20 98 Nasal Cannula 90 09/01/16 18:00 74 24 130/69 93 High Flow Oxygen 45.0 90 Physical Exam General Appearance: WD/WN, + mild distress Neck: supple, no JVD Respiratory/Chest: + decreased breath sounds, + accessory muscle use, + rales Cardiovascular: regular rate, rhythm, no murmur Abdomen: normal bowel sounds, non tender, soft Extremities: no calf tenderness, + pedal edema (trace) Neurologic/Psychiatric: alert, oriented x 3 Laboratory Results Last 24 Hours Test 09/01/16 18:17 09/02/16 00:10 09/02/16 00:46 09/02/16 06:00 Bedside Glucose 159 mg/dl 161 mg/dl Troponin I < 0.015 ng/ml White Blood Count 6.71 K/uL Red Blood Count 3.17 M/uL Hemoglobin 9.4 g/dL Hematocrit 28.5 % Mean Corpuscular Volume 89.9 fL Mean Corpuscular Hemoglobin 29.7 pg Mean Corpuscular Hemoglobin Concent 33.0 g/dl Platelet Count 106 K/uL Mean Platelet Volume 9.1 fL Neutrophils (%) (Auto) 87.9 % Lymphocytes (%) (Auto) 6.6 % Monocytes (%) (Auto) 4.9 % Eosinophils (%) (Auto) 0.0 % Basophils (%) (Auto) 0.0 % Neutrophils # (Auto) 5.90 K/uL Lymphocytes # (Auto) 0.44 K/uL Monocytes # (Auto) 0.33 K/uL Eosinophils # (Auto) 0.00 K/uL Basophils # (Auto) 0.00 K/uL RDW Standard Deviation 46.7 fL RDW Coefficient of Variation 14.1 % Immature Granulocyte % (Auto) 0.6 % Immature Granulocyte # (Auto) 0.04 K/uL Sodium Level 139 mmol/L Potassium Level 3.5 mmol/L Chloride Level 104 mmol/L Carbon Dioxide Level 25 mmol/L Anion Gap 10.0 mmol/L Blood Urea Nitrogen 27 mg/dl Creatinine 0.91 mg/dl Est Creatinine Clear Calc Drug Dose 47.8 ml/min Estimated GFR () 69.1 Estimated GFR (Non- 59.6 BUN/Creatinine Ratio 29.7 Random Glucose 155 mg/dl Calcium Level 9.0 mg/dl Test 09/02/16 06:29 09/02/16 08:15 09/02/16 11:55 Bedside Glucose 150 mg/dl 180 mg/dl Sodium Level 139 mmol/L Potassium Level 3.3 mmol/L Chloride Level 102 mmol/L Carbon Dioxide Level 25 mmol/L Anion Gap 12.0 mmol/L Blood Urea Nitrogen 28 mg/dl Creatinine 0.99 mg/dl Est Creatinine Clear Calc Drug Dose 43.9 ml/min Estimated GFR () 62.4 Estimated GFR (Non- 53.8 BUN/Creatinine Ratio 28.4 Random Glucose 156 mg/dl Calcium Level 9.0 mg/dl Magnesium Level 2.1 mg/dl Assessment and Plan 81 F with history of mesothelioma, presents with acute hypoxic respiratory failure, maybe infectious or radiation pneumonitis, there is some question of progression of mesothelioma pneumonia, concern for gram negative or mrsa, expanded to triple coverage, vancomycin, levaquin and zosyn, holding on antifungals per ID recommendation radiation pneumonitis, started on steroids requiring maximal oxygen supplementation Mesothelioma, is followed up by [facility] Depression , significant, on prozac and Effexor Htn, Cozaar
[2016-09-02] MEDS ORDERED: NURSING VERBAL MED ORDER ONE ×2 (20:15→20:45)
[2016-09-02] MEDS ORDERED: LORAZEPAM 0.5 MG TAB PO PRN (20:45)
[2016-09-02] MEDS: MAGNESIUM OXIDE 400 MG TAB PO SCH (21:07)
[2016-09-02] MEDS: LACTOBACILLUS ACIDOPHILUS (FLORANEX) TAB PO SCH (21:07)
[2016-09-03] VITALS (19 sets, daily range): BP systolic 103–144; BP diastolic 47–78; PULSE 56–79; TEMP 36.4–36.6; O2SAT 77–98
[2016-09-03] MEDS ORDERED: ALBUMIN 25% 50 ML with FUROSEMIDE INJ 40 MG IV STA ×2 (02:25)
[2016-09-03] MEDS: ALBUT/IPRATROP 3MG/0.5MG NEB 3 ML VIAL INH SCH ×5 (03:08→23:18)
[2016-09-03] MEDS: PIPERACILL/TAZOBAC IV 4.5 GM in DEXTROSE 5% 100ML IV SCH ×3 (04:35→20:10)
[2016-09-03] MEDS: METHYLPREDNISOLONE IV 60 MG in SYRINGE 0 ML IV SCH ×3 (06:24→21:13)
[2016-09-03] MEDS: PANTOprazole SOD 40 MG TAB PO SCH (06:24)
[2016-09-03 06:26] LABS: COMPLETE YES; HEMATOCRIT 30.6 % (37-47); IG% 0.3 %; LYMPH % 4.5 %; LYMPH ABS # 0.51 K/uL (1.2-3.4); MEAN CELL VOLUME 90.5 fL (80-100); MEAN CORPUSCULAR HEMOGLOBIN 29.6 pg (25-34); MEAN CORPUSCULAR HGB CONC 32.7 g/dl (32-36); MEAN PLATELET VOLUME 9.7 fL (7.4-10.4); NEUT % 91.2 %; PLATELET COUNT 133 K/uL (130-400); RED BLOOD COUNT 3.38 M/uL (4.2-5.4); WHITE BLOOD COUNT 11.28 K/uL (4.8-10.8)
[2016-09-03 07:12] LABS: MAGNESIUM 2.4 mg/dl (1.8-2.4); PHOSPHORUS 2.2 mg/dl (2.5-4.9)
[2016-09-03] MEDS: BOOST VANILLA PUDDING CUP PO SCH ×3 (07:15→16:13)
--- NOTE | 2016-09-03 07:22 | DIAGNOSTIC IMAGING REPORT ---
CHEST ONE VIEW PORTABLE CLINICAL HISTORY: Hypoxemia. Pneumonia. COMPARISON STUDY: Chest radiograph September 03, 2016 at 2:00 AM. FINDINGS: There is no pneumothorax. Right hemithorax volume loss is again noted. A right pleural effusion with possible pleural thickening remains unchanged. Left lung interstitial thickening and airspace opacities are noted. Interstitial thickening within the right lung is noted. IMPRESSION: 1. Persistent interstitial thickening and bilateral opacities which may reflect pulmonary edema or an infectious process. 2. No significant change in right hemithorax volume loss with right pleural effusion/pleural thickening. Electronically signed by: Angelito Mehta M.D. 09/03/2016 7:20 AM Dictated Date/Time: 09/03/2016 7:18 AM
--- NOTE | 2016-09-03 07:51 | Progress Note ---
Subjective Date of Service: Sep 03, 2016. Subjective had coughing exacerbation last night, now has recovered. still with high flow oxygen. Problem List Medical Problems: (1) Dehydration Status: Acute (2) Hypoxia Status: Acute (3) Hypoxia Status: Acute (4) Pneumonia Status: Acute (5) Pneumonitis Status: Acute (6) UTI (urinary tract infection) Status: Acute Review of Systems Constitutional: No chills, No fever Respiratory: + cough, + dyspnea at rest, + dyspnea on exertion, + shortness of breath, No sputum Cardiac: No chest pain, No edema Abdomen: No diarrhea, No pain, No vomiting Female : No dysuria, No urinary frequency Psychiatric: No anhedonism, No depression symptoms Objective Vital Signs Date Time Temp Pulse Resp B/P Pulse Ox O2 Delivery O2 Flow Rate FiO2 09/03/16 06:03 79 24 115/54 77 09/03/16 04:58 60 25 131/71 95 09/03/16 04:50 96 Nasal Cannula 45.0 90 09/03/16 03:58 61 25 144/71 92 09/03/16 02:59 66 15 126/70 94 09/03/16 01:59 68 26 103/65 96 09/03/16 00:58 62 30 121/66 89 09/03/16 00:22 96 Nasal Cannula 45.0 90 09/02/16 23:58 36.6 70 19 131/58 89 09/02/16 23:52 74 24 95 Nasal Cannula 89 09/02/16 22:59 64 22 102/69 96 High Flow Oxygen 90 09/02/16 22:59 64 22 102/69 96 09/02/16 21:59 36.6 69 26 130/41 81 High Flow Oxygen 90 09/02/16 20:58 61 19 114/51 98 High Flow Oxygen 90 09/02/16 20:08 96 Nasal Cannula 45.0 90 09/02/16 19:59 36.6 83 22 116/63 84 High Flow Oxygen 90 09/02/16 19:33 72 24 95 Nasal Cannula 87 09/02/16 19:02 65 22 113/54 93 High Flow Oxygen 90 09/02/16 18:13 64 21 105/73 93 High Flow Oxygen 09/02/16 17:49 36.6 09/02/16 16:58 73 21 129/53 83 09/02/16 16:00 76 25 87 09/02/16 16:00 High Flow Oxygen 45.0 90 09/02/16 14:46 70 24 96 Nasal Cannula 85 09/02/16 14:00 36.7 82 23 106/61 87 Free Flow/Blowby 45.0 90 09/02/16 12:00 36.7 63 22 116/52 90 Free Flow/Blowby 45.0 90 09/02/16 12:00 90 Free Flow/Blowby 45.0 90 09/02/16 10:44 62 20 96 Nasal Cannula 89 09/02/16 10:00 36.7 61 19 113/62 97 Free Flow/Blowby 45.0 90 09/02/16 08:00 90 Free Flow/Blowby 45.0 90 09/02/16 08:00 36.7 57 15 120/73 90 Free Flow/Blowby 45.0 90 Physical Exam General Appearance: WD/WN, + mild distress Neck: supple, no JVD Respiratory/Chest: + decreased breath sounds, + accessory muscle use, + rales Cardiovascular: regular rate, rhythm, no murmur Abdomen: normal bowel sounds, non tender, soft Extremities: no pedal edema, no calf tenderness Neurologic/Psychiatric: alert, oriented x 3 Laboratory Results Last 24 Hours Test 09/02/16 08:15 09/02/16 11:55 09/03/16 06:01 09/03/16 06:54 Sodium Level 139 mmol/L Potassium Level 3.3 mmol/L Chloride Level 102 mmol/L Carbon Dioxide Level 25 mmol/L Anion Gap 12.0 mmol/L Blood Urea Nitrogen 28 mg/dl Creatinine 0.99 mg/dl Est Creatinine Clear Calc Drug Dose 43.9 ml/min Estimated GFR () 62.4 Estimated GFR (Non- 53.8 BUN/Creatinine Ratio 28.4 Random Glucose 156 mg/dl Calcium Level 9.0 mg/dl Magnesium Level 2.1 mg/dl 2.4 mg/dl Bedside Glucose 180 mg/dl White Blood Count 11.28 K/uL Red Blood Count 3.38 M/uL Hemoglobin 10.0 g/dL Hematocrit 30.6 % Mean Corpuscular Volume 90.5 fL Mean Corpuscular Hemoglobin 29.6 pg Mean Corpuscular Hemoglobin Concent 32.7 g/dl Platelet Count 133 K/uL Mean Platelet Volume 9.7 fL Neutrophils (%) (Auto) 91.2 % Lymphocytes (%) (Auto) 4.5 % Monocytes (%) (Auto) 4.0 % Eosinophils (%) (Auto) 0.0 % Basophils (%) (Auto) 0.0 % Neutrophils # (Auto) 10.29 K/uL Lymphocytes # (Auto) 0.51 K/uL Monocytes # (Auto) 0.45 K/uL Eosinophils # (Auto) 0.00 K/uL Basophils # (Auto) 0.00 K/uL RDW Standard Deviation 46.5 fL RDW Coefficient of Variation 14.2 % Immature Granulocyte % (Auto) 0.3 % Immature Granulocyte # (Auto) 0.03 K/uL Phosphorus Level 2.2 mg/dl Assessment and Plan 81 F with history of mesothelioma, presents with acute hypoxic respiratory failure, maybe infectious or radiation pneumonitis, there is some question of progression of mesothelioma, her course is more consistent with radiation pneumonitis, there are some questions if lung biopsy, once less oxygen requirement will be helpful pneumonia, concern for gram negative or mrsa, expanded to triple coverage, vancomycin, levaquin and zosyn, holding on antifungals per ID recommendation radiation pneumonitis, started on steroids requiring maximal oxygen supplementation Mesothelioma, is followed up by [facility] Depression , significant, on prozac and Effexor Htn, Cozaar
--- NOTE | 2016-09-03 08:12 | PULMONARY PROGRESS NOTE ---
DATE: 09/03/2016 The patient is comfortable this morning. She did have some episodes of hypoxemia last night with no change in her respiratory rate. She denies significant sputum production. She has not had any chest pain. Her respiratory rate is down to 20 now. She did have a chest x-ray that shows a very light film, but continued mainly interstitial infiltrates bilaterally with right hemidiaphragm elevation, probable thickening or small pleural effusion on the right side. There is some volume loss on the right side as well. She denies any nausea, vomiting, has not had any diarrhea. She is on high flow O2 at the present time, tolerating antimicrobial agents well. According to the nurses' notes, otherwise, she had a fairly good night. Dr. Kerr was called and gave her a dose of Lasix, and presently she seems to be stable. Her respiratory rate is down to 20 now. PHYSICAL EXAMINATION: VITAL SIGNS: Blood pressure 115/54, oxygen saturation is 95%. It was down to 77% at 0603 hours and her pulse is 70 and regular. She looks comfortable and feels comfortable. Her I O is 1753 in and 715 out yesterday and she had 1400 mL out since the Lasix was given. Her weight today is pending. It was 85.2 kilograms yesterday. MEDICATIONS: Reviewed. HEENT: Posterior pharynx looks good with no evidence of thrush. NECK: There is no neck vein distention or HJR. HEART: Has a regular rate and rhythm. I do not detect any murmurs. LUNGS: Reveal coarse breath sounds bilaterally with few crackles at the right base, but I think the right base is improved. The coarse breath sounds have persisted. No crackles or rales are noted. ABDOMEN: Soft, nontender. EXTREMITIES: She has no cyanosis, clubbing or edema and there is no clinical evidence of DVT. The echocardiogram revealed normal right ventricular structures with normal left atrial size, and LVEF of 50-55% with grade I diastolic dysfunction. No significant aortic stenosis was noted. Her white count is 11.28, hemoglobin 10 with a platelet count of 133,000, which is improved. The chemistry profile is pending. Magnesium was 2.4 with phosphorus of 2.2. MRSA DNA surveillance screen was negative. Blood cultures are unremarkable. IMPRESSION: 1. Respiratory insufficiency with profound hypoxemia related to bilateral pneumonitis. 2. Mesothelioma of the right hemithorax, status post video-assisted thorascopic surgery procedure with chemo and radiation and possible radiation-induced right lower lobe pneumonitis. RECOMMENDATIONS: 1. At this point, I would continue with all of her antimicrobial agents and her present medications. 2. Continue on high flow O2. She may need noninvasive ventilation for increase in respiratory rate, but presently she seems to be quite stable. She should certainly be maintained in the intensive care unit with careful evaluation on an hourly basis. At this point I would continue on the DuoNeb. Perhaps just in the morning and the evening to enhance mucociliary clearance and continue on SCDs and Lovenox. Dr. Valverde will be on for this coming week and I will ask him to evaluate the patient and continue to follow along with you during her hospital stay. TRAV
--- NOTE | 2016-09-03 08:14 | DIAGNOSTIC IMAGING REPORT ---
CHEST ONE VIEW PORTABLE CLINICAL HISTORY: Altered mental status. COMPARISON STUDY: Chest radiograph September 02, 2011. FINDINGS: Diffuse interstitial thickening persists, slightly greater within the right lung. There is right hemithorax volume loss with right pleural fluid/thickening which is unchanged. Cardiac size is stable. There is no pneumothorax. There are cholecystectomy clips. IMPRESSION: 1. Persistent interstitial thickening which may reflect pulmonary edema or pneumonia. 2. No change in right hemithorax volume loss with suspected pleural thickening/small right pleural effusion. Electronically signed by: Angelito Mehta M.D. 09/03/2016 8:12 AM Dictated Date/Time: 09/03/2016 8:12 AM
[2016-09-03] MEDS: BOOST VANILLA PO SCH ×6 (08:17→16:26)
[2016-09-03] MEDS: LOSARTAN POTASSIUM 50 MG TAB PO SCH (08:42)
[2016-09-03] MEDS: DORZOLAMIDE/TIMOLOL 22.3/6.8MG/ML 10 ML BTL OPR SCH ×2 (08:42→21:14)
[2016-09-03] MEDS: LACTOBACILLUS ACIDOPHILUS (FLORANEX) TAB PO SCH ×4 (08:43→21:14)
[2016-09-03] MEDS: FLUOXETINE HCL 20 MG CAP PO SCH (08:43)
[2016-09-03] MEDS: CHOLECALCIFEROL 1000 INTER.UNIT TAB PO SCH (08:43)
[2016-09-03] MEDS: ENOXAPARIN 40 MG/0.4 ML SYR SQ SCH (08:44)
[2016-09-03 10:03] LABS: BUN/CREATININE RATIO 31.5 (10-20); CALCIUM 9.2 mg/dl (8.5-10.1); CREATININE 1.1 mg/dl (0.60-1.20); POTASSIUM 3.4 mmol/L (3.5-5.1)
[2016-09-03] MEDS ORDERED: MAGNESIUM SULFATE 1GM / D5W 1 GM in PREMIXED IN D5W 100 ML IV SCH (10:15)
[2016-09-03] MEDS ORDERED: POTASSIUM PHOS 3 MMOL/1 ML INFUSION IV STA (10:23)
[2016-09-03] MEDS ORDERED: PHARMACY GLYCEMIC MGMT CONSULT PRN (10:53)
[2016-09-03] MEDS ORDERED: POTASSIUM PHOSPHATE INJ 21 MMOL in SODIUM CHLORIDE 0.9% 500ML 500 ML IV ONE (11:15)
[2016-09-03] MEDS ORDERED: GLUCOSE 10 TABS/TUBE PO PRN (11:30)
[2016-09-03] MEDS ORDERED: GLUCAGON FOR INJ 1 MG VIAL SQ PRN (11:30)
[2016-09-03] MEDS ORDERED: GLUCOSE 40% GEL 15 GM TUBE PO PRN (11:30)
[2016-09-03] MEDS ORDERED: DEXTROSE 50% 50 ML SYR IV PRN (11:30)
[2016-09-03] MEDS ORDERED: INSULIN GLARGINE SOLOSTAR 100 UNITS/ML 3 ML PEN SC ONE ×2 (11:30→21:00)
[2016-09-03] MEDS: INSULIN ASPART 100 UNITS/ML 3 ML PEN SC SCH ×3 (12:14→21:00)
--- NOTE | 2016-09-03 12:31 | Pharmacy Progress Note ---
Glycemic Control Intl Consult Date of Service Sep 03, 2016. Scope Glycemic Pharmacist consulted by Dr Reardon on 09/03/16 for glycemic control and to write orders per LT[facility], located within [facility] inpatient glycemic control protocol Objective Weight (Kilograms): 85.200 Accuchecks BSG (last 24hrs): Test 09/03/16 09:40 09/03/16 11:08 Random Glucose 258 mg/dl (70-99) Bedside Glucose 327 mg/dl (70-90) Laboratory Data (last 24hrs) Test 09/03/16 06:01 09/03/16 09:40 White Blood Count 11.28 K/uL Red Blood Count 3.38 M/uL Hemoglobin 10.0 g/dL Hematocrit 30.6 % Mean Corpuscular Volume 90.5 fL Mean Corpuscular Hemoglobin 29.6 pg Mean Corpuscular Hemoglobin Concent 32.7 g/dl Platelet Count 133 K/uL Mean Platelet Volume 9.7 fL Neutrophils (%) (Auto) 91.2 % Lymphocytes (%) (Auto) 4.5 % Monocytes (%) (Auto) 4.0 % Eosinophils (%) (Auto) 0.0 % Basophils (%) (Auto) 0.0 % Neutrophils # (Auto) 10.29 K/uL Lymphocytes # (Auto) 0.51 K/uL Monocytes # (Auto) 0.45 K/uL Eosinophils # (Auto) 0.00 K/uL Basophils # (Auto) 0.00 K/uL Anion Gap 11.0 mmol/L BUN/Creatinine Ratio 31.5 Blood Urea Nitrogen 35 mg/dl Creatinine 1.10 mg/dl Potassium Level 3.4 mmol/L Sodium Level 141 mmol/L Recent Pertinent Medications Outpatient Anti-diabetic Regimen: * no prior dx of DM; however A1c 05/28/2015 was consistent with "prediabetes" Risk Factors for Insulin Resistance: * Steroids: initially started on Solu-Medrol 40mg IV Q 8 hours ---> increased to 60mg IV Q 8 hrs yesterday * Infection: receiving Vancomycin + Zosyn + Levofloxacin for PNX * Diet: ordered Regular diet + Boost Vanilla (41gm CHO per serving) TID w/ meals + Boost pudding (33gm CHO per serving) TID w/ meal. RN reports that patient is not eating the pudding but the daughters have been helping her finish the shakes. Diet overall is poor. Assessment & Plan ASSESSMENT: 09/03/16 * Patient with h/o "prediabetes" admitted with acute hypoxic respiratory failure , felt to be secondary to pneumonia +/- radiation pneumonitis * She has been requiring large amounts of O2 support, high doses of IV steroids , and she continues on bronchodilators today * She developed significant stress induced hyperglycemia today: last 2 BSGs = 258 and 327mg/dL * Will initiate a weight based basal / bolus regimen * Additional BSG check overnight with rapid acting insulin coverage will help combat hyperglycemia if starting basal dose inadequate * Note: I had changed her diet to Diabetic Type 2 today based upon current BSG pattern, however RN Irma notified me that her family is not happy with a diabetic diet being ordered for her as they feel she is not consuming adequate calories. They believe she will not eat well if carbs are restricted. The family wanted to give the patient a sticky bun for lunch today. RN volunteered to discuss the risks of hyperglycemia (greater infectious and e-lyte complications) with family. I however agreed to allowing the patient to eat what she desires if family is moving towards comfort care only. I will discuss conversation with Other Sports Coach Or Instructor as well. PLAN FOR INPATIENT GLYCEMIC CONTROL: * Basal insulin with LANTUS 10 units SQ BID - 1st dose STAT; hold if BSG less than 110 * Correctional Insulin with NOVOLOG per scale ACHS and at 0200 tonight to allow for additional coverage * Goal Range: Low 130 mg/dL - High 170 mg/dL * Correction Factor: 25 mg/dL/unit * Nutritional / Prandial insulin per carb ratio of 1 unit per 8 grams CHO consumed * Please note that the plan above was derived based on current level of insulin resistance and hospital stress. These recommendations are appropriate for inpatient admission only. Plan of care upon discharge will need to be reassessed to avoid potential outpatient hypo/hyperglycemia. Thank you.
--- NOTE | 2016-09-03 15:28 | CRITICAL CARE PROGRESS NOTE ---
DATE: 09/03/2016 HISTORY OF PRESENT ILLNESS: This is an 81-year-old woman with a history of mesothelioma status post chemo therapy and radiation therapy and cared for previously in [place] at [facility]. She was admitted to the hospital on August 30 secondary to shortness of breath and cough as well as fatigue, which has been ongoing for several weeks. She was initially admitted to telemetry and on September 01 was transferred to the intensive care unit for increased oxygen requirement. She was placed on 100% high-flow nasal cannula because she was very uncomfortable on a 100% nonrebreather mask. She has remained on high-flow oxygen for the past 2 days and has received 2 doses of Lasix. Last evening she had a desaturation and received Lasix. Today, she feels better than yesterday, although she is short of breath with movement and sometimes she desaturates when she is talking. She appears far more comfortable than she did when she was admitted to the intensive care unit. PHYSICAL EXAMINATION: VITAL SIGNS: Maximum temperature 36.7, heart rate 60s-70s, respiratory rate 24-30, blood pressure 108-144/60s-70s. Oxygen saturation 92-98%. A 24-hour fluid balance is positive 1.03 liters for yesterday and negative 1 liter overnight. GENERAL: She is awake, alert and in no distress. She is talking to her family in her room with oxygen saturations around 94%. LUNGS: She has bibasilar rales, no rhonchi or wheezes. HEART: Regular rate and rhythm. ABDOMEN: Soft, nondistended, nontender. EXTREMITIES: Warm. No edema. LABORATORY DATA: White blood cell count 11.28, hemoglobin 10, hematocrit 30.6, and platelets 133. Sodium 141, potassium 3.4, chloride 103, CO2 27, BUN 35, creatinine 1.1. Blood sugar 258, phosphorus 2.2. IMAGING DATA: Portable chest x-ray from this morning was reviewed and shows no significant change compared to yesterday. She has volume loss on the right side, a right pleural effusion with possible pleural thickening which is unchanged, left interstitial thickening and airspace opacities bilaterally. MEDICATIONS : Tylenol, Maalox, DuoNeb, vitamin D, Cosopt ophthalmic drops, Lovenox, Boost, Prozac, insulin sliding scale, Lantus, Floranex, Levaquin day 4, Cozaar, milk of magnesia, magnesium, Solu-Medrol, Zofran, Protonix, Zosyn day 4, vancomycin day 3, Effexor. IMPRESSION: 1. Acute hypoxemic respiratory failure secondary to pneumonia, possibly in combination with radiation pneumonitis. Her work of breathing is a little bit better today, I believe compared to yesterday and definitely better compared to when she was transferred to the ICU. She is still not coughing up any secretions. She is on bronchodilators and her Solu-Medrol was increased yesterday. 2. Mesothelioma with possible metastases to the omentum, status post radiation chemotherapy [facility] in [place]. 3. Hyperglycemia, steroid induced. Now on insulin with a glycemic consult with the pharmacy. 4. Bilateral pneumonia, Zosyn and Levaquin day 4, vancomycin day 3. 5. Hypokalemia and hypophosphatemia, being repleted. 6. History of depression. 7. History of vitamin D deficiency. 8. History of glaucoma. PLAN: 1. NEUROLOGIC: She has Ativan on her profile for sleep. She has been transferred from the Intensive Care Unit, but I would consider discontinuing that. 2. PULMONARY: Continue bronchodilators and Solu-Medrol. I will order incentive spirometry and she may benefit from BiPAP, but she has an aversion to having anything on her face. Try flutter valve. 3. CARDIOVASCULAR: Lasix p.r.n. and continue Cozaar. 4. GASTROINTESTINAL: She and her family are not enthused about restricting her to a diabetic diet. Until her blood sugars are under better control, I suggested that she restrict her carbohydrate intake. She is getting nutritional supplements. 5. INFECTIOUS DISEASE. Cultures were reviewed. She might benefit from bronchoscopy, but certainly she would require intubation in order to do so. The infectious disease service is following. 6. RENAL: She may be getting intravascularly volume depleted, based on her chemistries. Lasix p.r.n. Replete electrolytes. 7. PROPHYLAXIS. Continue Lovenox as well as proton pump inhibitor. 8. HEMATOLOGY: No acute or active issues, platelets are beginning to increase. Although, she is on 100% high-flow oxygen, she has been relatively stable in the intensive care unit and has not required any BiPAP for the past [address] Gale and I discussed transfer to step down with careful monitoring, which I believe is reasonable. The critical care service will continue to follow up on her status post transfer. Please call me with any questions or concerns. TRAV
[2016-09-03] MEDS ORDERED: VANCOMYCIN TROUGH SCH (15:30)
[2016-09-03] MEDS: VANCOMYCIN INJ 1,300 MG in SODIUM CHLORIDE 0.9% 250ML 250 ML IV SCH (16:12)
--- NOTE | 2016-09-03 16:33 | Hematology/Oncology Prog Note ---
Hematology/Onc Progress Note Date of Service Sep 03, 2016. Diagnoses mesothelioma Pneumonitis/ pneumonia/ Medications Medications Administered Medications (Trade) Dose Ordered Sig/Carol Route Start Time Stop Time Status Last Admin Dose Admin Levalbuterol (Xopenex 1.25MG/ 0.5ML Neb) 1.25 mg NOW STAT INH 08/30/16 20:56 08/30/16 21:01 DC 08/30/16 21:12 1.25 MG Ipratropium [place] 0.5 mg 0.5 mg NOW STAT INH 08/30/16 20:56 08/30/16 21:01 DC 08/30/16 21:12 0.5 MG Sodium Chloride (Nss 1000ml) 1,000 ml @ 200 mls/hr Q5H STAT IV 08/30/16 21:00 08/31/16 01:02 DC 08/30/16 21:00 200 MLS/HR Piperacillin Sod/ Tazobactam Sod 4.5 gm 4.5 gm NOW STAT IV 08/30/16 21:52 08/30/16 21:54 DC 08/30/16 22:23 4.5 GM Levofloxacin 750 mg/Prmx 150 ml @ 100 mls/hr DAILY@0100 IV 08/31/16 01:01 08/31/16 03:01 DC 08/31/16 02:00 100 MLS/HR Piperacillin Sod/ Tazobactam Sod 3.375 gm/Dextrose 115 ml @ 28.75 mls/ hr Q8H IV 08/31/16 04:00 09/01/16 10:13 DC 09/01/16 04:16 28.75 MLS/HR Levofloxacin/Prmx (Levaquin / D5W/ Premixed D5W) 150 ml @ 100 mls/hr Q48H IV 09/02/16 02:00 09/07/16 02:30 09/02/16 02:07 100 MLS/HR Dorzolamide/ Timolol (Cosopt Op Soln) 1 drops BID OPR 08/31/16 09:00 09/30/16 08:59 09/03/16 08:42 1 DROPS Losartan Potassium (coZAAR TAB) 100 mg QAM PO 08/31/16 09:00 09/30/16 08:59 09/03/16 08:42 100 MG Cholecalciferol (Vitamin D Tab) 2,000 inter.unit QAM PO 08/31/16 09:00 09/30/16 08:59 09/03/16 08:43 2,000 INTER.UNIT Pantoprazole Sodium (Protonix Tab) 40 mg DAILYBB PO 08/31/16 06:00 09/30/16 05:59 09/03/16 06:24 40 MG Magnesium Oxide (Mag-Ox Tab) 400 mg QPM PO 08/31/16 21:00 09/30/16 20:59 09/02/16 21:07 400 MG Fluoxetine HCl (Prozac Cap) 20 mg QAM PO 08/31/16 09:00 09/30/16 08:59 09/03/16 08:43 20 MG Albuterol/ Ipratropium (Duoneb) 3 ml QIDR INH 08/31/16 08:00 09/01/16 10:23 DC 09/01/16 07:30 3 ML Enoxaparin Sodium (Lovenox Inj) 40 mg QAM SQ 08/31/16 09:00 09/30/16 08:59 09/03/16 08:44 40 MG Venlafaxine HCl 37.5 mg 37.5 mg Q3D@2100 PO 08/31/16 21:00 09/30/16 20:59 08/31/16 20:29 37.5 MG Furosemide 40 mg/ Syringe 4 ml @ 4 mls/min NOW STAT IV 09/01/16 01:21 09/01/16 01:22 DC 09/01/16 01:27 4 MLS/MIN Methylprednisolone Sodium Succinate 125 mg/Syringe 2 ml @ 1.5 mls/min TODAY@0730 ONCE IV 09/01/16 07:30 09/01/16 07:36 DC 09/01/16 07:03 1.5 MLS/MIN Vancomycin HCl 1300 mg/Sodium Chloride 276 ml @ 125 mls/hr Q18H IV 09/02/16 04:00 09/09/16 03:59 09/03/16 16:12 125 MLS/HR Vancomycin HCl 2100 mg/Sodium Chloride 542 ml @ 200 mls/hr TODAY@0800 ONCE IV 09/01/16 08:00 09/01/16 10:42 DC 09/01/16 10:32 200 MLS/HR Potassium Chloride 10 meq/ Prmx 100 ml @ 100 mls/hr Q1H IV 09/01/16 08:15 09/01/16 11:14 DC 09/01/16 12:53 100 MLS/HR Magnesium Sulfate 1 gm/Prmx 100 ml @ 100 mls/hr TODAY@0845 ONCE IV 09/01/16 08:45 09/01/16 09:44 DC 09/01/16 09:09 100 MLS/HR Methylprednisolone Sodium Succinate 40 mg/Syringe 0.64 ml @ 1.5 mls/min Q8 IV 09/01/16 14:00 09/02/16 07:48 DC 09/02/16 06:12 1.5 MLS/MIN Piperacillin Sod/ Tazobactam Sod/ Dextrose (Zosyn Iv/D5 100ml) 120 ml @ 30 mls/hr Q8H IV 09/01/16 12:00 09/06/16 23:59 09/03/16 11:16 30 MLS/HR Albuterol/ Ipratropium 3 ml 3 ml Q4R INH 09/01/16 12:00 10/01/16 11:59 09/03/16 11:13 3 ML Methylprednisolone Sodium Succinate/ Syringe (Solu-Medrol IV/ Syringe) 0.96 ml @ 1.5 mls/min Q8H IV 09/02/16 14:00 10/02/16 13:59 09/03/16 13:23 1.5 MLS/MIN Enteral Nutritional Formula (Boost) 1 can TIDM PO 09/02/16 11:30 10/02/16 11:29 09/03/16 16:26 1 CAN Enteral Nutritional Formula (Boost Pudding) 1 cup TIDM PO 09/02/16 11:30 10/02/16 11:29 09/02/16 16:04 1 CUP Potassium Chloride 40 meq 40 meq 1200 ONCE PO 09/02/16 12:00 09/02/16 12:01 DC 09/02/16 13:18 40 MEQ Magnesium Sulfate/ Prmx (Magnesium Sulfate/Premixed D5W) 100 ml @ 100 mls/hr 1200 ONCE IV 09/02/16 12:00 09/02/16 12:59 DC 09/02/16 13:17 100 MLS/HR Lactobacillus Acidophilus (Floranex Tab) 4 tab QID PO 09/02/16 21:00 10/02/16 20:59 09/03/16 12:16 4 TAB Lorazepam 0.5 mg 0.5 mg HS PRN PO 09/02/16 20:45 10/02/16 20:44 09/02/16 21:08 0.5 MG Furosemide 40 mg/ Albumin Human 54 ml @ 54 mls/hr NOW STAT IV 09/03/16 02:25 09/03/16 03:24 DC 09/03/16 04:34 54 MLS/HR Potassium Phosphate/Sodium Chloride (Potassium Phosphate Inj/Nss 500ml) 507 ml @ 88 mls/hr TODAY@1115 ONCE IV 09/03/16 11:15 09/03/16 17:00 09/03/16 11:15 88 MLS/HR Insulin Aspart (novoLOG ASPART) SLIDING SCALE ACHS SC 09/03/16 11:30 10/03/16 11:29 09/03/16 12:14 9 UNITS Insulin Glargine (Lantus Solostar Pen) 10 unit NOW ONCE SC 09/03/16 11:30 09/03/16 11:31 DC 09/03/16 12:16 10 UNIT Subjective She remains afebrile. Still dest's with any movement however overall she feels that she is breathing somewhat better. She denies pain.. Review of Systems: Constitutional: Negative for night sweats, or fever Eyes: Negative for event change of vision ENT: Negative for epistaxis, nasal discharge, sore throat, or deafness Cardiovascular: Negative for chest pain, palpitations, dizziness, diaphoresis Respiratory: Negative for new shortness of breath,hemoptysis, or purulent cough Gastrointestinal: Negative for diarrhea, hematemesis, melena, nausea, vomiting , or dyspepsia Integumentary (skin): Negative for rash or jaundice discoloration Genitourinary: Negative for urinary frequency, hematuria, or dysuria Neurological: Negative for weakness, seizure activity, headache, or dizziness Lymphatic/Hematologic: Negative for petechiae, bleeding or new adenopathy Musculoskeletal: Negative for new joint or back pain Allergic/Immunologic: Negative for unusual rash or pruritis. Vital Signs Vital Signs Past 12 Hours Date Time Temp Pulse Resp B/P Pulse Ox O2 Delivery O2 Flow Rate FiO2 09/03/16 15:05 36.5 62 23 107/78 93 High Flow Oxygen 09/03/16 12:00 94 Free Flow/[place] 45.0 100 09/03/16 12:00 36.4 68 25 108/47 94 Free Flow/[place] 100 09/03/16 11:18 77 24 90 Nasal Cannula 95 09/03/16 10:00 36.4 63 24 117/63 98 Free Flow/[place] 100 09/03/16 08:00 36.4 74 30 122/48 90 Free Flow/[place] 100 09/03/16 08:00 90 Free Flow/[place] 45.0 100 09/03/16 07:15 56 26 92 Nasal Cannula 97 09/03/16 06:03 79 24 115/54 77 09/03/16 04:58 60 25 131/71 95 09/03/16 04:50 96 Nasal Cannula 45.0 90 Physical Exam Constitutional: vitals are stable. Alert and oriented Eyes: Eyes are VIOLA EOMI without conjuctival erythema or icterus. ENT: External examination was negative for masses. Neck: Negative for masses or palpable thyromegaly Respiratory: Lung sounds were generally decreased on the right with an occasional rhonchi. Left lung sounds clear Cardiovascular: Heart was RRR without significant murmur, gallops aoe rubs Gastrointestinal: No palpable hepatic or splenomegaly. The abdomen was soft with normal bowel sounds. Lymphatic system: there was no palpable peripheral lymphadenopathy Musculoskeletal System: The musculoskeletal system seemed concordant with age. Skin: The skin was negative for jaundice. Neurologic exam: The exam was negative for any focal findings. Deep tendon reflexes were equal and symmetrical. Psychiatric exam: Was essentially negative with normal mood and effect. Breast exam: Not done Extremities: Negative for significant edema erythema Laboratory Last 24 Hours Test 09/03/16 06:01 09/03/16 09:40 09/03/16 11:08 09/03/16 15:39 White Blood Count 11.28 K/uL Red Blood Count 3.38 M/uL Hemoglobin 10.0 g/dL Hematocrit 30.6 % Mean Corpuscular Volume 90.5 fL Mean Corpuscular Hemoglobin 29.6 pg Mean Corpuscular Hemoglobin Concent 32.7 g/dl Platelet Count 133 K/uL Mean Platelet Volume 9.7 fL Neutrophils (%) (Auto) 91.2 % Lymphocytes (%) (Auto) 4.5 % Monocytes (%) (Auto) 4.0 % Eosinophils (%) (Auto) 0.0 % Basophils (%) (Auto) 0.0 % Neutrophils # (Auto) 10.29 K/uL Lymphocytes # (Auto) 0.51 K/uL Monocytes # (Auto) 0.45 K/uL Eosinophils # (Auto) 0.00 K/uL Basophils # (Auto) 0.00 K/uL RDW Standard Deviation 46.5 fL RDW Coefficient of Variation 14.2 % Immature Granulocyte % (Auto) 0.3 % Immature Granulocyte # (Auto) 0.03 K/uL Phosphorus Level 2.2 mg/dl Magnesium Level 2.4 mg/dl Sodium Level 141 mmol/L Potassium Level 3.4 mmol/L Chloride Level 103 mmol/L Carbon Dioxide Level 27 mmol/L Anion Gap 11.0 mmol/L Blood Urea Nitrogen 35 mg/dl Creatinine 1.10 mg/dl Est Creatinine Clear Calc Drug Dose 39.5 ml/min Estimated GFR () 54.9 Estimated GFR (Non- 47.4 BUN/Creatinine Ratio 31.5 Random Glucose 258 mg/dl Calcium Level 9.2 mg/dl Bedside Glucose 327 mg/dl Vancomycin Level Trough 15.8 mcg/ml Assessment & Plan Mesothelioma Pneumonia/radiation pneumonitis I believe she is clinically somewhat better. O2 saturations still drifts down with most any movement but less so than before and she feels that she is breathing somewhat better. Records have been reviewed from [facility] and she received 4 cycles of Alimta/Carboplatin followed by radiation therapy.
--- NOTE | 2016-09-03 16:34 | Pharmacy Progress Note ---
Pharmacy Antibiotic Prog Note Date of Service: Sep 03, 2016. Subjective: The patient is currently receiving VANCOMYCIN 1300mg IV every 18 hours. The patient is currently on day # 3 of VANCOMYCIN IV therapy. Objective: Height (Feet): 5 Height (Inches): 0.00 Weight (Kilograms): 85.200 Levels: Item Value Date Time Vancomycin Level Trough 15.8 mcg/ml 09/03/16 1539 Lab Results (24hrs): Laboratory Tests Test 09/03/16 06:01 09/03/16 09:40 White Blood Count 11.28 K/uL Red Blood Count 3.38 M/uL Hemoglobin 10.0 g/dL Hematocrit 30.6 % Mean Corpuscular Volume 90.5 fL Mean Corpuscular Hemoglobin 29.6 pg Mean Corpuscular Hemoglobin Concent 32.7 g/dl Platelet Count 133 K/uL Mean Platelet Volume 9.7 fL Neutrophils (%) (Auto) 91.2 % Lymphocytes (%) (Auto) 4.5 % Monocytes (%) (Auto) 4.0 % Eosinophils (%) (Auto) 0.0 % Basophils (%) (Auto) 0.0 % Neutrophils # (Auto) 10.29 K/uL Lymphocytes # (Auto) 0.51 K/uL Monocytes # (Auto) 0.45 K/uL Eosinophils # (Auto) 0.00 K/uL Basophils # (Auto) 0.00 K/uL BUN/Creatinine Ratio 31.5 Blood Urea Nitrogen 35 mg/dl Creatinine 1.10 mg/dl Recent Pertinent Medications: Item Value Date Time Levofloxacin 750 150 ml @ 100 mls/hr 09/02/16 0200 mg/Prmx Q48H/IV 09/02/16 0207 Piperacillin Sod/ 120 ml @ 30 mls/hr 09/01/16 1200 Tazobactam Sod Q8H/IV 09/03/16 1116 4.5 gm/Dextrose Assessment & Plan: 81yo female receiving VANCOMYCIN / ZOSYN / LEVAQUIN for severe PNA. Renal function stable and good (SCr 1.1, CrCl ~40 ml/min). VANCOMYCIN: * Patient has been receiving VANCOMYCIN 1300mg IV q18h. * Trough level drawn prior to 1600 dose today = 15.8 mcg/mL * This drug level is Therapeutic. * Continue VANCOMYCIN 1300mg IV every 18 hours. * Goal trough level estimate: between 15 - 20 mcg/mL. * Will recheck a trough level in a few days or with any changes in renal function. Pharmacy will continue to follow and will adjust dose/frequency as necessary. Thank you
[2016-09-03] MEDS: INSULIN GLARGINE SOLOSTAR 100 UNITS/ML 3 ML PEN SC SCH (21:00)
[2016-09-03] MEDS: MAGNESIUM OXIDE 400 MG TAB PO SCH (21:15)
[2016-09-03] MEDS: VENLAFAXINE HCL XR 37.5 MG CAPXR PO SCH (21:15)
[2016-09-04] VITALS (10 sets, daily range): BP systolic 112–137; BP diastolic 53–73; PULSE 60–88; TEMP 36.3–36.8; O2SAT 90–96; Ht 152.4 cm; Wt 87.4 kg
--- NOTE | 2016-09-04 01:53 | Progress Note ---
Progress Note Called to bedside approximately 0100; patient noted by respiratory therapy and nursing to be hypoxic with saturation 88% S: Patient denies any shortness of breath, she expressed that she was comfortable and not feeling like she was struggling to breath. O : HR 50 BP 115/57 RR 28 Saturations 88-90 on high flow nasal cannula Respiratory examination: Patient has coarse breath sounds throughout lung moraes , difficulty to appreciate any focal areas that are worse than others; no evidence of wheezing. Cardiac: S1 and S2 with no added sounds or murmurs (though difficulty to auscultate given high flow O2) Impression: Acute Hypoxic respiratory distress secondary to resolving PNA and pulmonary congestion Plan: - Patient is declining at this time to have CPAP or BiPAP placement as she is claustrophobic. - Repeat CXR stat; shows some worsening of congestion - Discussed case with Dr. Kerr who went to assess patient Nebulizers changed to Xopenex and Atrovent 40 mg Lasix IV/with albumin administered
[2016-09-04] MEDS ORDERED: INSULIN ASPART 100 UNITS/ML 3 ML PEN SC ONE (02:00)
[2016-09-04] MEDS ORDERED: ALBUMIN 25% 50 ML with FUROSEMIDE INJ 40 MG IV STA ×2 (02:15)
[2016-09-04] MEDS: IPRATROPIUM BROMIDE NEB SOLN 0.02% 2.5 ML VIAL INH SCH ×3 (02:29→19:30)
[2016-09-04] MEDS: LEVALBUTEROL 1.25MG/0.5ML NEB INH SCH ×3 (02:29→19:30)
[2016-09-04] MEDS ORDERED: LEVALBUTEROL 1.25MG/0.5ML NEB INH PRN (02:30)
[2016-09-04] MEDS ORDERED: IPRATROPIUM BROMIDE NEB SOLN 0.02% 2.5 ML VIAL INH PRN (02:30)
[2016-09-04] MEDS: LEVOFLOXACIN / D5W 750 MG in PREMIXED IN D5W 150 ML IV SCH (02:32)
[2016-09-04] MEDS ORDERED: LEVALBUTEROL/IPRATROPIUM NEB INH SCH (03:00)
[2016-09-04] MEDS: PIPERACILL/TAZOBAC IV 4.5 GM in DEXTROSE 5% 100ML IV SCH ×3 (04:00→20:42)
[2016-09-04] MEDS: PANTOprazole SOD 40 MG TAB PO SCH (06:10)
[2016-09-04] MEDS: METHYLPREDNISOLONE IV 60 MG in SYRINGE 0 ML IV SCH ×3 (06:10→20:43)
[2016-09-04 06:53] LABS: BUN/CREATININE RATIO 40.2 (10-20); CALCIUM 9.2 mg/dl (8.5-10.1); CREATININE 0.86 mg/dl (0.60-1.20); MAGNESIUM 2.1 mg/dl (1.8-2.4); POTASSIUM 3.7 mmol/L (3.5-5.1)
[2016-09-04 06:54] LABS: PHOSPHORUS 2.4 mg/dl (2.5-4.9)
--- NOTE | 2016-09-04 07:12 | DIAGNOSTIC IMAGING REPORT ---
CHEST ONE VIEW PORTABLE CLINICAL HISTORY: hypoxia, mesothelioma, pnea dyspnea COMPARISON STUDY: 09/04/2016 FINDINGS: Diffuse bilateral parenchymal infiltrative change versus atypical pulmonary edema. Chronic elevation right hemidiaphragm. Moderate cardiomegaly. IMPRESSION: Diffuse bilateral parenchymal infiltrative change versus atypical pulmonary edema. No change radiographically from the prior exam. Electronically signed by: Michael Shell M.D. 09/04/2016 7:11 AM Dictated Date/Time: 09/04/2016 7:09 AM
--- NOTE | 2016-09-04 07:14 | DIAGNOSTIC IMAGING REPORT ---
CHEST ONE VIEW PORTABLE CLINICAL HISTORY: Sudden hypoxia. COMPARISON STUDY: Chest radiograph September 03, 2016. FINDINGS: Right hemithorax volume loss is again noted. A small right pleural effusion with right pleural thickening is unchanged. There is no pneumothorax. Diffuse interstitial thickening throughout the lungs is again noted. Cardiomediastinal silhouette is stable. IMPRESSION: 1. No significant change in appearance the chest. 2. Diffuse interstitial thickening within the lungs. The findings may reflect pulmonary edema or pneumonia superimposed upon chronic interstitial changes within the right lung. 3. No change in right hemithorax volume loss with a small right pleural effusion/pleural thickening. Electronically signed by: Angelito Mehta M.D. 09/04/2016 7:13 AM Dictated Date/Time: 09/04/2016 7:11 AM
[2016-09-04] MEDS: DORZOLAMIDE/TIMOLOL 22.3/6.8MG/ML 10 ML BTL OPR SCH ×2 (07:48→20:42)
[2016-09-04] MEDS: BOOST GLUCOSE CONTROL PO SCH ×3 (07:48→16:45)
[2016-09-04] MEDS: LACTOBACILLUS ACIDOPHILUS (FLORANEX) TAB PO SCH ×4 (07:49→20:42)
[2016-09-04] MEDS: LOSARTAN POTASSIUM 50 MG TAB PO SCH (07:49)
[2016-09-04] MEDS: FLUOXETINE HCL 20 MG CAP PO SCH (07:50)
[2016-09-04] MEDS: CHOLECALCIFEROL 1000 INTER.UNIT TAB PO SCH (07:50)
[2016-09-04] MEDS: ENOXAPARIN 40 MG/0.4 ML SYR SQ SCH (07:51)
[2016-09-04] MEDS: INSULIN GLARGINE SOLOSTAR 100 UNITS/ML 3 ML PEN SC SCH (07:56)
[2016-09-04] MEDS: INSULIN ASPART 100 UNITS/ML 3 ML PEN SC SCH ×4 (08:45→20:43)
[2016-09-04] MEDS: VANCOMYCIN INJ 1,300 MG in SODIUM CHLORIDE 0.9% 250ML 250 ML IV SCH (09:35)
--- NOTE | 2016-09-04 12:03 | Pharmacy Progress Note ---
Glycemic Control: Progress Nt Date of Service Sep 04, 2016. Scope Glycemic Pharmacist consulted by Dr Reardon on 09/03/16 for glycemic control and to write orders per [facility] inpatient glycemic control protocol. Objective Accuchecks BSG (last 24hrs): Test 09/03/16 17:02 09/03/16 21:43 09/04/16 02:30 09/04/16 05:19 Bedside Glucose 211 mg/dl (70-90) 142 mg/dl (70-90) 134 mg/dl (70-90) Random Glucose 137 mg/dl (70-99) Test 09/04/16 07:01 09/04/16 11:16 Bedside Glucose 132 mg/dl (70-90) 121 mg/dl (70-90) Laboratory Data (last 24hrs) Test 09/04/16 05:19 Anion Gap 11.0 mmol/L BUN/Creatinine Ratio 40.2 Blood Urea Nitrogen 35 mg/dl Creatinine 0.86 mg/dl Potassium Level 3.7 mmol/L Sodium Level 144 mmol/L HbA1c: 5.8% 05/28/15 Recent Pertinent Medications Outpatient Anti-diabetic Regimen: * N/A * A1c = consistent with "pre-diabetes" The patient is currently receiving: * Basal insulin: Lantus 10 units every 12 hours * Correctional Insulin: Novolog Correction per scale ACHS Goal Range: Low 130 mg/dL - High 170 mg/dL Correction Factor: 25 mg/dL/unit * Prandial insulin: Per carb ratio of 1 unit per 8 grams CHO consumed Risk Factors for Insulin Resistance: * Steroids * Infection * Diet Assessment & Plan ASSESSMENT: * Patient with h/o "prediabetes" admitted with acute hypoxic respiratory failure , felt to be secondary to pneumonia +/- radiation pneumonitis. A1c is outdated - will re-order per protocol. * Patient has been receiving high doses of IV RTC steroid dosing causing stress /steroid induced hyperglycemia * Pt insulin naive, therefore, initiated on weight based SQ basal bolus insulin regimen 09/03/16 * BSGs 211-142 [phone] since insulin regimen started * Pt has received 33 units of insulin over the past 24hrs * AM fasting BSG is in goal range at 132mg/dl --> no changes need to basal insulin at this time. However, when steroids are tapered basal insulin may need decreased. Will change to "range" based dosing per BSG to help prevent hypoglycemia when BSGs trending downwards * Steroids have their most profound effect on post-prandial hyperglycemia --> no changes needed to bolus insulin parameters at this time. Will adjust downwards with each step down in steroid dosing. PLAN FOR INPATIENT GLYCEMIC CONTROL: * Continue Basal insulin with LANTUS SQ BID - change dosing based on BSG * If BSG 120mg/dl or below --> do not give Lantus * If BSG 121-179mg/dl --> give Lantus 8 units * If BSG 180mg/dl or above --> give Lantus 10 units * Continue Correctional Insulin with NOVOLOG per scale ACHS or Q6hrs while NPO * Goal Range: Low 130 mg/dL - High 170 mg/dL * Correction Factor: 25 mg/dL/unit * Nutritional / Prandial insulin per carb ratio of 1 unit per 8 grams CHO consumed * Please note that the plan above was derived based on current level of insulin resistance and hospital stress. These recommendations are appropriate for inpatient admission only. Plan of care upon discharge will need to be reassessed to avoid potential outpatient hypo/hyperglycemia. Thank you.
--- NOTE | 2016-09-04 12:27 | PULMONARY PROGRESS NOTE ---
DATE: 09/04/2016 TIME: 11:30 a.m. SUBJECTIVE: The patient remains very short of breath. She is also anxious. Two of her daughters were present when I examined her. She had an episode during the night where she became significantly short of breath. Her saturations dropped. She is on high-flow oxygen at 96% at present. She has very little cough. The cough is dry. There has been no sputum production. She is not having chest pains. She apparently has intermittently had some sweats in the last week or two. She is not having significant fevers. Review of her records shows that the maximum temperature since admission has been 37.5 degrees. She has no appetite. There is reported significant weight loss in the past month. She has not had any vomiting. She does have a Shukla in place. She is not having significant pain. During the nighttime when she was short of breath, she was given some breathing treatments and she was given a dose of furosemide. OBJECTIVE: The patient's chart was reviewed. Her x-rays were reviewed. GENERAL: The patient appears fairly comfortable. As noted, she is anxious. VITAL SIGNS: Current temperature 36.4. HEENT: Pupils were reactive to light. Arcus senilis was noted. The high-flow nasal oxygen is in place and I could not examine the nasal passage. The oropharynx appeared unremarkable. No erythema or exudate was seen. NECK: Palpation of the neck reveals no lymph nodes. CHEST: Normal development. HEART: Rate is 84 per minute. The rhythm was regular. Blood pressure is 128/57. LUNGS: Respiratory rate is 26 breaths per minute. She did not appear labored. Most recent saturation was 90% and that was done with 96% FiO2 by high flow nasal. Auscultation of the lung moraes reveals the left lung to be fairly clear. Throughout the right lung are very high-pitched breath sounds and very coarse rales. The breath sounds overall are diminished on the right compared with the left. ABDOMEN: Soft. Bowel sounds were well heard in the abdomen. There was no tenderness to palpation, masses or organomegaly. EXTREMITIES: Showed no cyanosis, clubbing or edema. She has scars on both knees from prior knee replacements. LABORATORY DATA: CBC was not done today. Yesterday, the white count was 11.28, hemoglobin was 10, and platelets were 133,000. Electrolytes show sodium of 144, potassium 3.7, chloride 104, bicarb 29. BUN was 35 with a creatinine of 0.86. Calcium was 9.2, phosphorus 2.4, magnesium 2.1. Immunoglobulins were done. IgG was normal at 891, IgA was normal at 276, and IgM was decreased to 21.7 with a lower limit of normal of 40. They were done back on 09/01/2016. Chest x-ray done today shows diffuse bilateral parenchymal infiltrative changes. In the right lung, there is some pleural thickening, especially in the mid to upper lung field laterally. These x-rays are relatively unchanged since she came in. I have reviewed them as well as her CAT scan. Her family pulled out a report of the CAT scan done at [facility] on 08/21/2016. That report actually sounded similar to our report in that they reported extensive and increased infiltrate throughout much of the right lung that they thought may be from radiation changes and there were also multifocal left lung ground-glass opacities that they also suspected an inflammatory component. CURRENT MEDICATIONS: Include from a pulmonary perspective neb treatments with levalbuterol and ipratropium every 6 hours and p.r.n. and she is receiving methylprednisolone 60 mg IV q. 8 hours. She is on vancomycin, levofloxacin and Zosyn. IMPRESSIONS: 1. Respiratory failure with hypoxia. 2. Mesothelioma by history. 3. Extensive consolidations both lungs -- considerations include pneumonia versus radiation fibrosis versus delayed effect of chemotherapy versus progression of disease itself. COMMENTS AND RECOMMENDATIONS: The patient's daughter brought up the possibility of transfer to [facility]. I brought this up to the patient. She does not seem interested at present. She obviously is unstable based upon her oxygen needs. She has a severe shunt. Thus far, there has been no major improvement since admission. Likewise, the x-rays have not changed. The family has requested that I call one of her cancer doctors at [facility], a Dr. Cristy Barbosa. I will try and make that contact if at all feasible. There would be a question as to whether the patient would be stable for transfer even if that were desired. As of now, the patient is still a full code. I do not believe the possibility of no code has been addressed with her. Her daughters and I discussed this with the idea that tomorrow I would bring that up to the patient as to what her wishes are. Hopefully, she will not have an acute episode precipitating intubation prior to then. I believe she is dealing with an underlying malignancy which is incurable and thus I would have a tendency to recommend relatively conservative care but comfort care in this situation. As of now, however, she remains a full code.
--- NOTE | 2016-09-04 14:31 | Progress Note ---
Subjective Date of Service: Sep 04, 2016. Subjective resp distress overnight, remains on O2, remains on broad spectrum abx. no fevers. all cultures negative. ? transfer to [place]. Remains on steroids, cxr unchanged. Problem List Medical Problems: (1) Dehydration Status: Acute (2) Hypoxia Status: Acute (3) Hypoxia Status: Acute (4) Pneumonia Status: Acute (5) Pneumonitis Status: Acute (6) UTI (urinary tract infection) Status: Acute Objective Vital Signs Date Time Temp Pulse Resp B/P Pulse Ox O2 Delivery O2 Flow Rate FiO2 09/04/16 12:00 High Flow Oxygen 50.0 97 09/04/16 11:31 36.3 77 16 115/53 90 High Flow Oxygen 66.0 09/04/16 08:00 High Flow Oxygen 50.0 97 09/04/16 07:44 84 26 90 Nasal Cannula 96 09/04/16 07:43 36.4 67 20 128/57 90 High Flow Oxygen 96 09/04/16 04:00 92 High Flow Oxygen 50.0 97 09/04/16 03:59 36.4 68 22 137/62 91 High Flow Oxygen 09/04/16 02:29 72 24 92 Nasal Cannula 97 09/04/16 00:02 92 High Flow Oxygen 50.0 97 09/03/16 23:19 68 24 92 Nasal Cannula 97 09/03/16 23:19 36.6 71 20 115/57 91 High Flow Oxygen 09/03/16 20:17 36.5 64 22 120/56 95 High Flow Oxygen 09/03/16 20:00 92 High Flow Oxygen 50.0 97 09/03/16 19:29 66 24 96 Nasal Cannula 96 09/03/16 16:00 92 High Flow Oxygen 45.0 100 09/03/16 15:05 36.5 62 23 107/78 93 High Flow Oxygen Laboratory Results Item Value Date Time Blood Culture - Preliminary Resulted 08/30/162157 Blood NO GROWTH TO DATE. Blood Culture - Preliminary Resulted 08/30/162201 Blood NO GROWTH TO DATE. Last 24 Hours Test 09/03/16 15:39 09/03/16 17:02 09/03/16 21:43 09/04/16 02:30 Vancomycin Level Trough 15.8 mcg/ml Bedside Glucose 211 mg/dl 142 mg/dl 134 mg/dl Test 09/04/16 05:19 09/04/16 07:01 09/04/16 11:16 Sodium Level 144 mmol/L Potassium Level 3.7 mmol/L Chloride Level 104 mmol/L Carbon Dioxide Level 29 mmol/L Anion Gap 11.0 mmol/L Blood Urea Nitrogen 35 mg/dl Creatinine 0.86 mg/dl Est Creatinine Clear Calc Drug Dose 50.8 ml/min Estimated GFR () 73.9 Estimated GFR (Non- 63.8 BUN/Creatinine Ratio 40.2 Random Glucose 137 mg/dl Calcium Level 9.2 mg/dl Phosphorus Level 2.4 mg/dl Magnesium Level 2.1 mg/dl Bedside Glucose 132 mg/dl 121 mg/dl Assessment and Plan (1) Pleural effusion exudative Assessment & Plan: ? infectious vs malignancy related. can continue abx, would give 10 days total, all micro negative. may benefit from bronch, family considering transfer (2) Hypoxia Status: Acute (3) Malignant mesothelioma of pleura
--- NOTE | 2016-09-04 17:18 | Hematology/Oncology Prog Note ---
Hematology/Onc Progress Note Date of Service Sep 04, 2016. Diagnoses Malignant mesothelioma Hypoxic respiratory failure Medications Medications Administered Medications (Trade) Dose Ordered Sig/Carol Route Start Time Stop Time Status Last Admin Dose Admin Levalbuterol (Xopenex 1.25MG/ 0.5ML Neb) 1.25 mg NOW STAT INH 08/30/16 20:56 08/30/16 21:01 DC 08/30/16 21:12 1.25 MG Ipratropium [place] 0.5 mg 0.5 mg NOW STAT INH 08/30/16 20:56 08/30/16 21:01 DC 08/30/16 21:12 0.5 MG Sodium Chloride (Nss 1000ml) 1,000 ml @ 200 mls/hr Q5H STAT IV 08/30/16 21:00 08/31/16 01:02 DC 08/30/16 21:00 200 MLS/HR Piperacillin Sod/ Tazobactam Sod 4.5 gm 4.5 gm NOW STAT IV 08/30/16 21:52 08/30/16 21:54 DC 08/30/16 22:23 4.5 GM Levofloxacin 750 mg/Prmx 150 ml @ 100 mls/hr DAILY@0100 IV 08/31/16 01:01 08/31/16 03:01 DC 08/31/16 02:00 100 MLS/HR Piperacillin Sod/ Tazobactam Sod 3.375 gm/Dextrose 115 ml @ 28.75 mls/ hr Q8H IV 08/31/16 04:00 09/01/16 10:13 DC 09/01/16 04:16 28.75 MLS/HR Levofloxacin/Prmx (Levaquin / D5W/ Premixed D5W) 150 ml @ 100 mls/hr Q48H IV 09/02/16 02:00 09/07/16 02:30 09/04/16 02:32 100 MLS/HR Dorzolamide/ Timolol (Cosopt Op Soln) 1 drops BID OPR 08/31/16 09:00 09/30/16 08:59 09/04/16 07:48 1 DROPS Losartan Potassium (coZAAR TAB) 100 mg QAM PO 08/31/16 09:00 09/30/16 08:59 09/04/16 07:49 100 MG Cholecalciferol (Vitamin D Tab) 2,000 inter.unit QAM PO 08/31/16 09:00 09/30/16 08:59 09/04/16 07:50 2,000 INTER.UNIT Pantoprazole Sodium (Protonix Tab) 40 mg DAILYBB PO 08/31/16 06:00 09/30/16 05:59 09/04/16 06:10 40 MG Magnesium Oxide (Mag-Ox Tab) 400 mg QPM PO 08/31/16 21:00 09/30/16 20:59 09/03/16 21:15 400 MG Fluoxetine HCl (Prozac Cap) 20 mg QAM PO 08/31/16 09:00 09/30/16 08:59 09/04/16 07:50 20 MG Albuterol/ Ipratropium (Duoneb) 3 ml QIDR INH 08/31/16 08:00 09/01/16 10:23 DC 09/01/16 07:30 3 ML Enoxaparin Sodium (Lovenox Inj) 40 mg QAM SQ 08/31/16 09:00 09/30/16 08:59 09/04/16 07:51 40 MG Venlafaxine HCl 37.5 mg 37.5 mg Q3D@2100 PO 08/31/16 21:00 09/30/16 20:59 09/03/16 21:15 37.5 MG Furosemide 40 mg/ Syringe 4 ml @ 4 mls/min NOW STAT IV 09/01/16 01:21 09/01/16 01:22 DC 09/01/16 01:27 4 MLS/MIN Methylprednisolone Sodium Succinate 125 mg/Syringe 2 ml @ 1.5 mls/min TODAY@0730 ONCE IV 09/01/16 07:30 09/01/16 07:36 DC 09/01/16 07:03 1.5 MLS/MIN Vancomycin HCl 1300 mg/Sodium Chloride 276 ml @ 125 mls/hr Q18H IV 09/02/16 04:00 09/09/16 03:59 09/04/16 09:35 125 MLS/HR Vancomycin HCl 2100 mg/Sodium Chloride 542 ml @ 200 mls/hr TODAY@0800 ONCE IV 09/01/16 08:00 09/01/16 10:42 DC 09/01/16 10:32 200 MLS/HR Potassium Chloride 10 meq/ Prmx 100 ml @ 100 mls/hr Q1H IV 09/01/16 08:15 09/01/16 11:14 DC 09/01/16 12:53 100 MLS/HR Magnesium Sulfate 1 gm/Prmx 100 ml @ 100 mls/hr TODAY@0845 ONCE IV 09/01/16 08:45 09/01/16 09:44 DC 09/01/16 09:09 100 MLS/HR Methylprednisolone Sodium Succinate 40 mg/Syringe 0.64 ml @ 1.5 mls/min Q8 IV 09/01/16 14:00 09/02/16 07:48 DC 09/02/16 06:12 1.5 MLS/MIN Piperacillin Sod/ Tazobactam Sod/ Dextrose (Zosyn Iv/D5 100ml) 120 ml @ 30 mls/hr Q8H IV 09/01/16 12:00 09/06/16 23:59 09/04/16 11:40 30 MLS/HR Albuterol/ Ipratropium 3 ml 3 ml Q4R INH 09/01/16 12:00 09/04/16 02:13 DC 09/03/16 23:18 3 ML Methylprednisolone Sodium Succinate/ Syringe (Solu-Medrol IV/ Syringe) 0.96 ml @ 1.5 mls/min Q8H IV 09/02/16 14:00 10/02/16 13:59 09/04/16 15:00 1.5 MLS/MIN Enteral Nutritional Formula (Boost) 1 can TIDM PO 09/02/16 11:30 09/03/16 17:00 DC 09/03/16 16:26 1 CAN Enteral Nutritional Formula (Boost Pudding) 1 cup TIDM PO 09/02/16 11:30 09/03/16 17:00 DC 09/02/16 16:04 1 CUP Potassium Chloride 40 meq 40 meq 1200 ONCE PO 09/02/16 12:00 09/02/16 12:01 DC 09/02/16 13:18 40 MEQ Magnesium Sulfate/ Prmx (Magnesium Sulfate/Premixed D5W) 100 ml @ 100 mls/hr 1200 ONCE IV 09/02/16 12:00 09/02/16 12:59 DC 09/02/16 13:17 100 MLS/HR Lactobacillus Acidophilus (Floranex Tab) 4 tab QID PO 09/02/16 21:00 10/02/16 20:59 09/04/16 11:41 4 TAB Lorazepam 0.5 mg 0.5 mg HS PRN PO 09/02/16 20:45 10/02/16 20:44 09/02/16 21:08 0.5 MG Furosemide 40 mg/ Albumin Human 54 ml @ 54 mls/hr NOW STAT IV 09/03/16 02:25 09/03/16 03:24 DC 09/03/16 04:34 54 MLS/HR Potassium Phosphate/Sodium Chloride (Potassium Phosphate Inj/Nss 500ml) 507 ml @ 88 mls/hr TODAY@1115 ONCE IV 09/03/16 11:15 09/03/16 17:00 DC 09/03/16 11:15 88 MLS/HR Insulin Aspart (novoLOG ASPART) SLIDING SCALE ACHS SC 09/03/16 11:30 10/03/16 11:29 09/04/16 08:45 2 UNITS Insulin Glargine (Lantus Solostar Pen) 10 unit NOW ONCE SC 09/03/16 11:30 09/03/16 11:31 DC 09/03/16 12:16 10 UNIT Insulin Glargine (Lantus Solostar Pen) 10 unit Q12 SC 09/03/16 21:00 09/04/16 11:47 DC 09/04/16 07:56 10 UNIT Enteral Nutritional Formula 1 can 1 can TIDM PO 09/04/16 07:30 10/04/16 07:29 09/04/16 11:40 1 CAN Furosemide/ Albumin Human (Lasix Inj/ Albumin 25%) 54 ml @ 54 mls/hr NOW STAT IV 09/04/16 02:15 09/04/16 03:14 DC 09/04/16 02:33 54 MLS/HR Ipratropium [place] (Atrovent 0.02% 0.5MG/2.5ML Neb) 0.5 mg Q6R INH 09/04/16 03:00 10/04/16 02:59 09/04/16 07:40 0.5 MG Levalbuterol (Xopenex 1.25MG/ 0.5ML Neb) 1.25 mg Q6R INH 09/04/16 03:00 10/04/16 02:59 09/04/16 07:40 1.25 MG Subjective Ms. Jacobsen is comfortably seated in bed on high-flow oxygen. She had a desaturation episode last night and her oxygen was increased to 50 LPM. Since then, her sats have run in the low 90s. She does not appear visibly short of breath, but she states she does not feel meaningfully better than she did last week. She has intermittent coughing spells, though no sputum. She denies any fevers or chills. Review of Systems: Constitutional: No chills, No fever Eyes: No worsening of vision ENT: No unusual epistaxis Respiratory: + cough, + shortness of breath, No hemoptysis, No sputum Cardiovascular: No chest pain, No palpitations Abdomen: No nausea, No pain, No vomiting Musculoskeletal: No joint pain, No muscle pain Female : No dysuria, No urinary frequency Neurologic: No numbness/tingling, No weakness Heme: No abnormal bleeding/bruising Skin: No rash Vital Signs Vital Signs Past 12 Hours Date Time Temp Pulse Resp B/P Pulse Ox O2 Delivery O2 Flow Rate FiO2 09/04/16 16:03 36.7 61 18 112/73 96 09/04/16 16:00 High Flow Oxygen 50.0 97 09/04/16 12:00 High Flow Oxygen 50.0 97 09/04/16 11:31 36.3 77 16 115/53 90 High Flow Oxygen 66.0 09/04/16 08:00 High Flow Oxygen 50.0 97 09/04/16 07:44 84 26 90 Nasal Cannula 96 09/04/16 07:43 36.4 67 20 128/57 90 High Flow Oxygen 96 Physical Exam Constitutional: Level of Distress: NAD, chronically ill Psychiatric: Mental Status: active & alert Orientation: oriented except where noted, to time, to place, to person Eyes: EOM: EOMI ENMT: pertinent finding (high-flow nasal cannula in place) Lungs: Auscuitation: dry rales/crackles (diffusely in the right lung, left lung largely clear) Cardiovascular: Heart Auscultation: RRR, no murmurs Abdomen: Inspection & Palpation: soft, non-distended Extremities: edema Neurologic: Cranial Nerves: grossly intact Laboratory Last 24 Hours Test 09/03/16 21:43 09/04/16 02:30 09/04/16 05:19 09/04/16 07:01 Bedside Glucose 142 mg/dl 134 mg/dl 132 mg/dl Sodium Level 144 mmol/L Potassium Level 3.7 mmol/L Chloride Level 104 mmol/L Carbon Dioxide Level 29 mmol/L Anion Gap 11.0 mmol/L Blood Urea Nitrogen 35 mg/dl Creatinine 0.86 mg/dl Est Creatinine Clear Calc Drug Dose 50.8 ml/min Estimated GFR () 73.9 Estimated GFR (Non- 63.8 BUN/Creatinine Ratio 40.2 Random Glucose 137 mg/dl Calcium Level 9.2 mg/dl Phosphorus Level 2.4 mg/dl Magnesium Level 2.1 mg/dl Test 09/04/16 11:16 09/04/16 16:28 Bedside Glucose 121 mg/dl 183 mg/dl Assessment & Plan Ms. Jacobsen continues to be hypoxic due to the infiltrates in her right lung, questionably related to radiation pneumonitis versus an infection versus edema. Her x-rays appear mildly improved from admission, though that is mostly due to decreased effusion on that side. If anything, however, she has continued to deteriorate, with rising oxygen requirements. I fear she could be headed toward intubation. I spoke briefly with her family about this issue. Given her incurable malignancy, I advised them to carefully consider her goals of care. I think there is a real possibility that she may never come off of a ventilator if placed on one. They wanted to discuss this amongst themselves and with Ms. Jacobsen and we will readdress the issue again tomorrow. However, I advised them that now would be the best time to make a decision, before the issue is forced. In the meantime, supportive care continues with steroids and antibiotics, under the care of pulmonology and her critical care team.
[2016-09-04] MEDS ORDERED: LORAZEPAM 2 MG/ML 1 ML VIAL IV PRN (20:00)
--- NOTE | 2016-09-04 20:04 | Hospitalist Progress Note ---
Hospitalist Progress Note Date of Service Sep 04, 2016. Subjective Pt evaluation today including: conversation w/ patient, conversation w/ family , physical exam, chart review, lab review, review of studies, conversation w/ solutions architect consultant (Pulm), review of inpatient medication list PO Intake: glen po Voiding: leonard catheter in place Pt feeling SOB and remains on HFNC. Seems to be having an episode each night of PND. Daughter and pt think it's anxiety related too. Moving bowels, appetite improved, no abd pain. Constitutional: No fever Respiratory: + cough, + shortness of breath, No sputum Cardiovascular: No chest pain Abdomen: No pain Psychiatric: + anxiety Skin: No rash All Other Systems: Reviewed and Negative Objective Vital Signs Date Time Temp Pulse Resp B/P Pulse Ox O2 Delivery O2 Flow Rate FiO2 09/04/16 19:52 88 26 94 Nasal Cannula 96 09/04/16 19:47 36.8 60 20 114/65 93 09/04/16 16:03 36.7 61 18 112/73 96 09/04/16 16:00 High Flow Oxygen 50.0 97 09/04/16 12:00 High Flow Oxygen 50.0 97 09/04/16 11:31 36.3 77 16 115/53 90 High Flow Oxygen 66.0 09/04/16 08:00 High Flow Oxygen 50.0 97 09/04/16 07:44 84 26 90 Nasal Cannula 96 09/04/16 07:43 36.4 67 20 128/57 90 High Flow Oxygen 96 09/04/16 04:00 92 High Flow Oxygen 50.0 97 09/04/16 03:59 36.4 68 22 137/62 91 High Flow Oxygen 09/04/16 02:29 72 24 92 Nasal Cannula 97 09/04/16 00:02 92 High Flow Oxygen 50.0 97 09/03/16 23:19 68 24 92 Nasal Cannula 97 09/03/16 23:19 36.6 71 20 115/57 91 High Flow Oxygen 09/03/16 20:17 36.5 64 22 120/56 95 High Flow Oxygen 09/03/16 20:00 92 High Flow Oxygen 50.0 97 Physical Exam General Appearance: WD/WN, + mild distress Eyes: normal inspection, sclerae normal Neck: trachea midline Respiratory/Chest: no accessory muscle use, + decreased breath sounds (right side with crackles), + pertinent finding Cardiovascular: regular rate, rhythm, no edema, no gallop, no murmur Abdomen: normal bowel sounds, non tender, soft Extremities: non-tender, normal inspection, no pedal edema, no calf tenderness Neurologic/Psychiatric: alert Skin: normal color, warm/dry, no rash Laboratory Results Last 24 Hours Test 09/03/16 21:43 09/04/16 02:30 09/04/16 05:19 09/04/16 07:01 Bedside Glucose 142 mg/dl 134 mg/dl 132 mg/dl Sodium Level 144 mmol/L Potassium Level 3.7 mmol/L Chloride Level 104 mmol/L Carbon Dioxide Level 29 mmol/L Anion Gap 11.0 mmol/L Blood Urea Nitrogen 35 mg/dl Creatinine 0.86 mg/dl Est Creatinine Clear Calc Drug Dose 50.8 ml/min Estimated GFR () 73.9 Estimated GFR (Non- 63.8 BUN/Creatinine Ratio 40.2 Random Glucose 137 mg/dl Calcium Level 9.2 mg/dl Phosphorus Level 2.4 mg/dl Magnesium Level 2.1 mg/dl Test 09/04/16 11:16 09/04/16 16:28 Bedside Glucose 121 mg/dl 183 mg/dl Assessment and Plan 81 F with history of mesothelioma, presents with acute hypoxic respiratory failure, maybe infectious or radiation pneumonitis, there is some question of progression of mesothelioma, her course is more consistent with radiation pneumonitis, there are some questions if a lung biopsy, once less oxygen requirement, will be helpful Possible pneumonia, concern for gram negative or mrsa, expanded to triple coverage, vancomycin, levaquin and zosyn, holding on antifungals per ID recommendation Possible radiation pneumonitis, started on steroids requiring maximal oxygen supplementation -Pulm is following and appreciate recommendations -continue nebs -Plan to speak to her oncologist at [facility] [facility] as per Pulm but doubt pt is stable for transfer there currently -IV lasix seems to help minimally, ECHO showed: * Low normal LV systolic function. * Left ventricular diastolic dysfunction. * Normal chamber dimensions. * No significant valvular abnormalities * Aortic valve sclerosis moderate, without significant aortic valvular stenosis. Mesothelioma, followed by [facility] Oncology but may transfer care here, requesting records as per Oncology here Depression , significant, on prozac and Effexor -ativan prn Htn, Cozaar Proph-Lovenox
[2016-09-04] MEDS ORDERED: LORAZEPAM INJ 0.5 MG in SYRINGE 0.75 ML IV PRN (20:30)
[2016-09-04] MEDS: MAGNESIUM OXIDE 400 MG TAB PO SCH (20:43)
[2016-09-04] MEDS ORDERED: INSULIN GLARGINE SOLOSTAR 100 UNITS/ML 3 ML PEN SC SCH (21:00)
[2016-09-05] VITALS (23 sets, daily range): BP systolic 64–158; BP diastolic 47–114; PULSE 65–149; TEMP 36.7–37; O2SAT 78–94
[2016-09-05] MEDS: IPRATROPIUM BROMIDE NEB SOLN 0.02% 2.5 ML VIAL INH SCH ×2 (03:07→07:49)
[2016-09-05] MEDS: LEVALBUTEROL 1.25MG/0.5ML NEB INH SCH ×2 (03:07→07:49)
[2016-09-05] MEDS: VANCOMYCIN INJ 1,300 MG in SODIUM CHLORIDE 0.9% 250ML 250 ML IV SCH (03:49)
[2016-09-05] MEDS: PIPERACILL/TAZOBAC IV 4.5 GM in DEXTROSE 5% 100ML IV SCH (06:14)
[2016-09-05 06:22] LABS: BASO % 0.1 %; BASO ABS # 0.01 K/uL (0-0.2); COMPLETE YES; HEMATOCRIT 31.1 % (37-47); IG% 1.3 %; LYMPH % 5.6 %; LYMPH ABS # 0.61 K/uL (1.2-3.4); MEAN CELL VOLUME 88.4 fL (80-100); MEAN CORPUSCULAR HEMOGLOBIN 28.4 pg (25-34); MEAN CORPUSCULAR HGB CONC 32.2 g/dl (32-36); MEAN PLATELET VOLUME 9.3 fL (7.4-10.4); MONO % 5.5 %; NEUT % 87.5 %; PLATELET COUNT 104 K/uL (130-400); RED BLOOD COUNT 3.52 M/uL (4.2-5.4); WHITE BLOOD COUNT 10.94 K/uL (4.8-10.8)
[2016-09-05] MEDS: METHYLPREDNISOLONE IV 60 MG in SYRINGE 0 ML IV SCH (06:23)
[2016-09-05] MEDS: PANTOprazole SOD 40 MG TAB PO SCH (06:23)
[2016-09-05] MEDS ORDERED: NITROGLYCERIN 0.4 MG SL PER TAB CHARGE ONE (06:46)
[2016-09-05] MEDS ORDERED: NITROGLYCERIN 0.4 MG SL PER TAB CHARGE SL STA (06:50)
[2016-09-05] MEDS ORDERED: ASPIRIN 81 MG CHEW PO STA (06:50)
[2016-09-05] MEDS ORDERED: METOPROLOL TARTRATE 1 MG/ML VIAL ONE ×2 (06:55→07:05)
[2016-09-05 06:56] LABS: BUN/CREATININE RATIO 44.5 (10-20); CALCIUM 8.9 mg/dl (8.5-10.1); CREATININE 0.83 mg/dl (0.60-1.20); MAGNESIUM 2.2 mg/dl (1.8-2.4); POTASSIUM 3.4 mmol/L (3.5-5.1)
[2016-09-05] MEDS ORDERED: METOPROLOL TARTRATE 1 MG/ML VIAL IV STA (06:56)
--- NOTE | 2016-09-05 07:30 | DIAGNOSTIC IMAGING REPORT ---
CHEST ONE VIEW PORTABLE CLINICAL HISTORY: shortness of breath, chest pain dyspnea COMPARISON STUDY: 09/06/2016 FINDINGS: Mildly progressive findings of pulmonary edema. Chronic elevation right hemidiaphragm. Chronic pleural thickening right lateral hemithorax. IMPRESSION: Mildly progressive pulmonary edema compared to the prior exam. Electronically signed by: Michael Shell M.D. 09/05/2016 7:29 AM Dictated Date/Time: 09/05/2016 7:28 AM
[2016-09-05] MEDS ORDERED: FUROSEMIDE 40 MG/4 ML VIAL ONE ×2 (07:35→07:36)
[2016-09-05] MEDS ORDERED: DILTIAZEM BOLUS / DRIP IV STA (07:35)
[2016-09-05] MEDS ORDERED: FUROSEMIDE INJ 40 MG in SYRINGE 0 ML IV ONE (07:45)
[2016-09-05] MEDS ORDERED: MoRPHine SULFATE 2 MG/ML CARP ONE ×2 (07:45→07:53)
[2016-09-05] MEDS ORDERED: DILTIAZEM HCL INJ 125 MG in DEXTROSE 5% 100ML IV PRN (07:45)
[2016-09-05 07:52] LABS: CKMB/CK RATIO 8.3 (0-3.0)
[2016-09-05] MEDS ORDERED: MoRPHine SULFATE 2 MG/ML CARP IV ONE (08:00)
[2016-09-05] MEDS ORDERED: POTASSIUM CHLORIDE 10 MEQ TABCR PO ONE (08:00)
[2016-09-05] MEDS ORDERED: MoRPHine SULF/NSS 250MG/250ML 250 ML IV PRN (08:15)
--- NOTE | 2016-09-05 08:26 | Progress Note ---
Progress Note I was called to the bedside this morning at approximately 0700. Patient was complaining of chest and back pain. I arrived at the bedside, patient was in obvious distress. Daughter was at the bed-side with her. She complained of chest pain, but when asked about any details regarding the chest pain, she could not give any details. She was noted on the monitor to be in Afib with RVR. Patient did not have overt signs of pulmonary congestion. Her lung auscultation was difficult when interference from noise from her high-flow nasal cannula. She had coarse breath sounds throughout, with crackles R > L. She was dropping her saturations to the high 70s, so I requested to put her on a non-rebreather mask, to which she was agreeable. She did not want CPAP or BiPAP. An EKG was done prior to my arrival and show possible ST segment depression in the lateral leads. I proceeded to administer 324 mg ASA chew. I ordered 0.4 mg SL nitroglycerine x 2 for the patient. Her BP was stable in the 160s systolic. I then proceeded to give 5 mg Lopressor IV. This brought her HR to the 120-130s and her sBP to approximately the 110s systolic. I proceeded with an addition 2.5 mg, cautious not drop her blood pressure excessively. A chest x-ray was performed and did note increase pulmonary congestion, for which I ordered 40 mg Lasix IV. In addition we gave 2 x 0.25 mg IV Ativan. I then proceeded to start a Cardizem drip, without a bolus, to reduce risk of excessive blood pressure drop. At this point, I contacted the patient's primary physician Dr. Vergara and reviewed the case with her. I then ordered 2 mg IV Morphine to help with subjective shortness of breath and air hunger. Dr. Vergara arrived at the bed side to provide further assistance with management. All immediate family members arrived at the bedside at which point a conversation regarding goals of care was initiated. The patient stated she wished to be made DNR/DNI and the code status was changed in the EMR. We left the room shortly thereafter to provide the patient and her family with privacy. (Shaq Gaming MD) Resident Physician Supervision Note: I was present with Dr. Gaming during the history and exam. I discussed the case with the resident and agree with the findings and plan as documented in the note. Any exceptions or clarifications are listed here: please see my summary Documented By: Malu Vergara (Malu Vergara MD)
--- NOTE | 2016-09-05 08:38 | Death Pronouncement Note ---
Pronouncement Note Date & Time of Sep 05, 2016. 0832 Pronouncement At time of pronouncement the patients pupils were fixed and dilated, there was no spontaneous respiratory effort, no palpable pulse, no audible heart tones, and no response to pain or voice. Asystole was noted on the monitor technician.
--- NOTE | 2016-09-05 22:24 | Death Summary ---
Summary of Admission Date Aug 30, 2016 at 23:27 Date & Time of Sep 05, 2016. 0832 Cause of Mesothelioma Secondary Diagnoses Acute hypoxemic respiratory failure Rapid atrial fibrillation Radiation pneumonitis Suspected pneumonia Low normal LV systolic function Left ventricular diastolic dysfunction Aortic valve sclerosis moderate Depression HTN Hospital Course This patient was an 81 yo female with a h/o mesothelioma that is presenting to us with weakness and general fatigue which has been worsening since Aug 21. The patient states that she has been having increasing fatigue and has been checking her O2 sat periodically at home. They have been running in the 88-89% range and her pulse has been in the low hundreds. She also feels like her appetite has been becoming very poor. She denies any fever or chest pain at home but increasing SOB that resolves with rest. She recently was seen by her PCP for a 2 step however because of fatigue they were unable to complete it. On the evening of admission, the patient had an episode of coughing and her sat dropped to the 70s which concerned the daughter and they brought her into the ED. She was evaluated in the ED and found to have a leukocytosis and a consolidation in the RLL concerning for PNA and bronchiectasis. She was admitted and started on IV antibiotics, broad spectrum. Oncology, Pulmonology were consulted and there was thought that she may have radiation pneumonitis. This was treated with steroids. She was transferred to the ICU for 2 days for worsening respiratory failure but could not tolerate BiPAP and refused it, replacing it with HFNC. There was question of some superimposed acute CHF but IV lasix seems to help minimally, ECHO showed: * Low normal LV systolic function. * Left ventricular diastolic dysfunction. * Normal chamber dimensions. * No significant valvular abnormalities * Aortic valve sclerosis moderate, without significant aortic valvular stenosis. CTA Chest on admission showed: There is a stable 17 mm hypodensity within the left lobe of the liver. There are mildly enlarged mediastinal and hilar lymph nodes, similar to the preceding study. There was no evidence of thoracic aortic dilatation. There were no pulmonary artery filling defects to indicate acute pulmonary embolism. There is mild right-sided pleural thickening. As a small amount of perihepatic fluid on the right. There is extensive right lung pulmonary consolidation. There is bronchiectasis. There are multifocal groundglass opacities within the left lung. Diagnostic considerations include pneumonia versus pulmonary edema. There is a lower thoracic compression fracture. IMPRESSION: 1. No CT evidence of acute pulmonary embolism 2. No CT evidence of acute thoracic aortic aneurysm or dissection 3. Diffuse esophageal thickening 4. Mild mediastinal and hilar adenopathy unchanged from the prior study 5. Extensive right lung consolidation with bronchiectasis. 6. Multifocal left lung groundglass opacities, consistent with either a multifocal pneumonia or alveolar edema. Clinical and radiographic follow-up is recommended. This was reportedly similar to her recent CT chest done at [facility] on 08/21/16. She improved enough to be moved out of the ICU to the PCU and was maintained on HFNC however had 2 nights in a row of PND qhich was treated like flash pulm edema by overnight MD and with some improvement. Then, she had development of chest pain, went into rapid atrial fibrillation and had desaturations to the 70s on her HFNC on the morning of her . She was quite tachypneic, moaning in pain despite receiving nitroglycerin, ASA, and ativan. She refused to continue to wear Venturi mask and was placed back on HFNC and continued to saturate in the low 80s. She was given IV lopressor and her heart rate did not really respond. Her blood pressure was in the 80s-90s systolic at that point and she was not doing well at all. She was able to tell me when asked that she did not want to be intubated or resuscitated. Family was all in agreement and we moved toward comfort measures at that point. She was then given morphine IV to help with her chest pain and for air hunger and she then appeared much more comfortable. Unfortunately she within approximately 30 minutes from respiratory failure secondary to malignant mesothelioma causing increased cardiac demand and mismatch. She was pronounced at 0832 with multiple family members present. Copy To Vicente Jaquez M.D.
[2016-09-06] MEDS ORDERED: VANCOMYCIN TROUGH ONE (15:30)
--- NOTE | 2016-10-10 07:46 | EDITING REQUIRED CODING QUERY ---
CODING QUERY Dr. Vergara, To promote full compliance with coding requirements relating to patient care, provider participation is requested in all cases of senior technical support analyst uncertainty. Please assist us with the question(s) below: Coding Question(s): Please document if SIRS ( ) is not due to Sepsis ( ) is due to Sepsis ( ) Other Please Explain: (x ) Unable to determine Physician's Response(s): Thank you Lalo Gautam Principal Diagnosis: "_that condition established after study, to be chiefly responsible for occasioning the admission of the patient to the hospital for care." Co-Existing Principal Diagnosis: "_when two or more diagnoses equally meet the criteria for principal diagnosis as determined by the circumstances of admission, diagnostic work up, and/or therapy provided, and the Alphabetic Index, Tabular List, or another coding guideline does not provide sequencing direction, any one of the diagnoses may be sequenced first." "When the physician has documented what appears to be a current diagnosis in the body of the record, but has not included the diagnosis in the final diagnostic statement, the physician should be asked whether the diagnosis should be added." ([facility] 2 QTR90. p3-4)
== END 2016-09-05 08:32 | disposition expired | DRG 177 ==
LOC: ENRESERVDT → ENRESERVTM → C.EDB 20:34 → C.2T 23:27 → C.MSICU 09-01 07:32 → C.2E 09-03 14:21
PROVIDERS: ADMIT Hospitalist; ATTEND Hospitalist
DX: J15.6 Pneumonia due to other Gram-negative bacteria (principal); J96.01 Acute respiratory failure with hypoxia; C78.6 Secondary malignant neoplasm of retroperitoneum and peritoneum; J15.212 Pneumonia due to Methicillin resistant Staphylococcus aureus; J70.0 Acute pulmonary manifestations due to radiation; I10 Essential (primary) hypertension; D47.2 Monoclonal gammopathy; M19.90 Unspecified osteoarthritis, unspecified site; E55.9 Vitamin D deficiency, unspecified; C45.9 Mesothelioma, unspecified; F32.9 Major depressive disorder, single episode, unspecified; J44.9 Chronic obstructive pulmonary disease, unspecified; Z66 Do not resuscitate; H40.9 Unspecified glaucoma; K21.9 Gastro-esophageal reflux disease without esophagitis; I50.9 Heart failure, unspecified; K58.9 Irritable bowel syndrome, unspecified; F41.9 Anxiety disorder, unspecified; Z96.659 Presence of unspecified artificial knee joint; E87.6 Hypokalemia; E83.42 Hypomagnesemia; Z85.89 Personal history of malignant neoplasm of other organs and systems; Z90.722 Acquired absence of ovaries, bilateral; Z90.710 Acquired absence of both cervix and uterus; Z99.81 Dependence on supplemental oxygen; Z80.41 Family history of malignant neoplasm of ovary; Z90.79 Acquired absence of other genital organ(s); Z90.89 Acquired absence of other organs; Z80.0 Family history of malignant neoplasm of digestive organs; Z98.890 Other specified postprocedural states; Z90.49 Acquired absence of other specified parts of digestive tract; Z83.3 Family history of diabetes mellitus; Z82.49 Family history of ischemic heart disease and other diseases of the circulatory system; Z79.899 Other long term (current) drug therapy

== ENCOUNTER → 2016-08-30 | Outpatient (CLI) | payer OTHER, MEDICARE ==
[2016-08-30 17:38] LABS: BASO % 0.4 %; BASO ABS # 0.04 K/uL (0-0.2); COMPLETE YES; EOS % 4.1 %; HEMATOCRIT 35.2 % (37-47); LYMPH % 6.5 %; LYMPH ABS # 0.72 K/uL (1.2-3.4); MEAN CELL VOLUME 90.3 fL (80-100); MEAN CORPUSCULAR HEMOGLOBIN 29.2 pg (25-34); MEAN CORPUSCULAR HGB CONC 32.4 g/dl (32-36); MEAN PLATELET VOLUME 9.8 fL (7.4-10.4); MONO % 6.7 %; NEUT % 81.3 %; PLATELET COUNT 179 K/uL (130-400)
[2016-08-30 17:48] LABS: BLOOD UREA NITROGEN 17 mg/dl (7-18); BUN/CREATININE RATIO 18.8 (10-20); CALCIUM 9.6 mg/dl (8.5-10.1); CARBON DIOXIDE 25 mmol/L (21-32); CHLORIDE 102 mmol/L (98-107); GLUCOSE 120 mg/dl (70-99); MAGNESIUM 1.9 mg/dl (1.8-2.4); SODIUM 137 mmol/L (136-145)
== END | disposition home or self-care (01) ==
LOC: C.LABPBG 15:17
PROVIDERS: ATTEND Neuromusculoskeletal Medicine & OMM
DX: R06.00 Dyspnea, unspecified (principal); I10 Essential (primary) hypertension